=== PATIENT | female | born 1945 | race Caucasian/White ===

== ENCOUNTER 2023-01-21 11:40 | Observation (INO) | payer OTHER, SELFPAY ==
[2023-01-21] VITALS (8 sets, daily range): BP systolic 122–218; BP diastolic 66–117; PULSE 60–140; RESP 14–19; TEMP 36.4–36.8; O2SAT 95–98; BMI 26.5
--- NOTE | ~2023-01-21 | XR_ITS ---
EXAMINATION: XR CHEST 2 VIEW CLINICAL INFORMATION: Chest pain COMPARISON: 05/30/2015 TECHNIQUE: PA and lateral views of the chest obtained. FINDINGS: The lungs are clear. There are no pleural effusions. The cardiomediastinal silhouette is normal. Spondylotic changes are noted in the dorsal spine. XR/XR chest 2V IMPRESSION: No acute cardiopulmonary disease.
--- NOTE | ~2023-01-21 | US_ITS ---
EXAMINATION: US VENOUS ULTRASOUND WITH DOPPLER LOWER EXTREMITY, RIGHT CLINICAL INFORMATION: Right leg swelling COMPARISON: None available. TECHNIQUE: Ultrasound of the deep veins is performed from the hip to the calf with compression sonography and color and pulse Doppler assessment. Spectral analysis with color-flow imaging is performed. FINDINGS: There is normal venous compression and respiratory variation and augmented flow. The visualized common femoral vein, superficial femoral vein, profunda femoral vein, popliteal vein, and the trifurcation region shows no evidence of deep venous thrombosis. There is a complicated cyst in the right popliteal fossa measuring 5.5 x 2.9 x 1.0 cm consistent with a right popliteal fossa Hoff's cyst. US/US venous duplex LE RT IMPRESSION: 1. No evidence of deep vein thrombosis in the right femoral-popliteal system. 2. Complex right popliteal fossa Hoff's cyst.
--- NOTE | 2023-01-21 11:50 | ECG_ITS ---
Test Reason : pain Blood Pressure : / mmHG Vent. Rate : 142 BPM Atrial Rate : 000 BPM P-R Int : 000 ms QRS Dur : 076 ms QT Int : 316 ms P-R-T Axes : 000 014 068 degrees QTc Int : 486 ms Atrial fibrillation with rapid ventricular response Moderate voltage criteria for LVH, may be normal variant ( R in aVL , Sokolow-Vasquez ) Cannot rule out Anterior infarct , age undetermined Abnormal ECG When compared with ECG of 28-FEB-2017 01:49, Atrial fibrillation has replaced Sinus rhythm Vent. rate has increased BY 78 BPM Referred By: Mauricio Lai Electronically Signed By:RUSH MENDOZA
--- NOTE | 2023-01-21 11:50 | ED_ITS ---
HPI - General Adult General Chief complaint: General Medical Stated complaint: SOB Chest Tightness Etc Time Seen by Provider: 01/21/23 12:41 Source: patient and family ( ) Mode of arrival: ambulatory Limitations: no limitations History of Present Illness HPI narrative: 77-year-old female who presents emergency department for evaluation of dizziness, diaphoresis, nausea, shortness of and rapid heartbeat. Patient states she woke up this morning at 07:00 hours. States when she started to walk around in her room she felt lightheaded and dizzy if she was going to pass out. She then became diaphoretic. She developed nausea with no vomiting. She felt her heart was beating very fast and she felt short of breath. She denied any chest pain, neck pain, jaw pain or back pain. This is the 1st time she has had the symptoms . She states that she has noted urinary frequency over the past several months. she denied dysuria or urgency. She states she had 1 episode of diarrhea last night. She denied any dark black bowel movements or bloody bowel movements. Patient states she has noticed swelling in her lower extremities with the right leg being more swollen the left which she believes is been going on for months and sometimes goes away completely. She has noticed increased swelling in her right lower extremity over the past several days with some increased pain in the right leg compared to the left. Related Data Allergies Allergy/AdvReac Type Severity Reaction Status Date / Time Penicillins [PENICILLINS] Allergy Intermediate HIVES Verified 01/21/23 11:49 penicillin V Allergy Unknown Hives Verified 01/21/23 11:49 [facility] Past Medical History [facility] Narrative: Past medical history: Hypertension, asthma, gallstone pancreatitis 2016. Surgical history: Cholecystectomy 2016, hysterectomy. Social history: Patient is and is here with her , James. The she denies tobacco, alcohol and drug use Social History Social History Advance Directives: No Advance Directives Information Provided: Yes Physical Exam ED Vital Signs: Vital Signs - 24 hr 01/21/23 11:49 01/21/23 12:56 Temperature 98 F 97.8 F Pulse Rate 128 H 140 H Respiratory Rate 19 14 Blood Pressure 143/93 H 195/117 H Pulse Oximetry 96 97 Oxygen Delivery Method Room Air Room Air BMI result Body Mass Index 26.5 patient's vital signs revealed an elevated heart rate of 128, elevated respiratory rate of 19, elevated blood pressure of 143/93 with normal temperature normal O2 saturation on room air. Exam: General: Awake, alert in no distress Head: Normocephalic, atraumatic EENT: PERRL, Lids normal, sclera normal, conjunctiva normal, nose normal , ears normal, throat without erythema or exudates Neck: Supple, no adenopathy, trachea midline and nontender Lung: breath sounds symmetric, no wheezing, rales or rhonchi Chest: symmetric movement, nontender Heart: Rapid, irregularly irregular heart rate with normal S1, S2 no murmurs or rubs Abdomen: soft, non-tender, nondistended, normal bowel sounds Back: no vertebral tenderness, no CVAT Extremities: no deformities, moves all extremities symmetrically, patient has trace to 1+ pitting edema in the right lower extremity compared to the left, right lower extremity is larger than the left Skin: no rashes, no lesion, normal color and warmth Neuro: Awake, alert, oriented, normal speech, cranial nerves intact, moves all extremities symmetrically Psych: Pleasant, cooperative Course Course Course Narrative: E- 77-year-old female presents for evaluation of chest tightness, shortness of breath, nausea and dizziness since she woke up this morning. Plan for cardiac workup Medications Administered Discontinued Medications Generic Name Dose Route Start Last Admin Trade Name Freq PRN Reason Stop Dose Admin Aspirin 324 mg 01/21/23 13:51 01/21/23 14:22 Aspirin 81 Mg Tab.Chew PO 01/21/23 13:52 324 mg ONCE ONE Administration Diltiazem HCl 20 mg 01/21/23 12:42 01/21/23 13:02 Diltiazem Hcl 50 Mg/10 Ml Vial IVPUSH 01/21/23 12:43 20 mg STAT STA Administration Enoxaparin Sodium 70 mg 01/21/23 13:51 01/21/23 14:22 Enoxaparin Sodium 80 Mg/0.8 Ml Syringe 1 mg/kg (70 mg) 01/21/23 13:52 70 mg SUBCUT Administration ONCE ONE Medical Decision Making Medical Decision Making MDM Narrative: 77-year-old female with a history of hyperlipidemia, asthma, gallstone pancreatitis, cholecystectomy, hysterectomy who presents emergency department for evaluation of a dizziness, shortness of breath, rapid heart rate that she experience this morning when she woke up at 07:00 hours. Have on presentation to the emergency department the patient was found to have a rapid irregular heart rate 128-160 beats per minute. Exam did reveal rapidly irregular heart rate with trace to 1+ pitting edema to her right lower extremity which was asymmetric compared to the left. Twelve EKG revealed new onset atrial fibrillation with rapid ventricular rate. I ordered the following evaluation CBC, CMP, troponin, BNP, PT/ INR, PTT. Patient was ordered to get diltiazem 20 mg IV, she was placed on a cardiac and O2 saturation monitor . 1431: Patient's 12 EKG is consistent with new onset atrial fibrillation, the patient does have a Q-wave in V1 with for R-wave progression V2 and V3, [address] segment depression V4 through V6. No significant T-wave abnormalities. Compared to EKG dated 02/28/2017 the atrial fibrillation is new, Q-wave in V1 and poor R-wave progression V2 through V3 are new, ST segment depression V4 through V6 are new. Patient's repeat EKG at 14:14 hours revealed that she spontaneously converted to a normal sinus rhythm, she still has a Q-wave in V1 with poor R-wave progression V2 to V3. Patient's laboratory evaluation did reveal an elevated troponin at 48.5 with repeat pending at 15:15 hours. I did discuss the patient's presentation, EKG findings and elevated troponin with the covering senior applications architect, Dr. Styles who felt that the elevated troponin was most likely a type 2 injury caused by her rapid heart rate /atrial fibrillation. he felt the patient could be managed at this facility does not need to be transferred for cardiac catheterization at this time. Patient does have elevated blood pressures and I started her on Cardizem CD 120 mg with 1st oral dose here in the emergency department. 1446: I did discuss the patient's presentation, EKG and laboratory findings with the covering hospitalist, the patient will be admitted to the hospital service for further evaluation and management. Differential Diagnosis Differential Diagnoses: The differential diagnosis associated with the presentation includes differential diagnosis includes was not limited to new onset atrial fibrillation, congestive heart failure, pneumonia, DVT, pulmonary embolism, myocardial infarction, myocardial ischemia, hyperthyroidism Admission/Observation Consideration of admission/observation: Escalation of care including admission/observation considered Consult Healthcare Provider Management of the patient was discussed with: Hospitalist Lab Data MDM Lab Attestation statement: I reviewed the patient's lab results. my independent interpretation patient's laboratory evaluation is as follows: CBC was normal. CMP revealed an elevated glucose of 135. LFTs were normal. Lipase was normal. High sensitive troponin I was elevated at 48.5 01/21/23 12:18 01/21/23 12:18 Labs: Lab Results 01/21/23 Range/Units 12:18 WBC 9.8 (4.8-10.8) X10*3/uL RBC 5.33 (4.20-5.50) X10*6/uL Hgb 14.7 (12.0-16.0) g/dl Hct 45.8 (37.0-47.0) % MCV 85.9 (80.0-98.0) fL MCH 27.6 (27.0-33.0) pg MCHC 32.1 (31.0-35.0) g/dl RDW 13.4 (11.0-16.0) % Plt Count 290 (160-400) X10*3/uL MPV 10.7 (9.4-12.3) fL Immature Gran % (Auto) 0.3 (0.0-0.4) % Neut % (Auto) 73.8 H (45-73) % Lymph % (Auto) 15.0 L (20-40) % [place] % (Auto) 7.8 (2-11) % Eos % (Auto) 2.0 (0-4) % Baso % (Auto) 1.1 (0-2) % Lymph # (Auto) 1.5 (1.2-4.9) X10*3/uL [place] # (Auto) 0.8 (0.1-1.2) X10*3/uL Eos # (Auto) 0.2 (0.0-0.4) X10*3/uL Baso # (Auto) 0.1 (0.0-0.2) X10*3/uL Abs Immat Gran (auto) 0.03 (0.00-0.03) X10*3/uL Absolute Neuts (auto) 7.2 (2.0-8.3) x10*3/uL Absolute Nucleated RBC 0.000 (0.0-0.012) X10*3/uL Nucleated RBC % (auto) 0.0 (0.0-0.2) /100WBC PT 11.7 (11.1-13.3) SEC INR 1.0 (0.9-1.1) APTT 36.1 (26.0-36.4) SEC Sodium 139 (135-145) mmol/L Potassium 4.0 (3.3-5.1) mmol/L Chloride 104 (96-108) mmol/L Carbon Dioxide 26 (22-29) mmol/L Anion Gap 13 (12-20) BUN 14 (9-16) mg/dL Creatinine 0.80 (0.5-1.4) mg/dL Estim Creat Clear Calc 56.5 Estimated GFR > 60 Random Glucose 135 H (60-115) mg/dL Calcium 9.7 (8.4-10.2) mg/dL Total Bilirubin 0.6 (0.0-1.0) mg/dL AST 21 (5-31) U/L ALT 13 (0-31) U/L Alkaline Phosphatase 88 (39-117) U/L Troponin I High Sens 48.5 H (<3.5-17.0) ng/L B-Natriuretic Peptide 161 H (<100) pg/mL Total Protein 6.9 (6.5-8.0) g/dL Albumin 4.0 (3.5-5.0) g/dL Lipase 15 (8-78) U/L Independent Interpretation I performed an independent interpretation of an: EKG and Plain X-Ray ( one-view chest x-ray) Interpretation: my interpretation patient's one-view chest x-ray is as follows: No acute disease my independent interpretation the patient's 12 EKG is as follows: Atrial fibrillation with a rapid ventricular response of 142 beats per minute, no ST segment elevation, [address] segment depression V4, V5 and V6. Q-wave in V1 with poor R-wave progression V 2 to V3, no significant T-wave abnormalities, no PVCs. My independent interpretation patient's 12 EKG done at 14:14 hours is as follows: Normal sinus rhythm with a rate of 69, no ST segment elevation, no ST segment depression, Q-wave in V1, poor R-wave progression V2 to V3, no significant T-wave abnormalities, compared to the previous EKG the atrial fibrillation has resolved. Radiology Impression Discussion of test interpretation with radiology: I have reviewed the radiologist's reading. Radiologist Impression: XR chest 2V IMPRESSION: No acute cardiopulmonary disease. Dictated By: Sal Toussaint MD Critical Care Time Critical Care Time Critical Care Time: Yes Total Critical Care Time: 45 Attestation: Critical Care: The patient was critically ill with a high probability of imminent or life threatening deterioration. I spent greater than 30 minutes of discontinuous time evaluating the patient,delivering critical care at the bedside, discussing and evaluating pertinent data with consultants. Critical care time does not include time spent performing separately billable procedures or teaching. Total time spent performing critical care was 45 minutes. Discharge Plan Discharge Patient Disposition: Admitted As Inpatient
[2023-01-21 12:25] LABS: MANUAL DIFF FLAG NO
[2023-01-21 12:28] LABS: Basophils Absolute Auto 0.1 X10*3/uL (0.0-0.2); Basophils Percent Auto 1.1 % (0-2); Eosinophils Absolute Auto 0.2 X10*3/uL (0.0-0.4); Hematocrit 45.8 % (37.0-47.0); Hemoglobin 14.7 g/dl (12.0-16.0); Imm Gran Abs Auto 0.03 X10*3/uL (0.00-0.03); Imm Gran Pct Auto 0.3 % (0.0-0.4); Lymphocytes Absolute Auto 1.5 X10*3/uL (1.2-4.9); Mean Corpuscular HGB Conc 32.1 g/dl (31.0-35.0); Mean Corpuscular Hemoglobin 27.6 pg (27.0-33.0); Mean Corpuscular Volume 85.9 fL (80.0-98.0); Mean Platelet Volume 10.7 fL (9.4-12.3); Monocytes Absolute Auto 0.8 X10*3/uL (0.1-1.2); Monocytes Percent Auto 7.8 % (2-11); Neutrophils Absolute Auto 7.2 x10*3/uL (2.0-8.3); Neutrophils Percent Auto 73.8 % (45-73); Platelet Count 290 X10*3/uL (160-400); Red Blood Count 5.33 X10*6/uL (4.20-5.50); Red Cell Distribution Width 13.4 % (11.0-16.0); White Blood Count 9.8 X10*3/uL (4.8-10.8)
[2023-01-21 12:37] LABS: Prothrombin Time 11.7 SEC (11.1-13.3)
--- NOTE | 2023-01-21 12:38 | PC.NURSE ---
alert and oriented, respirations even and unlabored. placed on ct technologist, noted to be in afib. pt denies any hx of afib, no blood thinners. iv established, providers made aware of pt.
[2023-01-21 12:39] LABS: Partial Thromboplastin Time 36.1 SEC (26.0-36.4)
[2023-01-21 12:44] LABS: Alanine Aminotransferase 13 U/L (0-31); Alkaline Phosphatase 88 U/L (39-117); Anion Gap 13 (12-20); Aspartate Amino Transferase 21 U/L (5-31); Bilirubin Total 0.6 mg/dL (0.0-1.0); Blood Urea Nitrogen 14 mg/dL (9-16); Calcium 9.7 mg/dL (8.4-10.2); Carbon Dioxide 26 mmol/L (22-29); Chloride 104 mmol/L (96-108); Creatinine Clr Calc Pharmacy 56.5; Estimated Glomerular Filt Rate > 60; Glucose Random 135 mg/dL (60-115); Lipase 15 U/L (8-78); Sodium 139 mmol/L (135-145); Total Protein 6.9 g/dL (6.5-8.0)
[2023-01-21 12:50] LABS: B Type Natriuretic Peptide 161 pg/mL (<100)
[2023-01-21 12:52] LABS: Troponin-I High Sensitivity 48.5 ng/L (<3.5-17.0)
--- NOTE | 2023-01-21 12:56 | PC.NURSE ---
back from xray, pt reported dizziness when getting out of wheelchair in xray. bedside commode utilized at this time due to dizziness upon standing.
[2023-01-21] MEDS: dilTIAZem HCL 50 MG/10 ML VIAL 20 MG IVPUSH (13:02)
--- NOTE | 2023-01-21 14:08 | ECG_ITS ---
Test Reason : ?nsr Blood Pressure : / mmHG Vent. Rate : 069 BPM Atrial Rate : 069 BPM P-R Int : 152 ms QRS Dur : 082 ms QT Int : 412 ms P-R-T Axes : 048 013 036 degrees QTc Int : 441 ms Normal sinus rhythm Voltage criteria for left ventricular hypertrophy ( R in aVL , Sokolow-Vasquez , [place] product ) Cannot rule out Anterior infarct (cited on or before 21-JAN-2023) Abnormal ECG When compared with ECG of 21-JAN-2023 12:10, Sinus rhythm has replaced Atrial fibrillation Vent. rate has decreased BY 73 BPM Referred By: Kirill Seo Electronically Signed By:RUSH MENDOZA
--- NOTE | 2023-01-21 14:10 | PC.NURSE ---
pt appears to be NSR on monitor, repeat ekg to be obtained. plan for repeat troponin at 1515.
[2023-01-21] MEDS: Aspirin 81 MG TAB.CHEW 324 MG PO (14:22)
[2023-01-21] MEDS: Enoxaparin Sodium 80 MG/0.8 ML SYRINGE 70 MG SUBCUT (14:22)
--- NOTE | 2023-01-21 14:50 | PC.NURSE ---
ultrasound at bedside
[2023-01-21 15:13] LABS: TSH reflex Free T4 2.09 uIU/mL (0.32-4.0)
[2023-01-21] MEDS: dilTIAZem HCL CD 120 MG CAP.ER.DEG PO (15:19)
--- NOTE | 2023-01-21 15:26 | PHA.MEDREC ---
Pharmacy Consult ? Medication Reconciliation Pharmacy has completed the medication reconciliation. Patient confirmed medications. Rosalva Monreal, FedeD
--- NOTE | 2023-01-21 15:42 | P.HPHOSP_ITS ---
History of Present Illness Date of Service: 01/21/23 Attending physician on admission: Carm[facility] Chief Complaint: palpitations, zamarripa 77-year-old female with mild persistent asthma, history of gallstone pancreatitis, and hypertension noncompliant with antihypertensive agents presented to the ED earlier today for evaluation of sudden-onset palpitations, nausea, diaphoresis, and dyspnea on exertion. She denies any fevers, chills, abdominal pain, vomiting, diarrhea, lightheadedness, shortness of breath at rest, or chest pain. She has also had long standing swelling RLE. Has no known history of cardiovascular disease or arrhythmia. On arrival, patient tachycardic to 128, worsened to 140 but returned to normal in the 60s on admission. She also became hypertensive to 195/117. Hematology studies unremarkable. Coag studies unremarkable. Renal function electrolyte levels normal though magnesium level pending. TSH normal at 2.09. Initial troponin elevated at 44, repeat pending. BNP 161. Chest x-ray negative for acute cardiopulmonary illness. Venous duplex of the right lower extremity negative for any DVT but showed complex right popliteal fossa Hoff cyst. Initial EKG showed atrial fibrillation with RVR, rate 142, with Q-wave in V1 and poor R-wave progression V2, V3 with ST segment depression in V4 through V6. She was given 20 mg push IV diltiazem with resolution of atrial fibrillation. Repeat EKG showed NSR, rate [address] depressions resolved. No CARI. Given concern for ACS due to elevated troponin, she was given 324 mg aspirin and 70 mGy g therapeutic Lovenox. However after discussion between ED provider and miller head, it is more likely that troponin elevation is demand. She was also given p.o. 120 mg diltiazem. She will be admitted for further evaluation and management of new onset atrial fibrillation. Review of Systems 2 Review of Systems: General: No fevers, malaise, unintentional weight loss HEENT: No blurred vision, diplopia. No sore throat, nasal congestion, rhinorrhea, sinus pain, ear pain Cardiovascular: +palpitations, BLE edema. No chest pain Respiratory: +zamarripa. No wheezing, cough GI: +nausea. No abdominal pain, vomiting, diarrhea, constipation, melena, hematochezia : No dysuria, hematuria, increased urinary frequency, decreased urinary output MSK: No myalgia, back pain Neuro: No headaches, weakness, paresthesias Skin: No rashes or lesions [facility] Medical History (Updated 01/21/23 @ 15:52 by TIM Upton) Gallstone pancreatitis Asthma Hypertension Surgical History (Updated 01/21/23 @ 15:52 by TIM Upton) S/P cholecystectomy Social History Household Members: Spouse Housing: House Do you presently have visiting nurse or other home services: No Patient Tobacco Use Status: Never used Tobacco Use of substances other than those prescribed or required for medical reasons: No Currently Displaying Signs/Symptoms of Drug Intoxication Withdrawal: No Any prior treatment program specific to substance use: No Have you been hit, kicked, punched, or otherwise hurt by someone within the past year? If so, by whom?: No Do you feel safe in your current relationship?: Yes Is there a partner from a previous relationship who is making you feel unsafe now?: No Are you made to feel afraid or neglected: No Spiritual Healthcare Practices: /NONE Advance Directives: No Advance Directives Information Provided: Yes Advance Directives on File: No Do you have thoughts of harming others: None Do you have a plan to hurt others: No Plan Recently lost weight without trying: No Eating poorly because of decreased appetite: No Nutrition Risks: Anorexia Patient : No : No Poor oral hygiene: No Meds Allergies Allergy/AdvReac Type Severity Reaction Status Date / Time Penicillins [PENICILLINS] Allergy Intermediate HIVES Verified 01/21/23 11:49 penicillin V Allergy Unknown Hives Verified 01/21/23 11:49 Home Medications Medication Instructions Recorded Confirmed Last Taken Type albuterol sulfate 90 mcg/actuation 2 puff inhalation Q4H PRN 01/21/23 01/21/23 Unknown History aerosol inhaler Shortness Of Breath Or Wheezing colestipol 1 gram tablet 2 g PO BID 01/21/23 01/21/23 01/21/23 History fluticasone propionate 220 1 puff inhalation BID 01/21/23 01/21/23 01/21/23 History mcg/actuation HFA aerosol inhaler (Flovent HFA) Physical Exam 2 Vital Signs and Narrative: Vital Signs: Last Vital Signs Temp 97.8 F 01/21/23 12:56 Pulse 140 H 01/21/23 12:56 Resp 14 01/21/23 12:56 BP 195/117 H 01/21/23 12:56 Pulse Ox 97 01/21/23 12:56 O2 Del Method Room Air 01/21/23 12:56 BMI result Body Mass Index 26.5 Constitutional - Awake and Alert, No apparent distress Eyes - PERRLA, EOMI Cardiovascular - S1S2, RRR, 1+ edema BLE Respiratory - Normal lung expansion, Normal respiratory effort, No respiratory distress, CTA bilaterally Gastrointestinal - NT / ND; +BS; No rebound or guarding Extremities - no calf tenderness bilaterally, swelling RLE Skin - Warm/Dry Neurological - Alert & oriented x3 Psychological - Appropriate affect Results Labs 01/22/23 06:10 01/22/23 06:10 Labs: Laboratory Results - last 24 hr 01/21/23 12:18 MCV 85.9 MCH 27.6 MCHC 32.1 RDW 13.4 Plt Count 290 MPV 10.7 Immature Gran % (Auto) 0.3 Neut % (Auto) 73.8 H Lymph % (Auto) 15.0 L [place] % (Auto) 7.8 Eos % (Auto) 2.0 Baso % (Auto) 1.1 Lymph # (Auto) 1.5 [place] # (Auto) 0.8 Eos # (Auto) 0.2 Baso # (Auto) 0.1 Abs Immat Gran (auto) 0.03 Absolute Neuts (auto) 7.2 Absolute Nucleated RBC 0.000 Nucleated RBC % (auto) 0.0 PT 11.7 INR 1.0 APTT 36.1 Anion Gap 13 Estim Creat Clear Calc 56.5 Estimated GFR > 60 Random Glucose 135 H Calcium 9.7 Total Bilirubin 0.6 AST 21 ALT 13 Alkaline Phosphatase 88 B-Natriuretic Peptide 161 H Total Protein 6.9 Albumin 4.0 Lipase 15 TSH 2.09 Imaging Radiologist's Impressions: Impressions Chest X-Ray 01/21/23 12:45 IMPRESSION: No acute cardiopulmonary disease. Venous Duplex 01/21/23 15:01 IMPRESSION: 1. No evidence of deep vein thrombosis in the right femoral-popliteal system. 2. Complex right popliteal fossa Hoff's cyst. Assessment and Plan (1) New onset atrial fibrillation: Status: Acute (2) Elevated troponin: Status: Acute Plan 77-year-old female with mild persistent asthma, history of gallstone pancreatitis, and hypertension noncompliant with antihypertensive agents to be observed for new onset atrial fibrillation. #New onset atrial fibrillation-initially RVR, now rate controlled -now in NSR, rate 69 following IV diltiazem -continue diltiazem 120 mg CD daily -cardiac diet -echocardiogram ordered - chads Vasc score 3. Discussed risks and benefits of anticoagulation with patient and her . She has no contraindications. We will initiate Eliquis 5 mg b.i.d. -cardiology consult -TSH normal, magnesium pending -monitor on telemetry # elevated troponin -likely demand due to AFib with RVR -initial troponin 44, repeat 213. Discussed with cardiology. Proceed with eliquis. -initial EKG with possible ST depressions but these are no longer present on repeat EKG showing NSR, rate 49, no ST depressions # hypertension -previously noncompliant with antihypertensives -continue diltiazem 120 mg CD -monitor blood pressure and adjust antihypertensives as needed # mild persistent asthma -no acute exacerbation -continue Flovent, albuterol p.r.n. #RLE swelling -Venous duplex negative for DVT, but shows complex Hoff cyst -outpatient follow-up DVT prophylaxis- Eliquis Full code Time Spent With Patient Time: Total time managing care of this patient today ____ minutes. Quality Stroke Does the patient have a stroke diagnosis?: No VTE Prior VTE?: No VTE Risk Level:: Medical - moderate - high VTE Device Contraindication: Treatment Not Indicated VTE Drug Contraindication: N/A - Med Ordered
[2023-01-21 15:54] LABS: Troponin-I High Sensitivity 213.4 ng/L (<3.5-17.0)
[2023-01-21] MEDS: Nitroglycerin 2 % Oint 1 GM Packet 1 INCH TRANSDERMA (18:19)
[2023-01-21] MEDS: Labetalol HCL 100 MG/20 ML VIAL 10 MG IVPUSH (19:14)
[2023-01-21 21:25] LABS: Appearance Urine Clear; Color Urine Yellow; Glucose Urine UA Negative (Negative); Leukocyte Esterase Urine Trace (Negative); Nitrite Urine Negative (Negative); PH 6.5 (5.0-9.0); UMIC TRIGGER UACC YES; Urine Blood Negative (Negative); Urine Ketones 15 mg/dL (Negative); Urine Protein Negative (Neg-Trace)
[2023-01-21] MEDS: 0.9 % Sodium Chloride Flush 3 ML SYRINGE IVFLUSH (21:28)
[2023-01-21 21:30] LABS: Bacteria Urine None Seen (None Seen); Hyaline Casts Urine 0-2 /LPF (0-2); RBC Urine 0-2 /HPF (0-2); Squamous Epithelial Cell Urine 0-2 /HPF (0-2); WBC Urine 0-5 /HPF (0-5)
[2023-01-21] MEDS: Fluticasone Propionate 250 MCG BLST.W.DEV 1 PUFF INHALE (22:47)
[2023-01-22] VITALS: BP 143/82; PULSE 59; RESP 15; TEMP 36.6; O2SAT 97
[2023-01-22] MEDS: Apixaban 5 MG TABLET PO ×2 (02:04→08:30)
[2023-01-22 03:59] VITALS: BP 154/78; PULSE 67; RESP 14; TEMP 36.7; O2SAT 98
[2023-01-22 06:34] LABS: MANUAL DIFF FLAG NO
[2023-01-22 06:46] LABS: Basophils Absolute Auto 0.1 X10*3/uL (0.0-0.2); Basophils Percent Auto 1.3 % (0-2); Eosinophils Absolute Auto 0.2 X10*3/uL (0.0-0.4); Eosinophils Percent Auto 3.1 % (0-4); Hematocrit 39.6 % (37.0-47.0); Hemoglobin 12.8 g/dl (12.0-16.0); Imm Gran Abs Auto 0.01 X10*3/uL (0.00-0.03); Imm Gran Pct Auto 0.1 % (0.0-0.4); Lymphocytes Absolute Auto 1.6 X10*3/uL (1.2-4.9); Lymphocytes Percent Auto 24.3 % (20-40); Mean Corpuscular HGB Conc 32.3 g/dl (31.0-35.0); Mean Corpuscular Hemoglobin 27.5 pg (27.0-33.0); Mean Corpuscular Volume 85.2 fL (80.0-98.0); Mean Platelet Volume 11.3 fL (9.4-12.3); Monocytes Absolute Auto 0.6 X10*3/uL (0.1-1.2); Monocytes Percent Auto 9.6 % (2-11); Neutrophils Absolute Auto 4.1 x10*3/uL (2.0-8.3); Neutrophils Percent Auto 61.6 % (45-73); Platelet Count 234 X10*3/uL (160-400); Red Blood Count 4.65 X10*6/uL (4.20-5.50); Red Cell Distribution Width 13.4 % (11.0-16.0); White Blood Count 6.7 X10*3/uL (4.8-10.8)
--- NOTE | 2023-01-22 07:00 | CA_ITS ---
Transthoracic Echocardiogram Patient (Last, First, Middle): Ruby Palacio M Gender: Female Date of : 1945 Age: 77 Procedure Date: 01/22/2023 Procedure Type: Transthoracic Echocardiogram Location: [facility] [place] Height: 162.56 cm Weight: 69.85 kg BSA: 1.75 m2 Heart Rate: 62 bpm BP: 189 / 95 mmHg Senior Talent Acquisition Specialist: SB Referring MD: Stephenie DUMONT Symptoms: new onset afib Study Quality: Adequate ECG Rhythm: Sinus Conclusions: - The left ventricular systolic function is normal. The calculated ejection fraction is 67% by biplane method. - There is mild calcification of the aortic valve. No significant aortic stenosis. - Mild pulmonary hypertension is present. - There is mild dilatation of the ascending aorta measuring 3.90 cm. Findings Left Ventricle Normal left ventricular cavity size. The left ventricular systolic function is normal. The calculated ejection fraction is 67% by biplane method. There is no evidence of regional wall motion abnormalities. Evidence suggests grade I (mild) diastolic dysfunction. There is moderate septal and moderate basal asymmetric hypertrophy. Right Ventricle Normal right ventricular cavity size and systolic function. Atria The left atrium is mildly dilated. The right atrium is normal in size. Aortic Valve There is a normal trileaflet aortic valve. There is mild calcification of the aortic valve. There is trace (trivial) aortic valve regurgitation. No significant aortic stenosis. Mitral Valve The mitral valve appears normal. There is mild mitral valve regurgitation. There is no mitral valve stenosis. Pulmonic Valve The pulmonic valve is likely normal. Tricuspid Valve There is mild tricuspid valve regurgitation. Mild pulmonary hypertension is present. Great Vessels There is mild dilatation of the ascending aorta measuring 3.90 cm. Small plaque is seen in the sinuses of Valsalva. Venous The inferior vena cava is normal in size and collapses greater than 50% with inspiration. Pericardium/Pleural There is no evidence of pericardial effusion. Prior Study Comparison No prior study available for comparison. Measurements 2D Linear Measurements IVSd: 0.90 0.6-0.9/0.6-1.0 cm LVIDd: 5.12 3.9-5.3/4.2-5.9 cm LVIDd Index: 2.93 2.4-3.2/2.2-3.1 cm/m2 LVIDs: 3.34 2.0-3.6 cm LVPWd: 0.86 0.7-1.1 cm LA Diam: 3.70 2.7-3.8/3.0-4.0 cm LAIDs Index: 2.11 1.5-2.3 cm/m2 LV Mass: 197.63 67-162/88-224 g LV Mass Index: 112.93 43-95/49-115 g/m2 LVOT Diam: 2.00 3.0+(-)1.3 cm 2D Systolic Function EF 4C: 65.20 >55% EF 2C: 67.60 >55% EF BiP: 67.20 >55% Mitral Valve MV Pk E: 0.66 MV PK A: 0.67 MV Decel Time: 197.00 E/A: 1.00 E'Lateral: 5.22 E'Medial: 5.44 E/E' Med: 12.10 E/E' Lat: 12.60 PHT: 58.00 MVA PHT: 3.79 Decel [place]: 3.35 Aortic Valve AoV Pk Mian: 1.82 AoV Pk Grad: 13.00 [place]EL[place]: 1.93 AI Pk Mian: 3.60 AI [place]: 1.27 LVOT LVOT Pk Mian: 1.12 LVOT Mn Mian: 0.79 LVOT VTI: 0.22 LVOT Pk Grad: 5.00 LVOT Mn Grad: 3.00 LVOT Diam: 2.00 LVOT Area: 3.14 Diastolic Function MV Pk E: 0.66 MV Pk A: 0.67 E/A: 1.00 E'Medial: 5.44 E/E' Med: 12.10 E' Laterial: 5.22 E/E' Lat: 12.60 Right Ventricle TAPSE (mm): 30.00 TVS' Mian: 12.90 Tricuspid Valve TR Pk Mian: 2.94 TR Pk Grad: 35.00 RA Press: 3.00 RVSP: 38.00 Great Vessels Aorta Sinus of Valsalva: 3.20 2.0-3.5 cm Ao Asc: 3.90 2.1-3.4 cm Pulmonary Veins Pulm Vein S/D 1.20 Pulmonary Valve PV Pk Mian: 0.91 Peak PV Grad: 3.00 Updated in Other Vendor System with Status of Final Dany Styles MD electronically signed on 01/22/2023 11:53:30 AM with status of Final
[2023-01-22 07:02] LABS: Anion Gap 10 (12-20); Blood Urea Nitrogen 15 mg/dL (9-16); Calcium 8.9 mg/dL (8.4-10.2); Carbon Dioxide 28 mmol/L (22-29); Chloride 104 mmol/L (96-108); Creatinine Clr Calc Pharmacy 68.5; Estimated Glomerular Filt Rate > 60; Glucose Random 106 mg/dL (60-115); Potassium 3.4 mmol/L (3.3-5.1); Sodium 139 mmol/L (135-145)
--- NOTE | 2023-01-22 07:23 | PM.DS ---
DS: Providers Provider Date of Service: 01/22/23 Date of admission: 01/21/23 15:36 Primary care physician: None Physician Consults: 01/21/23 15:38 Consult to Cardiology Routine Consulting Provider: [facility] [place] Cardiovascular Services Reason for consultation: new onset afib DS: Diagnosis Discharge Diagnosis (1) New onset atrial fibrillation: Status: Acute (2) Elevated troponin: Status: Acute DS: Summary Hospital Course Hospital Course: Chief Complaint: palpitations, zamarripa 77-year-old female with mild persistent asthma, history of gallstone pancreatitis, and hypertension noncompliant with antihypertensive agents presented to the ED earlier today for evaluation of sudden-onset palpitations, nausea, diaphoresis, and dyspnea on exertion. She denies any fevers, chills, abdominal pain, vomiting, diarrhea, lightheadedness, shortness of breath at rest, or chest pain. She has also had long standing swelling RLE. Has no known history of cardiovascular disease or arrhythmia. On arrival, patient tachycardic to 128, worsened to 140 but returned to normal in the 60s on admission. She also became hypertensive to 195/117. Hematology studies unremarkable. Coag studies unremarkable. Renal function electrolyte levels normal though magnesium level pending. TSH normal at 2.09. Initial troponin elevated at 44, repeat pending. BNP 161. Chest x-ray negative for acute cardiopulmonary illness. Venous duplex of the right lower extremity negative for any DVT but showed complex right popliteal fossa Hoff cyst. Initial EKG showed atrial fibrillation with RVR, rate 142, with Q-wave in V1 and poor R-wave progression V2, V3 with ST segment depression in V4 through V6. She was given 20 mg push IV diltiazem with resolution of atrial fibrillation. Repeat EKG showed NSR, rate [address] depressions resolved. No CARI. Given concern for ACS due to elevated troponin, she was given 324 mg aspirin and 70 mGy g therapeutic Lovenox. However after discussion between ED provider and primary class teacher, it is more likely that troponin elevation is demand. She was also given p.o. 120 mg diltiazem. She will be admitted for further evaluation and management of new onset atrial fibrillation. Hospital course: Patient presented with palpitation and shortness of breath with exertion and found to be in atrial fibrillation with rapid ventricular response heart rate of 120s to 140, and mild increased in troponin of 44, normal BNP and no clinical evidence of heart failure. She was given IV cardizem 20 mg and subsequently converted to sinus rhythm rate in 60s, was given eliquis. TSH is normal. Echo show.... Her discharge regimen include cardizem 120 mg daily to contol heart rate and eliquis 5 mg twice for stroke prevention, no bleeding risk identied, and risks of bleeding discussed with her Time Spent with Patient Time attestation: Total time managing care of this patient today ____ minutes. Discharge coordination time: Greater than 30 minutes Quality: Safe Use of Opioids Does Pt have an Active Cancer Diagnosis on the Problem List?: No Quality: Stroke Does the patient have a stroke diagnosis?: No Physical Exam Vital Signs: Vital Signs: Last Vital Signs Temp 98.1 F 01/22/23 03:59 Pulse 67 01/22/23 03:59 Resp 14 01/22/23 03:59 BP 154/78 H 01/22/23 03:59 Pulse Ox 98 01/22/23 03:59 O2 Del Method Room Air 01/22/23 03:59 BMI result Body Mass Index 26.5 Const: Other: General: AO X 3, no acute distress Resp: CTA bilateral CVS: S1,S2,RRR GI: +BS, NT, no distention Skin: No rash Neuro: motor grossly intact Psych: appropriate affect DS: Data Data Completed and Pending Labs on day of discharge: Laboratory Results - last 24 hr 01/21/23 01/21/23 01/21/23 02:05 12:18 15:25 WBC 9.8 RBC 5.33 Hgb 14.7 Hct 45.8 MCV 85.9 MCH 27.6 MCHC 32.1 RDW 13.4 Plt Count 290 MPV 10.7 Immature Gran % (Auto) 0.3 Neut % (Auto) 73.8 H Lymph % (Auto) 15.0 L [place] % (Auto) 7.8 Eos % (Auto) 2.0 Baso % (Auto) 1.1 Lymph # (Auto) 1.5 [place] # (Auto) 0.8 Eos # (Auto) 0.2 Baso # (Auto) 0.1 Abs Immat Gran (auto) 0.03 Absolute Neuts (auto) 7.2 Absolute Nucleated RBC 0.000 Nucleated RBC % (auto) 0.0 PT 11.7 INR 1.0 APTT 36.1 Sodium 139 Potassium 4.0 Chloride 104 Carbon Dioxide 26 Anion Gap 13 BUN 14 Creatinine 0.80 Estim Creat Clear Calc 56.5 Estimated GFR > 60 Random Glucose 135 H Calcium 9.7 Magnesium 2.0 Total Bilirubin 0.6 AST 21 ALT 13 Alkaline Phosphatase 88 Troponin I High Sens 48.5 H 213.4 H* D B-Natriuretic Peptide 161 H Total Protein 6.9 Albumin 4.0 Lipase 15 TSH 2.09 Urine Color Yellow Urine Appearance Clear Urine pH 6.5 Ur Specific [place] 1.010 Urine Protein Negative Urine Glucose (UA) Negative Urine Ketones 15 Urine Blood Negative Urine Nitrite Negative Ur Leukocyte Esterase Trace H Urine RBC 0-2 Urine WBC 0-5 Ur Squamous Epith Cells 0-2 Urine Bacteria None Seen Hyaline Casts 0-2 01/22/23 06:10 WBC 6.7 RBC 4.65 Hgb 12.8 Hct 39.6 MCV 85.2 MCH 27.5 MCHC 32.3 RDW 13.4 Plt Count 234 MPV 11.3 Immature Gran % (Auto) 0.1 Neut % (Auto) 61.6 Lymph % (Auto) 24.3 [place] % (Auto) 9.6 Eos % (Auto) 3.1 Baso % (Auto) 1.3 Lymph # (Auto) 1.6 [place] # (Auto) 0.6 Eos # (Auto) 0.2 Baso # (Auto) 0.1 Abs Immat Gran (auto) 0.01 Absolute Neuts (auto) 4.1 Absolute Nucleated RBC 0.000 Nucleated RBC % (auto) 0.0 PT INR APTT Sodium 139 Potassium 3.4 Chloride 104 Carbon Dioxide 28 Anion Gap 10 L BUN 15 Creatinine 0.66 Estim Creat Clear Calc 68.5 Estimated GFR > 60 Random Glucose 106 Calcium 8.9 D Magnesium Total Bilirubin AST ALT Alkaline Phosphatase Troponin I High Sens B-Natriuretic Peptide Total Protein Albumin Lipase TSH Urine Color Urine Appearance Urine pH Ur Specific [place] Urine Protein Urine Glucose (UA) Urine Ketones Urine Blood Urine Nitrite Ur Leukocyte Esterase Urine RBC Urine WBC Ur Squamous Epith Cells Urine Bacteria Hyaline Casts Discharge Plan Discharge Anticipated Discharge Date/Time: 01/22/23 07:24 Patient Disposition: Home, Self-Care Discharge Diagnosis: New onset afib Referrals: Physician,None [Primary Care Provider] - 1 Week Discharge Medications: New Eliquis 5 mg Tablet 5 mg PO BID Qty: 60 0RF diltiazem HCl [Cardizem CD] 120 mg Capsule,Extended Release 24hr 120 mg PO DAILY Qty: 30 0RF Protocol: Hold for SBP/HR < HOLD for SBP < : 90 HOLD for HR < : 60 Continued fluticasone propionate [Flovent HFA] 220 mcg/actuation HFA aerosol inhaler 1 puff inhalation BID albuterol sulfate 90 mcg/actuation HFA aerosol inhaler 2 puff inhalation Q4H PRN (Reason: Shortness Of Breath Or Wheezing) colestipol 1 gram tablet 2 g PO BID No Action lisinopril [Zestril] 30 mg tablet 30 mg PO DIRECTED Qty: 40 1RF Rx Instructions: Take 1 tablet every AM, if BP remains elevated may take an additional tablet in the PM. Discharge Orders: Discharge Order (Routine); Ordered 01/22/23 Ordered By: Carmelo Redding Diet: Advance to usual diet Activity on Discharge: As tolerated Stand Alone Forms: Patient Portal Discharge page Care Plan Goals: control of afib and stroke prevention Health Concerns: new atrial fibirilation Plan of Treatment: take cardizem to control heart rate and eliquis to thin your blood and prevent stroke take lisinopril 30 mg daily to control your blood pressure follow up with your doctor in a week to follow up on high blood pressure Assessment: as above Discharge Date/Time: 01/22/23 14:59
[2023-01-22] MEDS: Fluticasone Propionate 250 MCG BLST.W.DEV 1 PUFF INHALE (07:34)
[2023-01-22 07:36] VITALS: BP 190/94; PULSE 60; PULSE 64; RESP 16; RESP 18; TEMP 36.6; O2SAT 98
[2023-01-22] MEDS: lisinopriL 10 MG TABLET PO (08:29)
[2023-01-22] MEDS: dilTIAZem HCL CD 120 MG CAP.ER.DEG PO (08:30)
[2023-01-22] MEDS: 0.9 % Sodium Chloride Flush 3 ML SYRINGE IVFLUSH (08:30)
--- NOTE | 2023-01-22 09:12 | MHC.CM.PN ---
IQRA 01/22. Pt lives at home with her , self-care. D/C plan return home self-care when medically cleared, pts to transport home. HCP completed, now on file. No PCP, local list of PCP's given to pt.
[2023-01-22] MEDS: lisinopriL 20 MG TABLET PO (10:44)
--- NOTE | 2023-01-22 11:13 | PM.CNCAR ---
History of Present Illness History of Present Illness Date of Service: 01/22/23 Chief complaint: New Onset Atrial Fibrillation Narrative: This is a cardiology consultation regarding atrial fibrillation rapid ventricular rate. Patient denies any history of cardiac issues including coronary disease, myocardial infarction or cardiomyopathy or any other cardiac concerns in the past. She states she is fairly active without any major limitations. She has hypertension but states she does not take her meds regularly. Otherwise, according to her, she has recently healthy. Current admission is for symptoms of feeling palpitations but she did have any chest pain. Then detected to have atrial fibrillation with rapid ventricular rate. She got medications including labetalol, diltiazem and eventually, she converted back to sinus rhythm. She has been okay since then. No specific complaints. Blood pressure however seems high. Review of Systems Review of Systems: Yes all other systems are reviewed and are negative Constitutional: Constitutional: Reports as per HPI and Reports no additional constitutional complaints Eyes: Eyes: Reports as per HPI and Denies no additional eye complaints ENT: Denies system reviewed and no additional complaints, except as documented and Reports as per HPI Cardiovascular: Cardiovascular: Reports as per HPI, Reports no additional cardiovascular complaints, Denies acrocyanosis, Denies cool extremities, Denies chest pain, Denies leg edema, Denies lightheadedness, Denies palpitations and Denies dyspnea Respiratory: Respiratory: Reports as per HPI, Denies no additional respiratory complaints and Denies dyspnea Gastrointestinal: Gastrointestinal: Reports as per HPI and Denies no additional gastrointestinal complaints Genitourinary: Genitourinary: Reports as per HPI Musculoskeletal: Musculoskeletal: Reports no additional musculoskeletal complaints and Reports as per HPI Integumentary/Breasts: Skin/Breast: Reports system reviewed and no additional complaints, except as docu Neurologic: Reports system reviewed and no additional complaints, except as documented and Reports as per HPI Psychiatric: Psychiatric: Reports no additional psychiatric complaints and Reports as per HPI Endocrine: Endocrine: Reports no additional endocrine complaints, Reports as per HPI and Denies palpitations Hematologic/Lymphatic: Hematologic/Lymphatic: Reports no additional hematologic/lymphatic complaints and Reports as per HPI Allergic/Immunologic: Allergic/Immunologic: Reports no additional allergic/immunologic complaints and Reports as per HPI [facility] Past Medical History Medical History (Updated 01/22/23 @ 11:19 by Dany Styles MD) Gallstone pancreatitis Asthma Hypertension Family History Family History (Updated 01/22/23 @ 11:21 by Dany Styles MD) Mother Heart disease Surgical History Surgical History (Updated 01/21/23 @ 15:52 by TIM Upton) S/P cholecystectomy Social History Social History Household Members: Spouse Housing: House Do you presently have visiting nurse or other home services: No Patient Tobacco Use Status: Never used Tobacco Use of substances other than those prescribed or required for medical reasons: No Currently Displaying Signs/Symptoms of Drug Intoxication Withdrawal: No Any prior treatment program specific to substance use: No Have you been hit, kicked, punched, or otherwise hurt by someone within the past year? If so, by whom?: No Do you feel safe in your current relationship?: Yes Is there a partner from a previous relationship who is making you feel unsafe now?: No Are you made to feel afraid or neglected: No Spiritual Healthcare Practices: /NONE Advance Directives: No Advance Directives Information Provided: Yes Advance Directives on File: No Do you have thoughts of harming others: None Do you have a plan to hurt others: No Plan Recently lost weight without trying: No Eating poorly because of decreased appetite: No Nutrition Risks: Anorexia Patient : No : No Poor oral hygiene: No service: No Meds Allergies Allergy/AdvReac Type Severity Reaction Status Date / Time Penicillins [PENICILLINS] Allergy Intermediate HIVES Verified 01/21/23 11:49 penicillin V Allergy Unknown Hives Verified 01/21/23 11:49 Active Medications: Current Medications Acetaminophen (Acetaminophen 325 Mg Tablet) 650 mg PO Q6H PRN PRN Reason: Pain, Mild (Pain Scale 1-3) Albuterol Sulfate (Albuterol Sulfate 90 Mcg 8 Gm Inhaler) 2 puff INHALE Q4H PRN PRN Reason: Shortness Of Breath Or Wheezing Apixaban (Apixaban 5 Mg Tablet) 5 mg PO BID KIKA Last Admin: 01/22/23 08:30 Dose: 5 mg Diltiazem HCl (Diltiazem Hcl Cd 120 Mg Cap.Er.Deg) 120 mg PO DAILY KIKA; Protocol Last Admin: 01/22/23 08:30 Dose: 120 mg Docusate Sodium (Docusate Sodium 100 Mg Capsule) 100 mg PO DAILY PRN PRN Reason: Constipation Fluticasone Propionate (Fluticasone Propionate 250 Mcg Blst.W.Dev) 1 puff INHALE RBID [facility] Last Admin: 01/22/23 07:34 Dose: 1 puff Lisinopril (Lisinopril 10 Mg Tablet) 10 mg PO DAILY [facility]; Protocol Last Admin: 01/22/23 08:29 Dose: 10 mg Non-Formulary Medication (Colestipol) 2 gm PO BID [facility] Ondansetron HCl (Ondansetron Hcl 4 Mg/2 Ml Vial) 4 mg IVPUSH Q8H PRN PRN Reason: Nausea and Vomiting Sodium Chloride (0.9 % Sodium Chloride Flush 3 Ml Syringe) 3 ml IVFLUSH QSHIFT [facility] Last Admin: 01/22/23 08:30 Dose: 3 ml Home Medications Medication Instructions Recorded Confirmed Last Taken Type albuterol sulfate 90 mcg/actuation 2 puff inhalation Q4H PRN 01/21/23 01/21/23 Unknown History aerosol inhaler Shortness Of Breath Or Wheezing colestipol 1 gram tablet 2 g PO BID 01/21/23 01/21/23 01/21/23 History fluticasone propionate 220 1 puff inhalation BID 01/21/23 01/21/23 01/21/23 History mcg/actuation HFA aerosol inhaler (Flovent HFA) Physical Exam Vital Signs: Vital Signs: Last Vital Signs Temp 97.8 F 01/22/23 07:36 Pulse 60 01/22/23 07:36 Resp 18 01/22/23 07:36 BP 190/94 H 01/22/23 07:36 Pulse Ox 98 01/22/23 07:36 O2 Del Method Room Air 01/22/23 07:36 BMI result Body Mass Index 26.5 Const: General: comfortable and no acute distress Orientation/consciousness: patient oriented x3 HEENT: Other: Unremarkable Head: Yes normal to inspection Neck: Neck: Yes normal visual inspection Chest: Chest palpation & inspection: normal inspection of the chest Resp: Auscultation: clear to auscultation bilaterally Cardio: Palpation: normal PMI Heart sounds: S1 normal heart sound present, S2 normal heart sound present, no gallops, Murmur heart sound present systolic II/ and at the right sternal border and no rubs GI: Palpation (GI): Soft to palpation Back/Spine/Pelvis: Other: unremarkable Skin: General skin exam: no rashes or lesions noted Neuro: General: patient oriented x3 Extrem: General: Yes normal to inspection Psych: Mental Status: mental status grossly normal Objective Labs and Meds 01/22/23 06:10 01/22/23 06:10 Lab results: Laboratory Results - last 24 hr 01/21/23 01/21/23 01/21/23 02:05 12:18 15:25 WBC 9.8 RBC 5.33 Hgb 14.7 Hct 45.8 MCV 85.9 MCH 27.6 MCHC 32.1 RDW 13.4 Plt Count 290 MPV 10.7 Immature Gran % (Auto) 0.3 Neut % (Auto) 73.8 H Lymph % (Auto) 15.0 L [place] % (Auto) 7.8 Eos % (Auto) 2.0 Baso % (Auto) 1.1 Lymph # (Auto) 1.5 [place] # (Auto) 0.8 Eos # (Auto) 0.2 Baso # (Auto) 0.1 Abs Immat Gran (auto) 0.03 Absolute Neuts (auto) 7.2 Absolute Nucleated RBC 0.000 Nucleated RBC % (auto) 0.0 PT 11.7 INR 1.0 APTT 36.1 Sodium 139 Potassium 4.0 Chloride 104 Carbon Dioxide 26 Anion Gap 13 BUN 14 Creatinine 0.80 Estim Creat Clear Calc 56.5 Estimated GFR > 60 Random Glucose 135 H Calcium 9.7 Magnesium 2.0 Total Bilirubin 0.6 AST 21 ALT 13 Alkaline Phosphatase 88 Troponin I High Sens 48.5 H 213.4 H* D B-Natriuretic Peptide 161 H Total Protein 6.9 Albumin 4.0 Lipase 15 TSH 2.09 Urine Color Yellow Urine Appearance Clear Urine pH 6.5 Ur Specific [place] 1.010 Urine Protein Negative Urine Glucose (UA) Negative Urine Ketones 15 Urine Blood Negative Urine Nitrite Negative Ur Leukocyte Esterase Trace H Urine RBC 0-2 Urine WBC 0-5 Ur Squamous Epith Cells 0-2 Urine Bacteria None Seen Hyaline Casts 0-2 01/22/23 06:10 WBC 6.7 RBC 4.65 Hgb 12.8 Hct 39.6 MCV 85.2 MCH 27.5 MCHC 32.3 RDW 13.4 Plt Count 234 MPV 11.3 Immature Gran % (Auto) 0.1 Neut % (Auto) 61.6 Lymph % (Auto) 24.3 [place] % (Auto) 9.6 Eos % (Auto) 3.1 Baso % (Auto) 1.3 Lymph # (Auto) 1.6 [place] # (Auto) 0.6 Eos # (Auto) 0.2 Baso # (Auto) 0.1 Abs Immat Gran (auto) 0.01 Absolute Neuts (auto) 4.1 Absolute Nucleated RBC 0.000 Nucleated RBC % (auto) 0.0 PT INR APTT Sodium 139 Potassium 3.4 Chloride 104 Carbon Dioxide 28 Anion Gap 10 L BUN 15 Creatinine 0.66 Estim Creat Clear Calc 68.5 Estimated GFR > 60 Random Glucose 106 Calcium 8.9 D Magnesium Total Bilirubin AST ALT Alkaline Phosphatase Troponin I High Sens B-Natriuretic Peptide Total Protein Albumin Lipase TSH Urine Color Urine Appearance Urine pH Ur Specific [place] Urine Protein Urine Glucose (UA) Urine Ketones Urine Blood Urine Nitrite Ur Leukocyte Esterase Urine RBC Urine WBC Ur Squamous Epith Cells Urine Bacteria Hyaline Casts ECG Interpretation: Initial EKG shows atrial fibrillation at 01:42/Min and voltage criteria for LVH and cannot exclude old anterior infarct. Repeat EKG shows sinus rhythm. Telemetry still shows sinus rhythm. Imaging Radiologist's impression: Impressions Chest X-Ray 01/21/23 12:45 IMPRESSION: No acute cardiopulmonary disease. Venous Duplex 01/21/23 15:01 IMPRESSION: 1. No evidence of deep vein thrombosis in the right femoral-popliteal system. 2. Complex right popliteal fossa Hoff's cyst. Assessment and Plan (1) Atrial fibrillation with rapid ventricular response: Status: Acute Currently on diltiazem CD 1 20 mg daily. May continue. Continue Eliquis. (2) Elevated troponin: Status: Acute Likely all from demand. Could have underlying fixed CAD. Do not believe there is acute plaque rupture. She does not have any chest pain. Consider outpatient stress test. Echocardiogram today. (3) Uncontrolled hypertension: Status: Acute Blood pressure is quite high. She states she does not take meds regularly at home. Currently on lisinopril and may need to adjust dose as the pressure is quite high. Discussed about this with Dr. Redding. Time Spent With Patient Time: Total time managing care of this patient today ____ minutes. Procedures Date of Service Date of Service: 01/22/23
--- NOTE | 2023-01-22 11:28 | MHC.CM.PN ---
Pt is medically cleared for D/C home self-care, pts will transport her home.
[2023-01-22 11:44] VITALS: BP 174/81; PULSE 62; RESP 18; TEMP 36.4; O2SAT 97
[2023-01-22 14:29] VITALS: BP 141/70
--- NOTE | 2023-01-22 14:31 | MHC.CM.PN ---
Patient has been medically cleared for dc to home today, self care.
[2023-01-22 15:35] LABS: INTERNATIONAL NORM RATIO 1.4 (0.9-1.1); Prothrombin Time 17.4 SEC (11.1-13.3)
== END 2023-01-22 14:59 | disposition home or self-care (01) ==
LOC: HO.ED 14:43 → HO.EDOVER 15:48 → HO.IMC 16:35
PROVIDERS: Physician Assistant; Admitting Provider Physician Assistant; Emergency Provider Emergency Medicine Emergency Medical Services; Visit Provider Internal Medicine
DX: I48.91 Unspecified atrial fibrillation (principal); R77.8 Other specified abnormalities of plasma proteins; J45.30 Mild persistent asthma, uncomplicated; R06.02 Shortness of breath; R61 Generalized hyperhidrosis; R11.0 Nausea; E78.5 Hyperlipidemia, unspecified; R42 Dizziness and giddiness; J45.909 Unspecified asthma, uncomplicated; M79.89 Other specified soft tissue disorders; M71.21 Synovial cyst of popliteal space [Baker], right knee; Z79.899 Other long term (current) drug therapy
CPT/HCPCS: 36415; 71046; 80048; 80053; 81001; 83690; 83735; 83880; 84443; 84484; 85025; 85610; 85730; 93005; 93306; 93971; 94640; 96372; 96374; 96375; 99222; 99285; J1650; Q9957

== ENCOUNTER 2023-01-21 15:36 | Outpatient (BNV) | payer OTHER, SELFPAY | END 2023-01-22 07:00 | PROVIDERS: Admitting Provider Physician Assistant; Emergency Provider Emergency Medicine Emergency Medical Services; Visit Provider Internal Medicine | DX: I34.0 Nonrheumatic mitral (valve) insufficiency (principal); I48.91 Unspecified atrial fibrillation | CPT/HCPCS: 93306 ==

== ENCOUNTER → 2023-01-21 15:36 | Outpatient (BNV) | payer OTHER, SELFPAY | PROVIDERS: Admitting Provider Physician Assistant; Emergency Provider Emergency Medicine Emergency Medical Services; Visit Provider Physician Assistant | DX: I48.91 Unspecified atrial fibrillation (principal); R77.8 Other specified abnormalities of plasma proteins | CPT/HCPCS: 99223; 99239 ==

== ENCOUNTER → 2023-01-21 15:36 | Outpatient (BNV) | payer OTHER, SELFPAY | PROVIDERS: Admitting Provider Physician Assistant; Emergency Provider Emergency Medicine Emergency Medical Services; Visit Provider Internal Medicine | DX: I48.91 Unspecified atrial fibrillation (principal); R77.8 Other specified abnormalities of plasma proteins; I10 Essential (primary) hypertension | CPT/HCPCS: 99222 ==

== ENCOUNTER 2023-01-27 16:32 | Emergency (ER) | payer OTHER, SELFPAY ==
[2023-01-27] VITALS (7 sets, daily range): BP systolic 180–234; BP diastolic 85–109; PULSE 56–75; RESP 16–18; TEMP 36.8; O2SAT 97–98; BMI 26.2
--- NOTE | 2023-01-27 17:11 | ED_ITS ---
HPI - General Adult General Chief complaint: General Medical Stated complaint: High blood pressure Time Seen by Provider: 01/27/23 17:43 Source: patient Mode of arrival: ambulatory Limitations: no limitations History of Present Illness HPI narrative: Patient with history of hypertension untreated for long time recently admitted last week for new onset AFib discharged 6days ago on lisinopril 30 mg and Cardizem 120 mg daily, for last 6 days comes as blood pressure is still elevated on arrival blood pressure was 234/109 no headache no nausea no vomiting no chest pain or palpitation Related Data Home Medications Medication Instructions Recorded Confirmed albuterol sulfate 90 mcg/actuation 2 puff inhalation Q4H PRN 01/21/23 01/27/23 aerosol inhaler Shortness Of Breath Or Wheezing colestipol 1 gram tablet 2 g PO BID 01/21/23 01/27/23 fluticasone propionate 220 1 puff inhalation BID 01/21/23 01/27/23 mcg/actuation HFA aerosol inhaler (Flovent HFA) Previous Rx's Medication Instructions Recorded apixaban 5 mg tablet (Eliquis) 5 mg PO BID #60 tabs 01/22/23 diltiazem HCl 120 mg 120 mg PO DAILY #30 caps 01/22/23 capsule,extended release 24 hr (Cardizem CD) lisinopril 30 mg tablet (Zestril) 30 mg PO DAILY #30 tabs 01/22/23 Allergies Allergy/AdvReac Type Severity Reaction Status Date / Time Penicillins [PENICILLINS] Allergy Intermediate HIVES Verified 01/21/23 11:49 penicillin V Allergy Unknown Hives Verified 01/21/23 11:49 Review of Systems 2 Review of Systems: Yes all other systems are reviewed and are negative [facility] Past Medical History Medical History Gallstone pancreatitis Asthma Hypertension Surgical History S/P cholecystectomy Family History Family History Mother Heart disease Social History Social History Household Members: Spouse Housing: House Do you presently have visiting nurse or other home services: No Patient Tobacco Use Status: Never used Tobacco Advance Directives: Yes Advance Directives on File: Yes Advance Directives Date on File: 01/23/23 service: No Physical Exam ED Vital Signs: Vital Signs - 24 hr 01/27/23 17:09 01/27/23 17:44 01/27/23 18:36 Temperature 98.3 F Pulse Rate 75 61 74 Respiratory Rate 18 16 Blood Pressure 234/109 H 232/101 H 232/99 H Pulse Oximetry 97 98 Oxygen Delivery Method Room Air Room Air 01/27/23 18:41 01/27/23 18:44 01/27/23 18:48 Temperature Pulse Rate 63 60 60 Respiratory Rate 16 Blood Pressure 206/95 H 200/92 H 182/91 H Pulse Oximetry Oxygen Delivery Method 01/27/23 18:53 Temperature Pulse Rate 56 Respiratory Rate Blood Pressure 180/85 H Pulse Oximetry Oxygen Delivery Method BMI result Body Mass Index 26.2 Appearance: Alert. Oriented X3. No acute distress. Eyes: PERRLA, No Nystagmus ENT: Pharynx normal. Oral Mucosa moist Neck: Normal inspection. Neck supple. CVS: Normal heart rate and rhythm. Pulses normal. Respiratory: No respiratory distress. Equal air entry bilateral, no wheezing/rales/rhonchi Abdomen: Soft and nontender. Bowel sounds are present, no mass palpable, no CVA tenderness Skin: Skin warm and dry. Normal skin color. Normal skin turgor. Extremities: No lower extremity edema. No calf tenderness Neuro: Oriented X 3. No motor deficit. No sensory deficit.No cerebellar signs , cranial nerves II-XII intact Course Course Course Narrative: 77-year-old female who presents emergency department with complaints elevated blood pressure readings at home. She was recently admitted for atrial fibrillation she is currently Eliquis and lisinopril and she has been compliant with medications she has been taking her blood pressure at very high with systolic over 200. She states that she is feeling flushed and lightheaded. Denies any chest pain or shortness of breath. Blood pressure found to be 234/109. Informed charge nurse of level as pt should be brought back to the main ER for management of hypertension. 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 01/27/23 17:31 01/27/23 17:31 Labs: Lab Results 01/27/23 Range/Units 17:31 WBC 7.9 (4.8-10.8) X10*3/uL RBC 5.02 (4.20-5.50) X10*6/uL Hgb 13.6 (12.0-16.0) g/dl Hct 43.3 (37.0-47.0) % MCV 86.3 (80.0-98.0) fL MCH 27.1 (27.0-33.0) pg MCHC 31.4 (31.0-35.0) g/dl RDW 13.5 (11.0-16.0) % Plt Count 278 (160-400) X10*3/uL MPV 10.6 (9.4-12.3) fL Immature Gran % (Auto) 0.3 (0.0-0.4) % Neut % (Auto) 60.2 (45-73) % Lymph % (Auto) 26.3 (20-40) % Castro % (Auto) 8.5 (2-11) % Eos % (Auto) 3.4 (0-4) % Baso % (Auto) 1.3 (0-2) % Lymph # (Auto) 2.1 (1.2-4.9) X10*3/uL Castro # (Auto) 0.7 (0.1-1.2) X10*3/uL Eos # (Auto) 0.3 (0.0-0.4) X10*3/uL Baso # (Auto) 0.1 (0.0-0.2) X10*3/uL Abs Immat Gran (auto) 0.02 (0.00-0.03) X10*3/uL Absolute Neuts (auto) 4.8 (2.0-8.3) x10*3/uL Absolute Nucleated RBC 0.000 (0.0-0.012) X10*3/uL Nucleated RBC % (auto) 0.0 (0.0-0.2) /100WBC PT 16.2 H (11.1-13.3) SEC INR 1.3 H (0.9-1.1) APTT 43.5 H D (26.0-36.4) SEC Sodium 142 (135-145) mmol/L Potassium 4.0 (3.3-5.1) mmol/L Chloride 104 (96-108) mmol/L Carbon Dioxide 28 (22-29) mmol/L Anion Gap 14 (12-20) BUN 17 H (9-16) mg/dL Creatinine 0.72 (0.5-1.4) mg/dL Estim Creat Clear Calc 62.5 Estimated GFR > 60 Random Glucose 108 (60-115) mg/dL Calcium 9.5 D (8.4-10.2) mg/dL Magnesium 2.0 (1.6-2.6) mg/dL Total Bilirubin 0.5 (0.0-1.0) mg/dL Direct Bilirubin 0.2 (0.0-0.5) mg/dL AST 17 (5-31) U/L ALT 13 (0-31) U/L Alkaline Phosphatase 84 (39-117) U/L Troponin I High Sens 8.4 D (<3.5-17.0) ng/L Total Protein 7.0 (6.5-8.0) g/dL Albumin 4.1 (3.5-5.0) g/dL Discharge Plan Discharge Clinical Impression: Uncontrolled hypertension Patient Disposition: Home, Self-Care Instructions: Hypertension (ED) Additional Instructions: Continue taking blood pressure medication Check blood pressure before eating the medicine before going to bed If blood pressure still elevated in the evening take extra dose of lisinopril 30 mg Normal blood pressure shold be less than 135/85 Prescriptions: No Action fluticasone propionate [Flovent HFA] 220 mcg/actuation HFA aerosol inhaler 1 puff inhalation BID albuterol sulfate 90 mcg/actuation HFA aerosol inhaler 2 puff inhalation Q4H PRN (Reason: Shortness Of Breath Or Wheezing) colestipol 1 gram tablet 2 g PO BID Eliquis 5 mg Tablet 5 mg PO BID Qty: 60 0RF diltiazem HCl [Cardizem CD] 120 mg Capsule,Extended Release 24hr 120 mg PO DAILY Qty: 30 0RF Protocol: Hold for SBP/HR < HOLD for SBP < : 90 HOLD for HR < : 60 lisinopril [Zestril] 30 mg tablet 30 mg PO DAILY Qty: 30 0RF
--- NOTE | 2023-01-27 17:15 | ECG_ITS ---
Test Reason : high blood pressure Blood Pressure : / mmHG Vent. Rate : 069 BPM Atrial Rate : 069 BPM P-R Int : 164 ms QRS Dur : 090 ms QT Int : 404 ms P-R-T Axes : 056 017 039 degrees QTc Int : 432 ms Sinus rhythm with Premature atrial complexes Moderate voltage criteria for LVH, may be normal variant ( R in aVL , Sokolow-Vasquez ) Borderline ECG When compared with ECG of 21-JAN-2023 14:14, Premature atrial complexes are now Present Referred By: Lilly Bermeo Electronically Signed By:RUSH MENDOZA
[2023-01-27 17:36] LABS: MANUAL DIFF FLAG NO
[2023-01-27 17:39] LABS: Basophils Absolute Auto 0.1 X10*3/uL (0.0-0.2); Basophils Percent Auto 1.3 % (0-2); Eosinophils Absolute Auto 0.3 X10*3/uL (0.0-0.4); Eosinophils Percent Auto 3.4 % (0-4); Hematocrit 43.3 % (37.0-47.0); Hemoglobin 13.6 g/dl (12.0-16.0); Imm Gran Abs Auto 0.02 X10*3/uL (0.00-0.03); Imm Gran Pct Auto 0.3 % (0.0-0.4); Lymphocytes Absolute Auto 2.1 X10*3/uL (1.2-4.9); Lymphocytes Percent Auto 26.3 % (20-40); Mean Corpuscular HGB Conc 31.4 g/dl (31.0-35.0); Mean Corpuscular Hemoglobin 27.1 pg (27.0-33.0); Mean Corpuscular Volume 86.3 fL (80.0-98.0); Mean Platelet Volume 10.6 fL (9.4-12.3); Monocytes Absolute Auto 0.7 X10*3/uL (0.1-1.2); Monocytes Percent Auto 8.5 % (2-11); Neutrophils Absolute Auto 4.8 x10*3/uL (2.0-8.3); Neutrophils Percent Auto 60.2 % (45-73); Platelet Count 278 X10*3/uL (160-400); Red Blood Count 5.02 X10*6/uL (4.20-5.50); Red Cell Distribution Width 13.5 % (11.0-16.0); White Blood Count 7.9 X10*3/uL (4.8-10.8)
[2023-01-27 17:44] LABS: INTERNATIONAL NORM RATIO 1.3 (0.9-1.1); Prothrombin Time 16.2 SEC (11.1-13.3)
[2023-01-27 17:46] LABS: Partial Thromboplastin Time 43.5 SEC (26.0-36.4)
[2023-01-27 17:53] LABS: Alanine Aminotransferase 13 U/L (0-31); Albumin Level 4.1 g/dL (3.5-5.0); Alkaline Phosphatase 84 U/L (39-117); Anion Gap 14 (12-20); Aspartate Amino Transferase 17 U/L (5-31); Bilirubin Direct 0.2 mg/dL (0.0-0.5); Bilirubin Total 0.5 mg/dL (0.0-1.0); Blood Urea Nitrogen 17 mg/dL (9-16); Calcium 9.5 mg/dL (8.4-10.2); Carbon Dioxide 28 mmol/L (22-29); Chloride 104 mmol/L (96-108); Creatinine Clr Calc Pharmacy 62.5; Estimated Glomerular Filt Rate > 60; Glucose Random 108 mg/dL (60-115); Sodium 142 mmol/L (135-145)
[2023-01-27 18:00] LABS: Troponin-I High Sensitivity 8.4 ng/L (<3.5-17.0)
[2023-01-27] MEDS: Labetalol HCL 100 MG/20 ML VIAL 20 MG IVPUSH (18:35)
--- NOTE | 2023-01-27 19:57 | PHA.MEDREC ---
Pharmacy Consult ? Medication Reconciliation Pharmacy has completed the medication reconciliation. Patient just discharged 01/22 from [facility], used discharge summary for med rec. Rosalva Monreal, FedeD
[2023-01-27] MEDS: lisinopriL 20 MG TABLET PO (20:56)
== END 2023-01-27 21:07 | disposition home or self-care (01) ==
PROVIDERS: Physician Assistant Medical; Emergency Provider Internal Medicine
DX: I10 Essential (primary) hypertension (principal); I48.91 Unspecified atrial fibrillation; Z79.899 Other long term (current) drug therapy; Z79.01 Long term (current) use of anticoagulants
CPT/HCPCS: 36415; 80048; 80076; 83735; 84484; 85025; 85610; 85730; 93005; 96374; 99284; 99285

== ENCOUNTER → 2023-01-29 11:19 | Outpatient (REF) | payer OTHER, SELFPAY ==
--- NOTE | 2023-01-29 11:22 | HM_ITS ---
* Total monitoring time 3 days. * Underlying rhythm is sinus. Average ventricular rate 62/Min. Range 44 to 97/Min. About 52% of the time, rate less than 60/Min. * Frequent supraventricular ectopy with a burden of 2.8%. * Rare ventricular ectopy. * No significant pauses or AV blocks. * No patient markers or events in diary. MTDD
== END ==
LOC: HO.CARD 11:19
PROVIDERS: PCP Nurse Practitioner Family; Visit Provider Internal Medicine
DX: R00.2 Palpitations (principal); I48.91 Unspecified atrial fibrillation
CPT/HCPCS: 93242

== ENCOUNTER 2023-02-19 11:26 | Outpatient (AMB) | payer OTHER, SELFPAY ==
[2023-02-19 11:34] VITALS: BP 180/96; PULSE 72; O2SAT 98; BMI 25.6
--- NOTE | 2023-02-19 11:34 | A.OFFPC_ITS ---
Vital Signs 02/19/23 11:34 02/19/23 12:28 Height 5 ft 4 in Weight 149 lb 0.8 oz BMI 25.6 BP 180/96 H 190/98 H Blood Pressure Location Lt brachial Lt brachial Position Sitting Sitting Pulse 72 Pulse Source Pulse Oximeter Temp Source Skin Pulse Oximetry (%) 98 Oxygen Delivery Method Room Air Intake Visit Reasons: [employer]/ Afib Intake Note: Patient is a new patient here to establish care. pt seen at [facility] for AFIB Spot Remover Required: No Allergies Penicillins [PENICILLINS] Allergy (Intermediate, Verified 02/19/23 12:04) HIVES penicillin V Allergy (Unknown, Verified 02/19/23 12:04) Hives Medication List - Last Reconciled 02/19/23 by ARACELI Meyers albuterol sulfate 90 mcg/actuation 2 puffs inhalation Q4H PRN apixaban (Eliquis) 5 mg PO BID colestipol 2 grams PO BID diltiazem HCl (Cardizem CD) 120 mg See Protocol PO DAILY fluticasone propionate 220 mcg/actuation (Flovent HFA) 1 puff inhalation BID lisinopril (Zestril) 30 mg PO DIRECTED Tobacco use date assessed: 02/19/23 Fall risk assessment: No Falls in past year Last assessed Fall Risk: 02/19/23 Dental Screening Dental Screen Date: 02/19/23 Did you have a dental visit in the last 12 months?: No Did you have a dental problem in the last 6 months where you did not have access to dental care?: No HPI [employer]/ Afib HPI Details Patient is a 77-year-old female who presents today to establish care. Previous PCP about 5 years ago at [facility]. Medical history significant for AFib-will be seeing [facility] this month, uncontrolled hypertension-patient reports systolic blood pressures at home between 190 and 200, asthma, urinary frequency - for the past 4 years - recent urinalysis 01/2023 negative for UTI. Patient reports that she is compliant with her blood pressure medications. Today, she denies shortness of breath, chest pain, palpitations, headache, or vision changes. Patient reports that in the past she was on water pill for high blood pressure although it was stopped due to urinary frequency. Patient reports that 7 years ago she did have pancreatitis and gallbladder was removed and since then she was colestipol excess bile. Patient will be having stress test next week with [facility]. [facility] Medical History (Updated 02/19/23 @ 12:21 by ARACELI Meyers) Gallstone pancreatitis Asthma Hypertension Surgical History (Updated 02/19/23 @ 13:09 by ARACELI Meyers) History of colonoscopy S/P cholecystectomy Family History (Updated 02/19/23 @ 12:16 by ARACELI Meyers) Mother Heart disease Father No problems noted. Social History Household Members: Spouse Housing: House Do you presently have visiting nurse or other home services: No Patient Tobacco Use Status: Never used Tobacco Advance Directives Date on File: 01/23/23 service: No Cognitive needs: No Hearing needs: No Vision needs: No Questionnaire PHQ-9 Over the last 2 weeks, how often have you been bothered by any of the following problems? 1. Little interest or pleasure in doing things: not at all 2. Feeling down, depressed, or hopeless: not at all 3. Trouble falling or staying asleep, or sleeping too much: not at all 4. Feeling tired or having little energy: not at all 5. Poor appetite or overeating: not at all 6. Feeling bad about yourself - or that you are a failure or have let yourself or your family down: not at all 7. Trouble concentrating on things, such as reading the newspaper or watching television: not at all 8. Moving or speaking so slowly that other people could have noticed. Or the opposite - being so fidgety or restless that you have been moving around a lot more than usual: not at all 9. Thoughts that you would be better off or of hurting yourself in some way: not at all Total score: 0 Depression Screening Interpretation: Negative Depression Screening Done: Yes 47529 - PHQ-9 Billing: Yes Source: Developed by Drs. Shade Ramirez, Damaris Maxwell, Andres Nix and colleagues, with an educational gaston from [employer]. Thrive Questionnaire Date Thrive assessed: 01/22/23 AUDIT C Alcohol Use Questionnaire (AUDIT-C) 1. How often do you have a drink containing alcohol?: Never 2. How many drinks containing alcohol do you have on a typical day when you are drinking?: 1 or 2 3. How often do you have six or more drinks on one occasion?: Never Total Score: 0 Score Reviewed/Action Taken: No CELESTINE-7 AMB Questionnaire CELESTINE-7 Date CELESTINE - 7 assessed: 02/19/23 Feeling nervous, anxious, or on edge: 0 = Not at all Not being able to stop or control worryin = Not at all Worrying too much about different things: 0 = Not at all Trouble relaxin = Not at all Being so restless that it is hard to sit still: 0 = Not at all Becoming easily annoyed or irritable: 0 = Not at all Feeling afraid as if something awful might happen: 0 = Not at all Total CELESTINE-7 score (0-4 normal; 5-9 mild; 10-14 moderate; 15-21 severe): 0 Source: Developed by Drs. Shade Ramirez, Damaris Maxwell, Andres Nix and colleagues, with an educational gaston from [employer]. CELESTINE-7 Assessment Billing CELESTINE-7 Assessment Tool: CELESTINE-7 Assessment 20199 Review of Systems Const Denies body aches, Denies chills, Denies fever(s) and Denies headache(s) Eyes Denies change in vision ENT Denies dizziness, Denies otalgia, Denies headache(s), Denies nasal discharge, Denies sinus pain and Denies sore throat Card Denies chest pain, Denies edema, Denies lightheadedness and Denies dyspnea Resp Denies cough, Denies dyspnea and Denies wheezing GI Denies abdominal pain, Denies constipation, Denies diarrhea, Denies nausea and Denies vomiting Denies hematuria, Denies dysuria and Denies flank pain Musc Denies myalgias Skin/Breast Denies rash Neuro Denies dizziness and Denies headache(s) Aller/Immun Denies wheezing Physical exam (Primary Care) Vital Signs: Last Vital Signs Pulse 72 02/19/23 11:34 BP 190/98 H 02/19/23 12:28 Pulse Ox 98 02/19/23 11:34 Oxygen Delivery Method Room Air 02/19/23 11:34 BMI result Body Mass Index 25.6 Tobacco/Smoking Status: Tobacco use Status Tobacco use date assessed 02/19/23 02/19/23 11:44 Patient Tobacco Use Status Never used Tobacco 02/19/23 11:44 PHQ-9: PHQ-9 Score PHQ-9: Total score 0 02/19/23 12:16 Depression Screening Interpretation: Negative Thrive Assessment: Date of Thrive Assessment Date Thrive assessed 01/22/23 02/19/23 11:44 Const General: cooperative and no acute distress Orientation/consciousness: patient oriented x3 HENMT Head: Yes normocephalic and Yes atraumatic Ears: TM's normal bilaterally Face and sinus: Yes sinuses nontender Mouth: oropharynx normal and moist mucous membranes Throat: Yes posterior oropharynx normal Eyes General: appearance normal, both eyes and all related structures Pupils: Equal, round and reactive pupils present EOM: EOMs intact bilaterally Neck Neck: Yes normal visual inspection, Yes full ROM and Yes no lymphadenopathy Thyroid: Thyroid normal Resp Effort & Inspection: normal respiratory effort and able to speak in complete sentences Auscultation: clear to auscultation bilaterally, no crackles, no rales, no rhonchi and no wheezes Cardio Rate: regular rate Rhythm: regular rhythm Heart sounds: S1 normal heart sound present, S2 normal heart sound present and no murmurs Peripheral pulses: radial pulses present on the right GI Palpation (GI): Soft to palpation, not firm, nontender, no guarding, not rigid and no hepatosplenomegaly Auscultation: normal bowel sounds General: No CVA tenderness Back/Spine/Pelvis Back: No CVA tenderness Skin General skin exam: no rashes or lesions noted Neuro General: patient oriented x3 Cranial nerves: Yes Equal, round and reactive pupils present Gait exam (Neuro): Normal gait present Extrem Other: Very mild trace edema to bilateral lower extremity General: Yes full ROM Assessment and Plan Assessment & Plan (1) Urinary frequency: Code(s): R35.0 - Frequency of micturition Plan: Urology referral for an evaluation and treatment (2) Screening for colon cancer: Code(s): Z12.11 - Encounter for screening for malignant neoplasm of colon Plan: Patient is due for colonoscopy Will refer (3) Asthma: Code(s): J45.909 - Unspecified asthma, uncomplicated Plan: Stable Continue Flovent inhaler b.i.d. and albuterol inhaler p.r.n. (4) Encounter to establish care: Code(s): Z76.89 - Persons encountering health services in other specified circumstances (5) Uncontrolled hypertension: Code(s): I10 - Essential (primary) hypertension Plan: Goal BP equal or less than 140/90, blood pressure high in the office today, patient denies acute symptoms Patient is to continue diltiazem, lisinopril Start hydrochlorothiazide 12.5 mg daily-educated about possible adverse reactions and when to notify provider Patient is to continue monitor blood pressures at home, patient reports that she will get a new blood pressure monitor Patient is to call office next week with her blood pressure readings Signs and symptoms reviewed when to notify provider or go to the emergency department Reinforced low-sodium diet Patient has an upcoming appointment with [facility] this month (6) New onset atrial fibrillation: Code(s): I48.91 - Unspecified atrial fibrillation Plan: Continue diltiazem and Eliquis Keep appointment with [facility] as scheduled Plan Follow-up in 2 months for PE and labs Orders: Orders Vitamin D 25-OH Total Today I10 - Essential (primary) hypertension Lipid Panel Today I10 - Essential (primary) hypertension Microalbumin, Random (w Creat) Today I10 - Essential (primary) hypertension Vitamin B12 and Folate Today I10 - Essential (primary) hypertension Basic Metabolic Panel Fasting Today I10 - Essential (primary) hypertension Referrals Gastroenterology Referral Z12.11 - Encounter for screening for malignant neoplasm of colon Urology Referral R35.0 - Frequency of micturition Medications: New albuterol sulfate 90 mcg/actuation 2 puffs inhalation Q4H PRN 8.5 grams 1RF Shortness Of Breath Or Wheezing J45.909 - Unspecified asthma, uncomplicated hydrochlorothiazide 12.5 mg PO DAILY 30 tabs 0RF I10 - Essential (primary) hypertension fluticasone propionate 220 mcg/actuation (Flovent HFA) 1 puff inhalation BID 12 grams 3RF J45.909 - Unspecified asthma, uncomplicated Changed From lisinopril (Zestril) Take 1 tablet every AM, if BP remains elevated may take an additional tablet in the PM. 30 mg PO DIRECTED I10 - Essential (primary) hypertension To lisinopril (Zestril) 30 mg PO Q12H 60 tabs 2RF I10 - Essential (primary) hypertension Refilled apixaban (Eliquis) 5 mg PO BID 60 tabs 0RF diltiazem HCl (Cardizem CD) 120 mg See Protocol PO DAILY 30 caps 0RF Coding Level of Care Code New Pt Level 4 (81150) Diagnoses Urinary frequency R35.0 Screening for colon cancer Z12.11 Asthma J45.909 Encounter to establish care Z76.89 Uncontrolled hypertension I10 New onset atrial fibrillation I48.91 Additional Codes CELESTINE-7 Assessment Billing - CELESTINE-7 Assessment Tool: CELESTINE-7 Assessment [id number] ([id number])
[2023-02-19 12:28] VITALS: BP 190/98
== END 2023-02-19 12:43 | disposition home or self-care (01) ==
PROVIDERS: PCP Nurse Practitioner Family; Visit Provider Nurse Practitioner Family
DX: R35.0 Frequency of micturition (principal); I48.91 Unspecified atrial fibrillation; J45.909 Unspecified asthma, uncomplicated; I10 Essential (primary) hypertension
CPT/HCPCS: 99204

== ENCOUNTER → 2023-02-23 07:52 | Outpatient (REF) | payer OTHER, SELFPAY | LOC: HO.CARD 07:52 | PROVIDERS: PCP Nurse Practitioner Family; Visit Provider Internal Medicine | DX: Z13.89 Encounter for screening for other disorder (principal) ==

== ENCOUNTER 2023-03-06 12:57 | Outpatient (AMB) | payer OTHER, SELFPAY ==
[2023-03-06 13:05] VITALS: BP 160/82; PULSE 73; BMI 25.4
--- NOTE | 2023-03-06 13:05 | MHC.OFFVIS ---
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 Allergies Penicillins [PENICILLINS] Allergy (Intermediate, Verified 03/06/23 13:08) HIVES penicillin V Allergy (Unknown, Verified 03/06/23 13:08) Hives Medication List - Last Reconciled 03/06/23 by Vee Brown, DIRECTOR CORPORATE SALES-C albuterol sulfate 90 mcg/actuation 2 puffs inhalation Q4H PRN apixaban (Eliquis) 5 mg PO BID colestipol 2 grams PO BID diltiazem HCl (Cardizem CD) 120 mg See Protocol PO DAILY fluticasone propionate 220 mcg/actuation (Flovent HFA) 1 puff inhalation BID hydrochlorothiazide 12.5 mg PO DAILY lisinopril 40 mg PO DAILY 30 days HPI f/up after testing HPI Details Ruby is a 77-year-old female with past medical history of hypertension, asthma and newer finding atrial fibrillation. Last month she was admitted to [facility] [place] with report of heart palpitations and found to have AFib, RVR. She was treated with rate slowing medications and converted back to sinus rhythm. Her troponin was mildly elevated which was felt to be related to demand. She was started on the appropriate med management. She underwent an outpatient Holter monitor and now presents for follow-up. Today she reports that when she had the atrial fibrillation she could easily tell the difference in her heartbeat. She noticed fluttering in her chest and did not feel like her normal self. She felt weak and sweaty. She has not had any recurrent episodes like that since her hospital discharge. She denies any chest discomfort at rest or with activity. No shortness of breath, presyncope, syncope, PND, orthopnea or edema. No bleeding issues reported. Taking meds as directed. Reports that she is very active throughout the day and does lawn work including mowing which she tolerates well. [facility] Medical History Gallstone pancreatitis Asthma Hypertension Surgical History History of colonoscopy S/P cholecystectomy Family History Mother Heart disease Father No problems noted. Social History Household Members: Spouse Housing: House Do you presently have visiting nurse or other home services: No Patient Tobacco Use Status: Never used Tobacco Advance Directives Date on File: 01/23/23 service: No Cognitive needs: No Hearing needs: No Vision needs: No Review of Systems Const All systems reviewed & are unremarkable except as noted in HPI and below ENT Denies dizziness Card Denies chest pain, Denies chest pain at rest, Denies chest pain with activity, Denies rapid heart rate, Denies pedal edema, Denies edema, Denies leg edema, Denies lightheadedness, Denies palpitations, Denies dyspnea, Denies dyspnea on exertion and Denies orthopnea Resp Denies cough, Denies dyspnea and Denies dyspnea on exertion GI Denies hematochezia and Denies change in stool character Musc Denies abnormal gait, Denies limited range of motion, Denies muscle cramps, Denies muscle weakness, Denies numbness, Denies radiating pain into limb, Denies stiffness and Denies tingling Neuro Denies abnormal gait, Denies dizziness, Denies numbness and Denies tingling Endo Denies palpitations Physical Exam Vital Signs: Last Vital Signs Pulse 73 03/06/23 13:05 BP 160/82 H 03/06/23 13:05 BMI result Body Mass Index 25.4 Const General: cooperative, healthy appearing, comfortable and no acute distress Orientation/consciousness: patient oriented x3 Neck Neck: Yes normal visual inspection Resp Effort & Inspection: normal respiratory effort Auscultation: clear to auscultation bilaterally, no crackles, no rales, no rhonchi and no wheezes Cardio Jugular venous distension: no JVD Rate: regular rate Rhythm: regular rhythm Heart sounds: S1 normal heart sound present, S2 normal heart sound present, no murmurs and no rubs Neuro General: patient oriented x3 Extrem General: Yes normal to inspection Psych Appearance: grossly normal Mental Status: mental status grossly normal Speech and movement: Normal speech and movement present Assessment & Plan Assessment & Plan (1) New onset atrial fibrillation: Code(s): I48.91 - Unspecified atrial fibrillation Plan: [facility] [place] admission last month with report of heart palpitations and finding of new onset atrial fibrillation with rapid ventricular response. She was treated for rate slowing medications and converted to normal sinus rhythm. Her troponin was elevated up to 213 which was thought to be related to demand from AFib RVR. An echocardiogram done 01/22/2023 showed EF 67%, left atrium mildly dilated, mild pulmonary hypertension, dilated ascending aorta 3.9 cm a Holter monitor was done on 01/29/2023 for 3 days showing sinus rhythm with average heart rate 62, heart rate range 44 to 97, 52% of the time heart rate less than 60, supraventricular ectopy 2.8% of time. Today she reports she has been feeling well since her hospital discharge. She continues on diltiazem for heart rate control. She is on Eliquis for anticoagulation. No bleeding issues reported. Labs done 01/27/2023 showed creatinine 0.72. With her new finding of atrial fibrillation will order a nuclear stress test to evaluate for any ischemia. She does report having an issue with her right ankle but would like to try exercising on the treadmill. If unable to tolerate exercise or if her blood pressure is elevated on that day then change to pharmacological nuclear stress test. Reviewed with patient she is agreeable to this plan. Continue same medications. Cardiology follow-up in 3 months, sooner if needed (2) Uncontrolled hypertension: Code(s): I10 - Essential (primary) hypertension Plan: History of hypertension. She tells me her blood pressure is always elevated. Recently saw PCP and blood pressure was elevated. Her lisinopril dose was increased to 40 mg daily earlier this week. She continues on hydrochlorothiazide 12.5 mg daily as well as diltiazem 120 mg daily. She monitors her blood pressure at home. Instructed to call PCP office if her systolic blood pressure continues to run greater than 150 in the next 1-2 weeks. At that time additional antihypertensive may be required. She does not want increase hydrochlorothiazide dose due to very frequent urination that she already has. Unable to further titrate diltiazem as she has sinus bradycardia. Consider addition of hydralazine if needed. Medications: Refilled lisinopril 40 mg PO DAILY 30 days 30 tabs 5RF I10 - Essential (primary) hypertension Coding Level of Care Code Est Pt Level 4 (06131) Diagnoses New onset atrial fibrillation I48.91 Uncontrolled hypertension I10 Time Spent (min) 28
== END 2023-03-06 14:41 | disposition home or self-care (01) ==
PROVIDERS: Visit Provider Nurse Practitioner Family
DX: I48.91 Unspecified atrial fibrillation (principal); I10 Essential (primary) hypertension
CPT/HCPCS: 99214

== ENCOUNTER → 2023-03-06 12:57 | Outpatient (BNVA) | payer OTHER, SELFPAY | PROVIDERS: Visit Provider Nurse Practitioner Family | DX: I10 Essential (primary) hypertension (principal); I48.91 Unspecified atrial fibrillation | CPT/HCPCS: 99212 ==

== ENCOUNTER → 2023-03-18 14:41 | Outpatient (BNVA) | payer OTHER, SELFPAY | PROVIDERS: PCP Nurse Practitioner Family; Visit Provider Nurse Practitioner ==

== ENCOUNTER 2023-04-09 11:10 | Outpatient (AMB) | payer OTHER, SELFPAY ==
--- NOTE | 2023-04-09 11:13 | MHC.OFFVIS ---
Intake Vital Signs 04/09/23 11:19 04/09/23 11:46 Height 5 ft 4 in Weight 149 lb 14.629 oz BMI 25.7 BP 221/105 H 232/105 H Blood Pressure Location Lt brachial Lt brachial Position Sitting Sitting Pulse 81 92 Pulse Source Auscultation Intake Visit Reasons: Colonoscopy Screening Intake Note: Ruby presents in the office as a colonoscopy screening. CC: She had her gall bladder removed 7 years ago. She states that when she had it out finally she tried every diet to stop her diarrhea. She also had a colonoscopy here 6-8 years ago. She was told that she had excess bile and was put on the colestipol. Her diarrhea is under control when she watches what she eats. 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 Allergies Penicillins [PENICILLINS] Allergy (Intermediate, Verified 04/09/23 11:20) HIVES penicillin V Allergy (Unknown, Verified 04/09/23 11:20) Hives Medication List - Last Reconciled 04/09/23 by Lona Walters PA-C albuterol sulfate 90 mcg/actuation 2 puffs inhalation Q4H PRN apixaban (Eliquis) 5 mg PO BID colestipol 2 grams PO BID diltiazem HCl (Cardizem CD) 120 mg See Protocol PO DAILY fluticasone propionate 220 mcg/actuation (Flovent HFA) 1 puff inhalation BID hydrochlorothiazide 12.5 mg PO DAILY lisinopril 40 mg PO DAILY 30 days HPI HPI Comments History of Present Illness Details A77 y/o female newly diagnosed with AFib referred for 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-she is hypertensive- she says she takes her medications as prescribed as well as has taken her medications for the day She is asymptomatic, (facial flushing) she says she cannot go to ED- she cares for her - Recheck blood pressure increased she was to have cardiac stress test- unable to have due to BP she says she has had htn for years- never managed No etoh No tob appetite good She is having in urinary frequency however she is awaiting visit with Urology, tomorrow No headaches, dizziness, blurred vision, confusion, shortness of breath or chest pain No nausea, vomiting, hematemesis, hematochezia, fever or chills PFSH Medical History (Updated 04/09/23 @ 13:05 by Lona Walters PA-C) Gallstone pancreatitis Asthma Hypertension Surgical History History of colonoscopy S/P cholecystectomy Family History Mother Heart disease Father No problems noted. Social History Household Members: Spouse Housing: House Do you presently have visiting nurse or other home services: No Patient Tobacco Use Status: Never used Tobacco Advance Directives Date on File: 01/23/23 service: No Cognitive needs: No Hearing needs: No Vision needs: No Review of Systems Const All systems reviewed & are unremarkable except as noted in HPI and below Card Denies chest pain, Denies chest pain at rest, Denies rapid heart rate, Denies dyspnea and Denies dyspnea on exertion Resp Denies dyspnea and Denies dyspnea on exertion GI Denies abdominal pain, Denies bloating, Denies hematochezia, Denies change in bowel habits, Denies change in stool character, Denies constipation, Denies diarrhea, Denies nausea and Denies vomiting Musc Denies back pain Psych Reports anxiety and Denies depression Physical Exam Vital Signs: Last Vital Signs Pulse 92 04/09/23 11:46 BP 232/105 H 04/09/23 11:46 BMI result Body Mass Index 25.7 Const General: cooperative and no acute distress Orientation/consciousness: patient oriented x3 Limitations: no limitations Eyes Sclerae: sclerae normal Resp Effort & Inspection: normal respiratory effort and able to speak in complete sentences Auscultation: clear to auscultation bilaterally, no rales, no rhonchi and no wheezes Cardio Rate: regular rate Rhythm: regular rhythm Heart sounds: Murmur heart sound present GI Palpation (GI): Soft to palpation and nontender Auscultation: normal bowel sounds Skin General skin exam: erythema (facial flushing) Neuro General: patient oriented x3 Extrem General: Yes full ROM Psych Mental Status: mental status grossly normal Speech and movement: Clear speech present Affect: Anxious affect present Attitude: cooperative Thought process: Normal thought process present Thought content: Normal thought content present Assessment & Plan Assessment & Plan (1) Atrial fibrillation with rapid ventricular response: Comment: HTN- laisha BP up- reg rate-worrisome, Did she go to ED as new diagnosis of AFib ETC, patient declined consulted with cardiology-Jose Eduardo- RN- saw pt Consulted with AMELIA Baxter- Cardiology very helpful, supportive, appreciated Code(s): I48.91 - Unspecified atrial fibrillation Plan: Discuss with Cardiology, expertise will serve her well (2) Poor historian: Comment: no healthcare for years-somewhat anxious Code(s): Z78.9 - Other specified health status (3) Encounter for 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: Comment: Very pleasant 77-year-old female referred for 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, 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 Code(s): Z12.11 - Encounter for screening for malignant neoplasm of colon Plan: Hold off on colonoscopy for now will discuss when time appropriate Plan Follow-up with Cardiology per their recommendation She was see Cardiology back in May Follow-up back with GI to discuss colonoscopy when time appropriate after May Patient Instructions: Follow-up with Cardiology per their recommendation She was see Cardiology back in May Follow-up back with GI to discuss colonoscopy when time appropriate after May Coding Level of Care Code New Pt Level 4 (85965) Diagnoses Atrial fibrillation with rapid ventricular response I48.91 Poor historian Z78.9 Encounter for 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 Z12.11 Time Spent (min) 60
[2023-04-09 11:19] VITALS: BP 221/105; PULSE 81; BMI 25.7
[2023-04-09 11:46] VITALS: BP 232/105; PULSE 92
== END 2023-04-09 13:54 | disposition home or self-care (01) ==
PROVIDERS: PCP Nurse Practitioner Family; Visit Provider Physician Assistant
DX: I48.91 Unspecified atrial fibrillation (principal); Z78.9 Other specified health status; Z12.11 Encounter for screening for malignant neoplasm of colon
CPT/HCPCS: 99204; 99214

== ENCOUNTER → 2023-04-09 11:10 | Outpatient (BNVA) | payer OTHER, SELFPAY | PROVIDERS: PCP Nurse Practitioner Family; Visit Provider Physician Assistant | DX: Z12.11 Encounter for screening for malignant neoplasm of colon (principal); K85.10 Biliary acute pancreatitis without necrosis or infection; I48.91 Unspecified atrial fibrillation; Z90.49 Acquired absence of other specified parts of digestive tract; Z78.9 Other specified health status | CPT/HCPCS: 99202 ==

== ENCOUNTER 2023-04-10 08:38 | Outpatient (AMB) | payer OTHER, SELFPAY ==
--- NOTE | 2023-04-10 08:42 | A.OFFVIS_ITS ---
Intake Intake Visit Reasons: Frequency of micturition Intake Note: NEW Patient presents today to established treatment for Frequency of Micturition: Meds- None Allergies to Antibiotic- Penicillin Blood Thinner- Eliquis Post Void Residual: 0 mL Clinical Trials Nurse Required: No Accompanied by: Self / Same As Patient Allergies penicillin V Allergy (Unknown, Verified 04/23/23 11:41) Hives Medication List - Last Reconciled 04/10/23 by Luly John MD albuterol sulfate 90 mcg/actuation 2 puffs inhalation Q4H PRN apixaban (Eliquis) 5 mg PO BID colestipol 2 grams PO BID diltiazem HCl 180 mg PO DAILY fluticasone propionate 220 mcg/actuation (Flovent HFA) 1 puff inhalation BID hydrochlorothiazide 12.5 mg PO DAILY lisinopril 40 mg PO DAILY 30 days HPI HPI Comments History of Present Illness Details Ruby is a 77-year-old female who presents today to the office for a follow-up. 04/10/2023? She presents today for an evaluation of frequency of micturition. Patient has a past medical history significant for gall stones, pancreatitis, asthma and hypertension. She states that she was referred to the urology office by her PCP due to complaints of urinary frequency. Patient also noted that she is feeling a bulge out when she showers and wipes after urination. 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 She reports that she is going to bathroom every hour during the day and getting up 5-7 times at night to urinate. Patient also notes on and off urinary lekage. She is on HCTZ. Patient states that she has had 3 vaginal deliveries. Examination: Grade III cystocele noted. In review of medications, she is on HCTZ which is a diuretic and it may be contributing to her urinary symptoms. Evaluation today?UA?Leukocytes: negative; blood: negative. catheterized urine was 80 mL. Plan:? Gemtesa 75 mg was ordered. Cystocele, currently emptying bladder adequately, will monitor Ordered kidney bladder US. Follow-up in 4 weeks. [facility] Medical History (Updated 05/10/23 @ 14:59 by Luly John MD) Encounter to establish care Hx of cancer of uterus Gallstone pancreatitis Asthma Hypertension Surgical History Hx of hysterectomy History of colonoscopy S/P cholecystectomy Family History Mother Heart disease Father No problems noted. Social History Household Members: Spouse Housing: House Do you presently have visiting nurse or other home services: No Patient Tobacco Use Status: Never used Tobacco Advance Directives Date on File: 01/23/23 service: No Cognitive needs: No Hearing needs: No Vision needs: No Review of Systems Const All systems reviewed & are unremarkable except as noted in HPI and below Reports no additional complaints Eyes Reports no additional complaints ENT Reports no additional complaints Card Denies dyspnea Resp Denies cough and Denies dyspnea GI Reports no additional complaints Reports no additional complaints Musc Reports no additional complaints Skin/Breast Denies rash and Denies unusual bruising Neuro Reports no additional complaints Psych Reports no additional complaints Endo Reports no additional complaints Olvin/Lymph Reports no additional complaints Aller/Immun Reports no additional complaints Physical Exam Const General: cooperative, healthy appearing and no acute distress Orientation/consciousness: patient oriented x3 HEENT Head: Yes normal to inspection, Yes normocephalic and Yes atraumatic Eyes Conjunctivae: conjunctivae normal Neck Neck: Yes normal visual inspection and Yes trachea midline Chest Chest palpation & inspection: normal inspection of the chest Resp Effort & Inspection: normal respiratory effort Cardio Rate: regular rate GI Inspection: Yes normal to inspection Palpation (GI): Soft to palpation Other: cystocele General: No no CVA tenderness External Female Exam: normal external appearance Speculum Exam - Vagina: vagina atrophic Back/Spine/Pelvis Back: No no CVA tenderness Skin General skin exam: no rashes or lesions noted Neuro General: patient oriented x3 Extrem General: No edema Psych Appearance: grossly normal Results AMB Urinalysis, Automated UA Leukoctes 0 Jeanie/uL Last Edit by PHYLICIA Hurtado on 04/10/23 09:13 UA Nitrite Negative Last Edit by Ghazal Morgan A on 04/10/23 09:13 UA Urobilinogen 0.2 mg/dL Last Edit by Ghazal Morgan A on 04/10/23 09:1 3 UA Protein 0 mg/dL Last Edit by Ghazal Morgan A on 04/10/23 09:13 UA pH 6.0 Last Edit by Ghazal Morgan A on 04/10/23 09:13 UA Blood 0 Jose/uL Last Edit by Ghazal Morgan A on 04/10/23 09:13 UA Specific [place] 1.020 Last Edit by PHYLICIA Hurtado on 04/10/23 09: 13 UA Ketone Negative Last Edit by Ghazal Morgan A on 04/10/23 09:13 UA Bilirubin 0 mg/dL Last Edit by Ghazal Morgan Braxton on 04/10/23 09:13 UA Glucose 0 mg/dL Last Edit by Ghazal Morgan A on 04/10/23 09:13 Results Reviewed Results Reviewed: Laboratory Last Values Urine pH (Auto) 6.0 04/10/23 08:52 Specific [place] (Auto) 1.020 04/10/23 08:52 Urine Protein (Auto) 0 mg/dL 04/10/23 08:52 Glucose (UA)(Auto) 0 mg/dL 04/10/23 08:52 Urine Ketones (Auto) Negative 04/10/23 08:52 Urine Blood (Auto) 0 Jose/uL 04/10/23 08:52 Urine Nitrite (Auto) Negative 04/10/23 08:52 Urine Bilirubin (Auto) 0 mg/dL 04/10/23 08:52 Urine Urobilinogen (Auto) 0.2 mg/dL 04/10/23 08:52 Leukocyte Esterase (Auto) 0 Jeanie/uL 04/10/23 08:52 Assessment & Plan Assessment & Plan (1) Urinary frequency: Code(s): R35.0 - Frequency of micturition (2) Vaginal atrophy: Code(s): N95.2 - Postmenopausal atrophic vaginitis (3) Female cystocele: Code(s): N81.10 - Cystocele, unspecified Plan Gemtesa 75 mg was ordered. Cystocele, currently emptying bladder adequately, will monitor Ordered kidney bladder US. Follow-up in 4 weeks. Orders: Orders AMB Urinalysis Automated 04/10/23 Z13.9 - Encounter for screening, unspecified AMB Post Void Residual by ultrasound 04/10/23 N39.8 - Other specified disorders of urinary system Medications: New vibegron (Gemtesa) 75 mg PO DAILY 90 tabs 2RF Patient Instructions: The patient had an opportunity to ask questions regarding treatment plan. All questions were answered. Imaging, Laboratory studies and physical exam results were discussed and reviewed in detail. No major barriers to understanding were identified. The patient expressed understanding and agreement with the above treatment plan.? ? ? The patient is aware they should contact our office by phone for worsening of their current condition or the appearance of new symptoms. Compliance is encouraged with any medications and followup testing that is ordered.? ? ? It is a privilege to be allowed the opportunity to participate in the urologic care of your patient. If you have any questions or concerns regarding treatment for the above conditions please do not hesitate to contact me. The office telephone contact is [phone].? ? ? This note is constructed in part using voice recognition software. 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 ? ? Yours sincerely,? ? ? Luly John MD? ? Coding Level of Care Code New Pt Level 4 (49678) Diagnoses Urinary frequency R35.0 Vaginal atrophy N95.2 Female cystocele N81.10 CPT Codes Bladder/Catheter Procedure - CPT: 35091-Hrvebs Bladder Catheter ([id number]) Bladder/Catheter Procedure Details: Under sterile technique a 14 Tong[place] catheter was passed transurethrally, 80 mL urine drained [id number] Bladder Catheter Procedure code (CPT) selection complete
== END 2023-04-10 10:12 | disposition home or self-care (01) ==
PROVIDERS: PCP Nurse Practitioner Family; Visit Provider Urology
DX: R35.0 Frequency of micturition (principal); N95.2 Postmenopausal atrophic vaginitis; N81.10 Cystocele, unspecified
CPT/HCPCS: 51701; 99204; 99214

== ENCOUNTER → 2023-04-10 08:38 | Outpatient (BNVA) | payer OTHER, SELFPAY | PROVIDERS: PCP Nurse Practitioner Family; Visit Provider Urology | DX: R35.0 Frequency of micturition (principal); N95.2 Postmenopausal atrophic vaginitis; N81.10 Cystocele, unspecified | CPT/HCPCS: 51701; 81003; 99202 ==

== ENCOUNTER 2023-04-23 10:49 | Outpatient (AMB) | payer OTHER, SELFPAY ==
[2023-04-23 11:05] VITALS: BP 182/90; PULSE 71; O2SAT 99; BMI 25.6
--- NOTE | 2023-04-23 11:05 | MHC.PC.OV ---
Vital Signs 04/23/23 11:05 04/23/23 11:56 Height 5 ft 4 in Weight 149 lb BMI 25.6 BP 182/90 H 182/100 H Blood Pressure Location Lt brachial Lt brachial Position Sitting Sitting Pulse 71 Pulse Source Pulse Oximeter Pulse Oximetry (%) 99 Oxygen Delivery Method Room Air Intake Visit Reasons: Annual Exam Intake Note: Patient is here today for a physical. 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 Allergies penicillin V Allergy (Unknown, Verified 04/23/23 11:41) Hives Medication List - Last Reconciled 04/23/23 by ARACELI Meyers albuterol sulfate 90 mcg/actuation 2 puffs inhalation Q4H PRN apixaban (Eliquis) 5 mg PO BID colestipol 2 grams PO BID diltiazem HCl 180 mg PO DAILY fluticasone propionate 220 mcg/actuation (Flovent HFA) 1 puff inhalation BID hydrochlorothiazide 12.5 mg PO DAILY lisinopril 40 mg PO DAILY 30 days mirabegron ER (Myrbetriq) 50 mg PO DAILY 90 days Tobacco use date assessed: 04/23/23 Fall risk assessment: No Falls in past year Last assessed Fall Risk: 04/23/23 Dental Screening Dental Screen Date: 04/23/23 Did you have a dental visit in the last 12 months?: No Did you have a dental problem in the last 6 months where you did not have access to dental care?: No HPI Annual Exam HPI Details Patient is a 77-year-old female who presents today for physical exam. Medical history significant for atrial fibrillation with rapid ventricular response - followed by [facility], uncontrolled hypertension, asthma, urinary frequency-followed by [facility]. Patient reports compliance with medications and denies side effects. Reports blood pressure at home couple days ago 162/76. Today we discussed patient's need for mammogram and bone density screening. Patient was encouraged to complete her fasting blood work. Patient saw GI for colonoscopy consult, follow-up with GI after cardiology consult due to high blood pressures. Eye exam up-to-date. Patient denies shortness of breath or chest pain, no headache. [facility] Medical History (Updated 04/23/23 @ 12:14 by ARACELI Meyers) Encounter to establish care Hx of cancer of uterus Gallstone pancreatitis Asthma Hypertension Surgical History Hx of hysterectomy History of colonoscopy S/P cholecystectomy Family History Mother Heart disease Father No problems noted. Social History Household Members: Spouse Housing: House Do you presently have visiting nurse or other home services: No Patient Tobacco Use Status: Never used Tobacco Advance Directives Date on File: 01/23/23 service: No Cognitive needs: No Hearing needs: No Vision needs: No Questionnaire PHQ-9 Over the last 2 weeks, how often have you been bothered by any of the following problems? 1. Little interest or pleasure in doing things: not at all 2. Feeling down, depressed, or hopeless: not at all 3. Trouble falling or staying asleep, or sleeping too much: not at all 4. Feeling tired or having little energy: not at all 5. Poor appetite or overeating: not at all 6. Feeling bad about yourself - or that you are a failure or have let yourself or your family down: not at all 7. Trouble concentrating on things, such as reading the newspaper or watching television: not at all 8. Moving or speaking so slowly that other people could have noticed. Or the opposite - being so fidgety or restless that you have been moving around a lot more than usual: not at all 9. Thoughts that you would be better off or of hurting yourself in some way: not at all Total score: 0 Depression Screening Interpretation: Negative Depression Screening Done: Yes 17206 - PHQ-9 Billing: Yes Source: Developed by Drs. Shade Ramirez, Damaris Maxwell, Andres Nix and colleagues, with an educational gaston from [employer]. Thrive Questionnaire Date Thrive assessed: 01/22/23 AUDIT C Alcohol Use Questionnaire (AUDIT-C) 1. How often do you have a drink containing alcohol?: Never 2. How many drinks containing alcohol do you have on a typical day when you are drinking?: 1 or 2 3. How often do you have six or more drinks on one occasion?: Never Total Score: 0 Score Reviewed/Action Taken: No CELESTINE-7 AMB Questionnaire CELESTINE-7 Date CELESTINE - 7 assessed: 04/23/23 Feeling nervous, anxious, or on edge: 0 = Not at all Not being able to stop or control worryin = Not at all Worrying too much about different things: 0 = Not at all Trouble relaxin = Not at all Being so restless that it is hard to sit still: 0 = Not at all Becoming easily annoyed or irritable: 0 = Not at all Feeling afraid as if something awful might happen: 0 = Not at all Total CELESTINE-7 score (0-4 normal; 5-9 mild; 10-14 moderate; 15-21 severe): 0 Source: Developed by Drs. Shade Ramirez, Damaris Maxwell, Andres Nix and colleagues, with an educational gaston from [employer]. CELESTINE-7 Assessment Billing CELESTINE-7 Assessment Tool: CELESTINE-7 Assessment 67039 Review of Systems Const Denies body aches, Denies chills, Denies fever(s) and Denies headache(s) Eyes Denies change in vision ENT Denies dizziness, Denies otalgia, Denies headache(s), Denies nasal discharge, Denies sinus pain and Denies sore throat Card Denies chest pain, Denies edema, Denies lightheadedness and Denies dyspnea Resp Denies cough, Denies dyspnea and Denies wheezing GI Denies abdominal pain, Denies constipation, Denies diarrhea, Denies nausea and Denies vomiting Denies hematuria, Denies dysuria and Denies flank pain Musc Denies myalgias Skin/Breast Denies rash Neuro Denies dizziness and Denies headache(s) Aller/Immun Denies wheezing Physical exam (Primary Care) Vital Signs: Last Vital Signs Pulse 71 04/23/23 11:05 BP 182/90 H 04/23/23 11:05 Pulse Ox 99 04/23/23 11:05 Oxygen Delivery Method Room Air 04/23/23 11:05 BMI result Body Mass Index 25.6 Tobacco/Smoking Status: Tobacco use Status Tobacco use date assessed 04/23/23 04/23/23 11:06 Patient Tobacco Use Status Never used Tobacco 04/23/23 11:06 PHQ-9: PHQ-9 Score PHQ-9: Total score 0 04/23/23 11:38 Depression Screening Interpretation: Negative Thrive Assessment: Date of Thrive Assessment Date Thrive assessed 01/22/23 04/23/23 11:06 Const General: cooperative and no acute distress Orientation/consciousness: patient oriented x3 HENMT Head: Yes normocephalic and Yes atraumatic Ears: TM's normal bilaterally Face and sinus: Yes sinuses nontender Mouth: oropharynx normal and moist mucous membranes Throat: Yes posterior oropharynx normal Eyes General: appearance normal, both eyes and all related structures Pupils: Equal, round and reactive pupils present EOM: EOMs intact bilaterally Neck Neck: Yes normal visual inspection, Yes full ROM and Yes no lymphadenopathy Thyroid: Thyroid normal Resp Effort & Inspection: normal respiratory effort and able to speak in complete sentences Auscultation: clear to auscultation bilaterally, no crackles, no rales, no rhonchi and no wheezes Cardio Rate: regular rate Rhythm: regular rhythm Heart sounds: S1 normal heart sound present, S2 normal heart sound present and no murmurs GI Palpation (GI): Soft to palpation, not firm, nontender, no guarding, not rigid and no hepatosplenomegaly Auscultation: normal bowel sounds General: No CVA tenderness Back/Spine/Pelvis Back: No CVA tenderness Skin General skin exam: no rashes or lesions noted Neuro General: patient oriented x3 Cranial nerves: Yes Equal, round and reactive pupils present Gait exam (Neuro): Normal gait present Extrem General: Yes full ROM and No edema Assessment and Plan Assessment & Plan (1) Asthma: Code(s): J45.909 - Unspecified asthma, uncomplicated Plan: Stable Continue Flovent inhaler b.i.d. and albuterol inhaler p.r.n. (2) Uncontrolled hypertension: Code(s): I10 - Essential (primary) hypertension Plan: Goal BP equal or less than 140/90, blood pressure high in the office today, patient denies acute symptoms Patient is to continue diltiazem, lisinopril, hydrochlorothiazide Start hydralazine 10 mg t.i.d.-educated about possible adverse reactions and when to notify provider Patient is to continue monitor blood pressures at home Signs and symptoms reviewed when to notify provider or go to the emergency department Reinforced low-sodium diet Follow-up with nurse in 2 weeks for BP recheck (3) New onset atrial fibrillation: Code(s): I48.91 - Unspecified atrial fibrillation Plan: Continue diltiazem and Eliquis Continue to follow-up with [facility] (4) Post-menopausal: Code(s): Z78.0 - Asymptomatic menopausal state (5) Screening for breast cancer: Code(s): Z12.39 - Encounter for other screening for malignant neoplasm of breast (6) Adult general medical exam: Code(s): Z00.00 - Encounter for general adult medical examination without abnormal findings Plan Follow-up in 3 months Orders: Orders XR DEXA axial skeleton Today Z78.0 - Asymptomatic menopausal state MM tomosynthesis screening BI Today Z12.31 - Encounter for screening mammogram for malignant neoplasm of breast Medications: New hydralazine 10 mg PO TID 30 days 90 tabs 2RF I10 - Essential (primary) hypertension Coding Level of Care Code Est Pt Prev Care >65y(90570) Diagnoses Asthma J45.909 Uncontrolled hypertension I10 New onset atrial fibrillation I48.91 Post-menopausal Z78.0 Screening for breast cancer Z12.39 Adult general medical exam Z00.00 Additional Codes CELESTINE-7 Assessment Billing - CELESTINE-7 Assessment Tool: CELESTINE-7 Assessment [id number] ([id number])
[2023-04-23 11:56] VITALS: BP 182/100
== END 2023-04-23 12:26 | disposition home or self-care (01) ==
PROVIDERS: PCP Nurse Practitioner Family; Visit Provider Nurse Practitioner Family
DX: J45.909 Unspecified asthma, uncomplicated (principal); I10 Essential (primary) hypertension; I48.91 Unspecified atrial fibrillation; Z78.0 Asymptomatic menopausal state; Z12.39 Encounter for other screening for malignant neoplasm of breast; Z00.00 Encounter for general adult medical examination without abnormal findings
CPT/HCPCS: 99397

== ENCOUNTER 2023-05-13 11:21 | Outpatient (REF) | payer OTHER, SELFPAY | END 2023-05-13 11:22 | disposition home or self-care (01) | LOC: HO.HMGCX 11:21 | PROVIDERS: PCP Nurse Practitioner Family; Visit Provider Urology | DX: R35.0 Frequency of micturition (principal) | CPT/HCPCS: 76775 ==

== ENCOUNTER 2023-06-04 12:41 | Outpatient (REF) | payer OTHER, SELFPAY ==
--- NOTE | ~2023-06-04 | MM_ITS ---
EXAMINATION: MM SCREENING DIGITAL BREAST TOMOSYNTHESIS, BILATERAL CLINICAL INFORMATION: Screening. Asymptomatic. COMPARISON: Mammography: This study is compared with prior exams dating back to 2015. TECHNIQUE: Digital breast tomosynthesis is performed in both the craniocaudal and mediolateral oblique views along with computer-aided detection (CAD). Synthesized 2D images are generated from the tomosynthesis. FINDINGS: There are scattered areas of fibroglandular density (ACR BI-RADS breast composition Category b). There are grouped calcifications in the upper inner quadrant of the right breast at its deep third. These calcifications may be vascular however they have somewhat of a different pattern than other vascular calcifications in the breast and are focal. Additional imaging with magnification mammography is advised for further evaluation. In the left breast, there are no significant masses, abnormal calcifications, or other abnormalities. MM/MM tomosynthesis screening BI IMPRESSION: Calcifications in the right breast warrant additional mammographic imaging with magnification. No mammographic signs of malignancy left breast. ASSESSMENT: BI-RADS BI-RADS 0 - Incomplete: Needs additional Imaging. RECOMMENDATION: Additional views of the right breast. Radiology department staff will contact the patient for additional imaging. Additional Imaging required This examination should not preclude the clinical evaluation of a suspicious palpable abnormality. This patient's information was entered into a reminder system with a target due date for their next mammogram.
--- NOTE | ~2023-06-04 | MM_ITS ---
EXAMINATION: BONE DENSITOMETRY CLINICAL INDICATION: Asymptomatic menopausal state. COMPARISON: Baseline BD dated 03/23/2012. TECHNIQUE: Using a [employer] DXA System (software version: 13.1) manufactured by [employer], dual-energy x-ray absorptiometry was performed of the lumbar spine and left hip. The images are of good technical quality. Summary results are attached. FINDINGS: LEFT FEMUR, NECK: Current: BMD 0.745 g/cm2, Z-score -0.1, T-score -2.1, osteopenia. Baseline: BMD 0.784 g/cm2. LEFT FEMUR, TOTAL: Current: BMD 0.749 g/cm2, Z-score -0.2, T-score -2.1, osteopenia, 15.0% decrease from baseline (<5% change is not significant). Baseline: BMD 0.881 g/cm2. AP SPINE L1-L3 (excluding L4): The data of L1-L4 has been changed to exclude the L4 vertebral body, because degenerative sclerosis at this level may cause overestimation of lumbar spine density. Current: BMD 1.076 g/cm2, Z-score 1.0, T-score -0.8, normal, 6.4% decrease from baseline (<5% change is not significant). Baseline: BMD 1.150 g/cm2. IDENTIFIED RISK FACTORS: Early menopause, glucocorticoids (chronic), hysterectomy, secondary osteoporosis, thiazide. HISTORY OF FRACTURE: None listed. MEDICATIONS: None listed. MM/XR DEXA axial skeleton IMPRESSION: 1. DIAGNOSIS: Osteopenia based on the lowest T-score value of -2.1 in the femur neck and total femur applying World Health Organization criteria. 2. 10-YEAR FRACTURE RISK PREDICTION, FRAX: Major osteoporotic fracture (clinical spine, forearm, hip or shoulder) 23.3%. Hip fracture 8.0%. 3. Treatment Recommendations: NOF guidelines recommend consideration for treatment in postmenopausal women and men age 50 and older presenting with the following: -A hip or vertebral (clinical or morphometric) fracture. -T-score less than or equal to -2.5 at the femoral neck or spine after appropriate evaluation to exclude secondary causes. -Low bone mass at the hip or spine and a 10-year fracture probability by FRAX of greater than or equal to 3% for hip fracture or greater than or equal to 20% for major osteoporotic fracture based on the [place] adapted WHO algorithm. 4. Other Recommendations: All treatment decisions require clinical judgment and consideration of individual patient factors, including patient preferences, comorbidities, previous drug use, risk factors not captured in the FRAX model (e.g. frailty, falls, vitamin D deficiency, increased bone turnover, interval significant decline in bone density) and possible under or overestimation of fracture risk by FRAX. Additional medical evaluation for secondary cause of low bone mineral density may be appropriate. FUTURE SCAN RECOMMENDATION: People with diagnosed cases of osteoporosis or at high risk for fracture should have regular bone mineral density tests. For patients eligible for Medicare, routine testing is allowed once every 2 years. The testing frequency can be increased to one year for patients who have rapidly progressing disease, those who are receiving or discontinuing medical therapy to restore bone mass, or have additional risk factors.
== END 2023-06-04 12:42 | disposition home or self-care (01) ==
LOC: HO.MAMMO 12:41
PROVIDERS: PCP Nurse Practitioner Family; Visit Provider Nurse Practitioner Family
DX: Z12.31 Encounter for screening mammogram for malignant neoplasm of breast (principal); Z13.820 Encounter for screening for osteoporosis; Z78.0 Asymptomatic menopausal state; R35.0 Frequency of micturition; N95.2 Postmenopausal atrophic vaginitis; N81.10 Cystocele, unspecified
CPT/HCPCS: 77063; 77067; 77080; 99212

== ENCOUNTER → 2023-06-04 13:30 | Outpatient (BNV) | payer OTHER, SELFPAY | PROVIDERS: PCP Nurse Practitioner Family; Visit Provider Radiology Diagnostic Radiology | DX: Z12.31 Encounter for screening mammogram for malignant neoplasm of breast (principal) | CPT/HCPCS: 77063; 77067 ==

== ENCOUNTER 2023-06-04 13:59 | Outpatient (AMB) | payer OTHER, SELFPAY ==
--- NOTE | 2023-06-04 14:54 | A.OFFVIS_ITS ---
Intake Intake Visit Reasons: 4w/US Intake Note: Presents today for a follow-up on US Results: Meds- Myrbetriq Allergies to Antibiotic- Penicillin Blood Thinner- Eliquis Ppap Coordinator Required: No Accompanied by: Self / Same As Patient Allergies penicillin V Allergy (Unknown, Verified 07/24/23 13:32) Hives Medication List - Last Reconciled 06/04/23 by Luly John MD albuterol sulfate 90 mcg/actuation 2 puffs inhalation Q4H PRN apixaban (Eliquis) 5 mg PO BID colestipol 2 grams PO BID diltiazem HCl 180 mg PO DAILY fluticasone propionate 220 mcg/actuation (Flovent HFA) 1 puff inhalation BID hydralazine 10 mg PO TID 30 days hydrochlorothiazide 12.5 mg PO DAILY lisinopril 40 mg PO DAILY 90 days solifenacin (Vesicare) 10 mg PO DAILY HPI HPI Comments History of Present Illness Details Ruby is a 77-year-old female who presents today to the office for a follow-up. 06/04/23- states did not start med, was expensive not covered by insurance. Still having urinary urgency that is bothersome. She is on HCTZ which is a diuretic and it may be contributing to her urinary symptoms. I reviewed renal US results - WNL Plan vesicare 10 mg daily to replace Myrbetriq- discussed SE to include but not limited to blurred vision dry mouth. Review of chart: 04/10/2023? She presents today for an evaluation of frequency of micturition. Patient has a past medical history significant for gall stones, pancreatitis, asthma and hypertension. She states that she was referred to the urology office by her PCP due to complaints of urinary frequency. Patient also noted that she is feeling a bulge out when she showers and wipes after urination. She was seen a photonics engineer in the past and was started on Eliquis. She reports that she is going to bathroom every hour during the day and getting up 5-7 times at night to urinate. Patient also notes on and off urinary lekage. She is on HCTZ. Patient states that she has had 3 vaginal deliveries. Examination: Grade III cystocele noted. In review of medications, she is on HCTZ which is a diuretic and it may be contributing to her urinary symptoms. Evaluation today?UA?Leukocytes: negative; blood: negative. catheterized urine was 80 mL. Plan:? 06/04/23--vesicare 10 mg daily Cystocele, currently emptying bladder adequately, will monitor Follow-up in 6 months [facility] Medical History Encounter to establish care Hx of cancer of uterus Gallstone pancreatitis Asthma Hypertension Surgical History Hx of hysterectomy History of colonoscopy S/P cholecystectomy Family History Mother Heart disease Father No problems noted. Social History Household Members: Spouse Housing: House Do you presently have visiting nurse or other home services: No Patient Tobacco Use Status: Never used Tobacco Advance Directives Date on File: 01/23/23 service: No Cognitive needs: No Hearing needs: No Vision needs: No Review of Systems Const All systems reviewed & are unremarkable except as noted in HPI and below Reports no additional complaints Eyes Reports no additional complaints ENT Reports no additional complaints Card Denies dyspnea Resp Denies cough and Denies dyspnea GI Reports no additional complaints Reports no additional complaints Musc Reports no additional complaints Skin/Breast Denies rash and Denies unusual bruising Neuro Reports no additional complaints Psych Reports no additional complaints Endo Reports no additional complaints Olvin/Lymph Reports no additional complaints Aller/Immun Reports no additional complaints Assessment & Plan Assessment & Plan (1) Urinary frequency: Code(s): R35.0 - Frequency of micturition (2) Vaginal atrophy: Code(s): N95.2 - Postmenopausal atrophic vaginitis (3) Female cystocele: Code(s): N81.10 - Cystocele, unspecified Plan VESIcare 10 mg daily to replace Myrbetriq Renal ultrasound Orders: Orders US renal BI 05/13/23 R35.0 - Frequency of micturition Medications: New solifenacin (Vesicare) 10 mg PO DAILY 30 tabs 1RF Discontinued mirabegron ER Discontinued Reason: Doctor's Order 50 mg PO DAILY 90 days 90 tabs 2RF Coding Level of Care Code Est Pt Level 4 (85551) Diagnoses Urinary frequency R35.0 Vaginal atrophy N95.2 Female cystocele N81.10
== END 2023-06-04 15:23 | disposition home or self-care (01) ==
PROVIDERS: PCP Nurse Practitioner Family; Visit Provider Urology
DX: R35.0 Frequency of micturition (principal); N95.2 Postmenopausal atrophic vaginitis; N81.10 Cystocele, unspecified
CPT/HCPCS: 99214

== ENCOUNTER 2023-06-15 12:59 | Outpatient (AMB) | payer OTHER, SELFPAY ==
[2023-06-15 13:08] VITALS: BP 170/104; PULSE 68; BMI 26.1
--- NOTE | 2023-06-15 13:08 | A.OFFVIS_ITS ---
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 Allergies penicillin V Allergy (Unknown, Verified 06/15/23 13:10) Hives Medication List - Last Reconciled 06/15/23 by Vee Brown, MATERIAL HANDLING CREW SUPERVISOR-C albuterol sulfate 90 mcg/actuation 2 puffs inhalation Q4H PRN apixaban (Eliquis) 5 mg PO BID colestipol 2 grams PO BID diltiazem HCl 180 mg PO DAILY fluticasone propionate 220 mcg/actuation (Flovent HFA) 1 puff inhalation BID hydralazine 10 mg PO TID hydrochlorothiazide 12.5 mg PO DAILY lisinopril 40 mg PO DAILY 90 days HPI 3 month follow up HPI Details Ruby is a 77-year-old female with past medical history of hype rtension, asthma and newer finding atrial fibrillation who presents for follow- up. Today she reports that her blood pressure has been elevated most days since her last visit. She has not been bothered by heart palpitations. She did go for her stress test and states that her blood pressure was too high so they were not able to complete the test. She denies any chest discomfort at rest or with a ctivity. No heart palpitations, shortness of breath, presyncope, syncope, PND, orthopnea or edema. She is concerned about her blood pressure. She is on Eliquis and no reports of bleeding. Taking meds as directed. States her PCP just ordered hydralazine but she did not started yet. PENDING SALE TO [facility] Medical History Encounter to establish care Hx of cancer of uterus Gallstone pancreatitis Asthma Hypertension Surgical History Hx of hysterectomy History of colonoscopy S/P cholecystectomy Family History Mother Heart disease Father No problems noted. Social History Household Members: Spouse Housing: House Do you presently have visiting nurse or other home services: No Patient Tobacco Use Status: Never used Tobacco Advance Directives Date on File: 01/23/23 service: No Cognitive needs: No Hearing needs: No Vision needs: No Review of Systems Const All systems reviewed & are unremarkable except as noted in HPI and below ENT Denies dizziness Card Denies chest pain, Denies chest pain at rest, Denies chest pain with activity, Denies rapid heart rate, Denies pedal edema, Denies edema, Denies leg edema, Denies lightheadedness, Denies palpitations, Denies dyspnea, Denies dyspnea on exertion and Denies orthopnea Resp Denies cough, Denies dyspnea and Denies dyspnea on exertion GI Denies hematochezia and Denies change in stool character Musc Denies abnormal gait, Denies limited range of motion, Denies muscle cramps, Denies muscle weakness, Denies numbness, Denies radiating pain into limb, Denies stiffness and Denies tingling Neuro Denies abnormal gait, Denies dizziness, Denies numbness and Denies tingling Endo Denies palpitations Physical Exam Vital Signs: Last Vital Signs Pulse 68 06/15/23 13:08 BP 170/104 H 06/15/23 13:08 BMI result Body Mass Index 26.1 Const General: cooperative, healthy appearing, comfortable and no acute distress Orientation/consciousness: patient oriented x3 Neck Neck: Yes normal visual inspection and Yes no JVD Resp Effort & Inspection: normal respiratory effort Auscultation: clear to auscultation bilaterally, no crackles, no rales, no rhonchi and no wheezes Cardio Jugular venous distension: no JVD Rate: regular rate Rhythm: regular rhythm Heart sounds: S1 normal heart sound present, S2 normal heart sound present, no murmurs and no rubs Neuro General: patient oriented x3 Extrem General: Yes normal to inspection and No no pedal edema Psych Appearance: grossly normal Mental Status: mental status grossly normal Speech and movement: Normal speech and movement present Assessment & Plan Assessment & Plan (1) New onset atrial fibrillation: Code(s): I48.91 - Unspecified atrial fibrillation Plan[place] [facility] [place] with report of heart palpitations and finding of new onset atrial fibrillation with rapid ventricular response. She was treated for rate slowing medications and converted to normal sinus rhythm. Her troponin was elevated up to 213 which was thought to be related to demand from AFib RVR. An echocardiogram done 01/22/2023 showed EF 67%, left atrium mildly dilated, mild pulmonary hypertension, dilated ascending aorta 3.9 cm a Holter monitor was done on 01/29/2023 for 3 days showing sinus rhythm with average heart rate 62, heart rate range 44 to 97, 52% of the time heart rate less than 60, supraventricular ectopy 2.8% of time. On last visit a nuclear stress test was ordered however not completed due to uncontrolled hypertension. Today she reports no heart palp itations and no chest discomfort at rest or with activity. She continues on diltiazem for heart rate control. She is on Eliquis for anticoagulation. No bleeding issues reported. Labs done 01/27/2023 showed creatinine 0.72. Continue current management. (2) Uncontrolled hypertension: Code(s): I10 - Essential (primary) hypertension Plan: History of hypertension. She tells me her blood pressure is always elevated. She has been on lisinopril, hydrochlorothiazide and diltiazem. She recently saw her PCP and hydralazine was ordered. She tells me that she has not yet started the hydralazine. Blood pressure today is quite elevated initially 170/104, recheck done by me 150/92. Asymptomatic at present. Lisinopril is currently at our max dose. She does not want to increase the hydrochlorothiazide due to frequent urination. She does have average heart rate of 62 on Holter monitor. Will continue diltiazem at current dose. Will have her take the hydrochlorothiazide, starting at 10 mg b.i.d.. She is not sure she can be compliant with t.i.d. dosing. Then after 1 week instructed to increase hydralazine to 20 mg b.i.d.. Office blood pressure check in 2 weeks. Cardiology office visit in 4 weeks. Once blood pressure is controlled then nuclear stress test can be completed. Plan Time spent on chart review, documentation, interview and assess Coding Level of Care Code Est Pt Level 4 (96176) Diagnoses New onset atrial fibrillation I48.91 Uncontrolled hypertension I10 Time Spent (min) 28
== END 2023-06-15 13:38 | disposition home or self-care (01) ==
PROVIDERS: PCP Nurse Practitioner Family; Visit Provider Nurse Practitioner Family
DX: I48.91 Unspecified atrial fibrillation (principal); I10 Essential (primary) hypertension
CPT/HCPCS: 99214

== ENCOUNTER → 2023-06-15 12:59 | Outpatient (BNVA) | payer OTHER, SELFPAY | PROVIDERS: PCP Nurse Practitioner Family; Visit Provider Nurse Practitioner Family | DX: I48.91 Unspecified atrial fibrillation (principal); I10 Essential (primary) hypertension; Z79.01 Long term (current) use of anticoagulants; Z79.899 Other long term (current) drug therapy | CPT/HCPCS: 99212 ==

== ENCOUNTER → 2023-07-01 10:41 | Outpatient (BNVA) | payer OTHER, SELFPAY | PROVIDERS: PCP Nurse Practitioner Family; Visit Provider Nurse Practitioner Family | DX: Z01.30 Encounter for examination of blood pressure without abnormal findings (principal); Z79.899 Other long term (current) drug therapy | CPT/HCPCS: 99211 ==

== ENCOUNTER 2023-07-08 11:02 | Outpatient (REF) | payer OTHER, SELFPAY ==
--- NOTE | ~2023-07-08 | MM_ITS ---
EXAMINATION: MM DIAGNOSTIC DIGITAL MAMMOGRAPHY, RIGHT CLINICAL INFORMATION: Evaluate focal calcifications right breast upper inner quadrant, posterior one third, possibly vascular. COMPARISON: Mammography: Screening mammography 06/04/2023, and 03/19/2015. TECHNIQUE: Digital mammography is performed in the following views: Right 2-D spot magnification CC views x2, and ML views x2. FINDINGS: There are scattered areas of fibroglandular density (ACR BI-RADS breast composition Category b). Magnification views of the right breast demonstrate the calcifications in question are almost certainly vascular in etiology. There are no suspicious calcifications. Findings are benign. Results are provided to the patient at time of visit by the technologist. MM/MM added views RT IMPRESSION: No findings right breast suspicious for malignancy. Calcifications in question within the upper inner right breast are vascular. Recommend the patient resume routine annual screening. ASSESSMENT: BI-RADS BI-RADS 2 - Benign Findings RECOMMENDATION: 1 year F/U This patient's information was entered into a reminder system with a target due date for their next mammogram.
== END 2023-07-08 11:03 | disposition home or self-care (01) ==
LOC: HO.MAMMO 11:02
PROVIDERS: PCP Internal Medicine; Visit Provider Nurse Practitioner Family
DX: R92.1 Mammographic calcification found on diagnostic imaging of breast (principal)
CPT/HCPCS: 77065

== ENCOUNTER → 2023-07-08 11:30 | Outpatient (BNV) | payer OTHER, SELFPAY | PROVIDERS: PCP Internal Medicine; Visit Provider Radiology Diagnostic Radiology | DX: R92.1 Mammographic calcification found on diagnostic imaging of breast (principal) | CPT/HCPCS: 77065 ==

== ENCOUNTER 2023-07-24 13:12 | Outpatient (AMB) | payer OTHER, SELFPAY ==
[2023-07-24 13:28] VITALS: BP 130/80; PULSE 71; BMI 26.2
--- NOTE | 2023-07-24 13:28 | A.OFFVIS_ITS ---
Intake Vital Signs 07/24/23 13:28 Height 5 ft 4 in Weight 152 lb 8.958 oz BMI 26.2 BP 130/80 Blood Pressure Location Lt brachial Position Sitting Pulse 71 Pulse Source Pulse Oximeter Intake Visit Reasons: 5 wk f/up [employer] Captain Required: No Allergies penicillin V Allergy (Unknown, Verified 07/24/23 13:32) Hives Medication List - Last Reconciled 07/24/23 by Vee Brown, OUTSOLE CASER-C albuterol sulfate 90 mcg/actuation 2 puffs inhalation Q4H PRN apixaban (Eliquis) 5 mg PO BID colestipol 2 grams PO BID diltiazem HCl 180 mg PO DAILY fluticasone propionate 220 mcg/actuation (Flovent HFA) 1 puff inhalation BID hydralazine 10 mg PO TID hydrochlorothiazide 12.5 mg PO DAILY lisinopril 40 mg PO DAILY 90 days HPI 5 wk f/up HPI Details Ruby is a 77-year-old female with past medical history of hypertension, asthma, newer finding of paroxysmal atrial fibrillation who presents for follow-up. Today she reports that since her last visit she was started on hydralazine for blood pressure control. She stopped taking hydrochlorothiazide around a week ago because of the increased urination with it. She reports having bladder issues and could not handle frequent urination. Since then she has been taking 2 tablets of hydralazine twice a day. She feels well with no concerning symptoms. She has not had any recurrent chest fluttering. No lightheadedness, presyncope, syncope, falls. No chest discomfort at rest or with activity. No shortness of breath, PND, orthopnea or edema. No bleeding issues with Eliquis use. Taking diltiazem and lisinopril as directed. [facility] Medical History Encounter to establish care Hx of cancer of uterus Gallstone pancreatitis Asthma Hypertension Surgical History Hx of hysterectomy History of colonoscopy S/P cholecystectomy Family History Mother Heart disease Father No problems noted. Social History Household Members: Spouse Housing: House Do you presently have visiting nurse or other home services: No Patient Tobacco Use Status: Never used Tobacco Advance Directives Date on File: 01/23/23 service: No Cognitive needs: No Hearing needs: No Vision needs: No Review of Systems Const All systems reviewed & are unremarkable except as noted in HPI and below ENT Denies dizziness Card Denies chest pain, Denies chest pain at rest, Denies chest pain with activity, Denies rapid heart rate, Denies pedal edema, Denies edema, Denies leg edema, Denies lightheadedness, Denies palpitations, Denies dyspnea, Denies dyspnea on exertion and Denies orthopnea Resp Denies cough, Denies dyspnea and Denies dyspnea on exertion GI Denies hematochezia and Denies change in stool character Musc Denies abnormal gait, Denies limited range of motion, Denies muscle cramps, Denies muscle weakness, Denies numbness, Denies radiating pain into limb, Denies stiffness and Denies tingling Neuro Denies abnormal gait, Denies dizziness, Denies numbness and Denies tingling Endo Denies palpitations Physical Exam Vital Signs: Last Vital Signs Pulse 71 07/24/23 13:28 BP 130/80 07/24/23 13:28 BMI result Body Mass Index 26.2 Const General: cooperative, healthy appearing, comfortable and no acute distress Orientation/consciousness: patient oriented x3 Neck Neck: Yes normal visual inspection Resp Effort & Inspection: normal respiratory effort Auscultation: clear to auscultation bilaterally, no crackles, no rales, no rhonchi and no wheezes Cardio Jugular venous distension: no JVD Rate: regular rate Rhythm: regular rhythm Heart sounds: S1 normal heart sound present, S2 normal heart sound present, no murmurs and no rubs Neuro General: patient oriented x3 Extrem General: Yes normal to inspection and No no pedal edema Psych Appearance: grossly normal Mental Status: mental status grossly normal Speech and movement: Normal speech and movement present Assessment & Plan Assessment & Plan (1) New onset atrial fibrillation: Code(s): I48.91 - Unspecified atrial fibrillation Plan: [facility] [place] admission January 2023 with report of heart palpitations and finding of new onset atrial fibrillation with rapid ventricular response. She was treated for rate slowing medications and converted to normal sinus rhythm. Her troponin was elevated up to 213 which was thought to be related to demand from AFib RVR. An echocardiogram done 01/22/2023 showed EF 67%, left atrium mildly dilated, mild pulmonary hypertension, dilated ascending aorta 3.9 cm a Holter monitor was done on 01/29/2023 for 3 days showing sinus rhythm with average heart rate 62, heart rate range 44 to 97, 52% of the time heart rate less than 60, supraventricular ectopy 2.8% of time. A nuclear stress test was ordered however not completed due to elevated blood pressure when she arrived for test. Today she reports no heart palpitations and no chest discomfort at rest or with activity. She continues on diltiazem for heart rate control. She is on Eliquis for anticoagul ation. No bleeding issues reported. Labs done 01/27/2023 showed creatinine 0.72. Continue current management. Now the blood pressure is better controlled will have her obtain the nuclear stress test as previously ordered. Plan to call her with results. (2) Uncontrolled hypertension: Code(s): I10 - Essential (primary) hypertension Plan: History of hypertension. On prior visit she told me that her blood pressure is always elevated. She had been on lisinopril, hydrochlorothiazide and diltiazem. Since her last visit hydralazine was added. Patient tells me she stopped taking hydrochlorothiazide a week ago due to frequent urination. She describes having bladder issues and could not tolerate this symptom. She doubled her hydralazine to 20 mg b.i.d.. Initial blood pressure 130/80 today, recheck done by me 142/78. Will have her periodically check home blood pressures and call if systolic is running greater than 140. She may remain off hydrochlorothiazide. Will increase hydralazine to 25 mg t.i.d.. Continue lisinopril and diltiazem. She has a follow-up with her PCP in 1 month. Blood pressure can be rechecked at that time. Will arrange for cardiology follow-up in 4 months, sooner if needed Plan Time spent on chart review, documentation, interview and assess Coding Level of Care Code Est Pt Level 4 (14297) Diagnoses New onset atrial fibrillation I48.91 Uncontrolled hypertension I10 Time Spent (min) 28
== END 2023-07-24 14:00 | disposition home or self-care (01) ==
PROVIDERS: PCP Nurse Practitioner Family; Visit Provider Nurse Practitioner Family
DX: I48.91 Unspecified atrial fibrillation (principal); I10 Essential (primary) hypertension
CPT/HCPCS: 99214

== ENCOUNTER → 2023-07-24 13:12 | Outpatient (BNVA) | payer OTHER, SELFPAY | PROVIDERS: PCP Nurse Practitioner Family; Visit Provider Nurse Practitioner Family | DX: I48.91 Unspecified atrial fibrillation (principal); I10 Essential (primary) hypertension | CPT/HCPCS: 99212 ==

== ENCOUNTER 2023-08-24 15:33 | Outpatient (AMB) | payer OTHER, SELFPAY ==
[2023-08-24 15:38] VITALS: BP 170/100; BMI 25.7
--- NOTE | 2023-08-24 15:38 | A.OFFPC_ITS ---
Vital Signs 08/24/23 15:38 Height 5 ft 4 in Weight 150 lb BMI 25.7 BP 170/100 H Blood Pressure Location Lt brachial Position Sitting Intake Visit Reasons: Transfer Of care Dr. 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 Accompanied by: Self / Same As Patient Allergies penicillin V Allergy (Unknown, Verified 08/24/23 16:02) Hives Medication List - Last Reconciled 08/24/23 by Paloma Barnes MD albuterol sulfate 90 mcg/actuation 2 puffs inhalation Q4H PRN apixaban (Eliquis) 5 mg PO BID colestipol 2 grams PO BID diltiazem HCl CD 180 mg PO DAILY fluticasone propionate 220 mcg/actuation (Flovent HFA) 1 puff inhalation BID hydralazine 25 mg PO TID lisinopril 40 mg PO DAILY 90 days Tobacco use date assessed: 08/24/23 Fall risk assessment: No Falls in past year Last assessed Fall Risk: 08/24/23 Dental Screening Dental Screen Date: 08/24/23 Did you have a dental visit in the last 12 months?: No Did you have a dental problem in the last 6 months where you did not have access to dental care?: No Was dental information given to patient?: Patient has dentist HPI HPI Comments History of Present Illness Details This is a 78-year-old female with uncontrolled hypertension, asthma and atrial fibrillation with rapid ventricular response on chronic anticoagulation that comes today to establish care. Blood pressure still elevated and I advised to take her blood pressure at home 3 times a week and do a diary. Blood pressure will be recheck in 3 weeks by nurse navigator. She is compliant with her medications. On long-acting inhaler for her asthma and she is rescue inhaler less than once a month. Recently diagnosed with atrial fibrillation that is follow by cardiology. The goal is heart rate control. On chronic anticoagulation and denies any active bleeding. Bone density done 2023 shows osteopenia and I will send calcium with vitamin-D. No chest pain or shortness of breath. [facility] Medical History (Updated 08/24/23 @ 16:13 by Paloma Barnes MD) Encounter to establish care Hx of cancer of uterus Gallstone pancreatitis Asthma Hypertension Surgical History Hx of hysterectomy History of colonoscopy S/P cholecystectomy Family History Mother Heart disease Father No problems noted. Social History Household Members: Spouse Housing: House Do you presently have visiting nurse or other home services: No Patient Tobacco Use Status: Never used Tobacco e-Cigarette/Vaping Use: Never Used Second Hand Smoke Exposure: No Advance Directives Date on File: 01/23/23 service: No Current occupational status: retired Cognitive needs: No Hearing needs: No Vision needs: No Questionnaire PHQ-9 Over the last 2 weeks, how often have you been bothered by any of the following problems? 1. Little interest or pleasure in doing things: not at all 2. Feeling down, depressed, or hopeless: several days 3. Trouble falling or staying asleep, or sleeping too much: not at all 4. Feeling tired or having little energy: not at all 5. Poor appetite or overeating: not at all 6. Feeling bad about yourself - or that you are a failure or have let yourself or your family down: not at all 7. Trouble concentrating on things, such as reading the newspaper or watching television: not at all 8. Moving or speaking so slowly that other people could have noticed. Or the o pposite - being so fidgety or restless that you have been moving around a lot more than usual: not at all 9. Thoughts that you would be better off or of hurting yourself in some way: not at all Total score: 1 Depression Screening Interpretation: Negative Depression Screening Done: Yes 41116 - PHQ-9 Billing: Yes Source: Developed by Drs. Shade Ramirez, Damaris Maxwell, Andres Nix and colleagues, with an educational gaston from [employer]. Thrive Questionnaire Date Thrive assessed: 08/24/23 I am a: Patient What is your living situation today?: I have a steady place to live Within the past 12 months, did the food you bought not last and you didn't have the money to get more?: Never true Within the past 12 months, did you worry whether your food would run out before you got money to buy more?: Never true Do you have trouble paying for medicines?: No Do you have trouble getting transportation to medical appointments?: No Do you have trouble paying your heating and electricity bill?: No Do you have trouble taking care of your child, family member or friend?: No Do you have trouble with day-to-day activities such as bathing, preparing meals, shopping, managing finances, etc.?: No Are you currently unemployed and looking for a job?: No Are you interested in more education?: No Please select the resources that you would like help with: None Currently or been in a relationship where the following occur: no concerns reported THRIVE Score: 0 AUDIT C Alcohol Use Questionnaire (AUDIT-C) 1. How often do you have a drink containing alcohol?: Never Total Score: 0 CELESTINE-7 AMB Questionnaire CELESTINE-7 Date CELESTINE - 7 assessed: 08/24/23 Feeling nervous, anxious, or on edge: 0 = Not at all Not being able to stop or control worryin = Not at all Worrying too much about different things: 0 = Not at all Trouble relaxin = Not at all Being so restless that it is hard to sit still: 0 = Not at all Becoming easily annoyed or irritable: 0 = Not at all Feeling afraid as if something awful might happen: 0 = Not at all Total CELESTINE-7 score (0-4 normal; 5-9 mild; 10-14 moderate; 15-21 severe): 0 Source: Developed by Drs. Shade Ramirez, Damaris Maxwell, Andres Nix and colleagues, with an educational gaston from [employer]. CELESTINE-7 Assessment Billing CELESTINE-7 Assessment Tool: CELESTINE-7 Assessment 16068 Review of Systems Const All systems reviewed & are unremarkable except as noted in HPI and below Eyes Reports no additional complaints, Denies change in vision and Denies other visual disturbances Card Denies chest pain at rest, Denies chest pain with activity, Denies edema, Denies irregular heart rhythm, Denies claudication, Denies dyspnea, Denies dyspnea on exertion, Denies orthopnea, Denies paroxysmal nocturnal dyspnea and Denies slow heart rate Resp Denies cough, Denies dyspnea and Denies dyspnea on exertion GI Denies abdominal pain, Denies change in bowel habits, Denies excessive flatus, Denies nausea and Denies vomiting Denies urinary incontinence, Denies urinary hesitancy and Denies urinary urgency Physical exam (Primary Care) Vital Signs: Last Vital Signs BP 170/100 H 08/24/23 15:38 BMI result Body Mass Index 25.7 Tobacco/Smoking Status: Tobacco use Status Tobacco use date assessed 08/24/23 08/24/23 15:49 Patient Tobacco Use Status Never used Tobacco 08/24/23 15:49 e-Cigarette/Vaping Use Never Used 08/24/23 15:49 PHQ-9: PHQ-9 Score PHQ-9: Total score 1 08/24/23 16:37 Depression Screening Interpretation: Negative Thrive Assessment: Date of Thrive Assessment Date Thrive assessed 08/24/23 08/24/23 15:49 Currently or been in a relationship where the following occur: no concerns reported Resp Effort & Inspection: normal respiratory effort Auscultation: clear to auscultation bilaterally Cardio Jugular venous distension: no JVD Rate: regular rate Rhythm: regular rhythm Heart sounds: S1 normal heart sound present and S2 normal heart sound present Extrem General: Yes full ROM Assessment and Plan Assessment & Plan (1) Atrial fibrillation with rapid ventricular response: Comment: HTN- laisah BP up- reg rate-worrisome, Did she go to ED as new diagnosis of AFib ETC, patient declined consulted with cardiology-Jose Eduardo- RN- saw pt Consulted with AMELIA Baxter- Cardiology very helpful, supportive, appreciated Code(s): I48.91 - Unspecified atrial fibrillation Plan: Continue diltiazem and Eliquis. The goal is heart rate control. Follow-up with Cardiology. (2) Uncontrolled hypertension: Code(s): I10 - Essential (primary) hypertension Plan: Continue hydralazine, diltiazem and lisinopril. Blood pressure goal is equal or less than 130/80. Recheck blood pressure in 3 weeks by nurse navigator. Advised to take blood pressure at home at least 3 times a week and make a diary. (3) Osteopenia: Code(s): M85.80 - Other specified disorders of bone density and structure, unspecified site Plan: Start calcium with vitamin-D. (4) Asthma: Code(s): J45.909 - Unspecified asthma, uncomplicated Plan: Continue long-acting inhaler. Use rescue inhaler as needed. Orders: Orders Comprehensive [place]. Panel Fast Today I48.91 - Unspecified atrial fibrillation Lipid Panel Today E78.5 - Hyperlipidemia, unspecified, I48.91 - Unspecified atrial fibrillation Thyroid Stimulating Hormone Today I48.91 - Unspecified atrial fibrillation Complete Blood Count Auto Diff Today I48.91 - Unspecified atrial fibrillation Medications: New cholecalciferol (vitamin D3) 25 mcg PO DAILY 90 caps 1RF 90 days calcium carbonate 600 mg PO BID 180 tabs 1RF 90 days M85.80 - Other specified disorders of bone density and structure, unspecified site Coding Level of Care Code Est Pt Level 4 (53964) Diagnoses Atrial fibrillation with rapid ventricular response I48.91 Uncontrolled hypertension I10 Osteopenia M85.80 Asthma J45.909 Additional Codes CELESTINE-7 Assessment Billing - CELESTINE-7 Assessment Tool: CELESTINE-7 Assessment 50788 ([id number]) Time Spent (min) 23
== END 2023-08-24 16:24 | disposition home or self-care (01) ==
PROVIDERS: PCP Nurse Practitioner Family; Visit Provider Internal Medicine
DX: I48.91 Unspecified atrial fibrillation (principal); I10 Essential (primary) hypertension; M85.80 Other specified disorders of bone density and structure, unspecified site; J45.909 Unspecified asthma, uncomplicated
CPT/HCPCS: 99214

== ENCOUNTER 2024-04-14 13:36 | Outpatient (REF) | payer MEDICARE, SELFPAY ==
--- OUTSIDE RECORDS SUMMARY | 2024-04-20 02:37 | XMS_ITS | Continuity of Care Document ---
Author Name [facility] Providers Care Mounter [employer] Name Role Phone [facility]ly [facility] Unavailable Unavailable Problems Problem Status Onset Date Classification Date Reported Comments Source Gallbladder calculus (disorder) Active 03/02/2016 [facility] Hypertensive disorder, systemic arterial (disorder) Active 03/02/2016 [facility] Malignant neoplasm of uterus (disorder) Active 03/02/2016 [facility] Discharge Diagnosis: Biliary colic 02/20/2016 [facility] Discharge Diagnosis: Hypertension 03/02/2016 [facility] Discharge Diagnosis: Cholelithiasis with choledocholithiasis 03/02/2016 [facility] Discharge Diagnosis: Acute gallstone pancreatitis 03/02/2016 [facility] Final: 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 03/02/2016 [facility] Final: Gastro-esophageal reflux disease without esophagitis 03/02/2016 [facility] Final: Personal history of malignant neoplasm of other parts of uterus 03/02/2016 [facility] Final: Acquired absence of both cervix and uterus 03/02/2016 [facility] Final: Allergy status to penicillin 03/02/2016 [facility] Final: Immunization not carried out because of patient refusal 03/02/2016 [facility] Medications Medication Details Route Status Patient Instructions Ordering Provider Order Date Source Acetaminophen 325 MG / Hydrocodone Bitartrate 5 MG Oral Tablet 1 Tab Tab, PO, every 6 hours, PRN as needed for pain, Qty: 10 Tab, Refills: 0, Print Requisition Active [facility] senna 8.6 mg oral tablet 1 Tab Tab, PO qHS, PRN Constipation, Refills: 0 Active [facility] amLODIPine 5 mg oral tablet 1 Tab Tab, PO qDay, Qty: 30 Tab, Refills: 0, Print Requisition Active [facility] docusate sodium 100 mg oral capsule 1 Cap Cap, PO BID, Refills: 0 Active [facility] omeprazole 20 mg oral enteric coated capsule Refills: 0 Active [facility] ondansetron 4 mg oral tablet, disintegrating 1 Tab, PO TID, PRN as needed for nausea/vomitin g, Qty: 12 Tab, Refills: 0, Print Requisition Active [facility] Acetaminophen 325 MG / Hydrocodone Bitartrate 5 MG Oral Tablet 2 Tab Tab, PO, every 6 hours, PRN as needed for pain, Qty: 20 Tab, Refills: 0, Print Requisition Active [facility] Allergies, Adverse Reactions, Alerts Substance Category Reaction Severity Reaction type Status Date Reported Comments Source penicillins Assertion Mild Drug allergy Active [facility] Immunizations Immunization Date Given Site Status Last Updated Comments So urce influenza virus vaccine, inactivated<sup>1</mcfadden p> 02/24/2016 Not Given [facility] Results Order Name Results Value Reference Range Date Interpretation Comments Source Magnesium Mg 1.9 1.6 - 2.6 02/23 [facility] Phosphorus Phosphorus 1.8 2.3 - 4.7 02/23 L [facility] Bili Direct Bili Direct 0.5 0.0 - 0.5 02/23 [facility] CMP Sodium 136 136 - 145 02/23 [facility] CMP Potassium 3.7 3.4 - 4.5 02/23 [facility] CMP Chloride 103 98 - 107 02/23 [facility] CMP CO2 26 20 - 29 02/23 [facility] CMP Glucose Level 121 70 - 100 02/23 H [facility] CMP BUN 10 10 - 20 02/23 [facility] CMP Creatinine 0.75 0.57 - 1.11 02/23 [facility] CMP BUN/Cr Ratio 13.3 02/23 NA [facility] CMP Calcium 8.9 8.4 - 10.2 02/23 [facility] CMP Protein, Total 5.7 6.4 - 8.2 02/23 L [facility] CMP Albumin 3.4 3.4 - 4.8 02/23 [facility] CMP Globulin 2.3 1.5 - 3.7 02/23 [facility] CMP A/G Ratio 1.5 1.2 - 2.8 02/23 [facility] CMP Alkphos 167 40 - 150 02/23 H [facility] CMP ALT 186 0 - 55 02/23 H [facility] CMP AST 135 5 - 34 02/23 H [facility] CMP Bili Total 0.9 0.2 - 1.2 02/23 [facility] CMP eGFR Afr/Am >60 >=60 02/23 GFR (NKDEP Calculation) [facility] CMP eGFR NonAfr/Am >60 >=60 02/23 Non- GFR (NKDEP Calculation) [facility] *Diff Auto Neut% 77.1 36.0 - 76.0 02/23 H [facility] *Diff Auto Lymph% 11.0 12.0 - 45.0 02/23 L [facility] *Diff Auto Vance% 9.7 3.0 - 12.0 02/23 [facility] *Diff Auto Eos% 1.6 0.0 - 6.0 02/23 [facility] *Diff Auto Baso% 0.6 0.0 - 2.0 02/23 [facility] *Diff Auto ABS Neut 7.9 1.4 - 9.5 02/23 [facility] CBC w/ Diff WBC 10.2 4.0 - 12.5 02/23 [facility] CBC w/ Diff RBC 4.91 3.50 - 5.30 02/23 [facility] CBC w/ Diff Hgb 13.6 12.0 - 15.5 02/23 [facility] CBC w/ Diff Hct 40.3 36.0 - 47.0 02/23 [facility] CBC w/ Diff MCV 82.2 81.0 - 97.0 02/23 [facility] CBC w/ Diff MCH 27.7 27.0 - 33.0 02/23 [facility] CBC w/ Diff MCHC 33.7 32.0 - 36.0 02/23 [facility] CBC w/ Diff RDW 13.8 11.0 - 15.0 02/23 [facility] CBC w/ Diff Plt 245.0 150.0 - 400.0 02/23 [facility] General Chemistry Phosphorus 1.8 2.3 - 4.7 02/23 [facility] General Chemistry Bili Direct 0.5 0.0 - 0.5 02/23 [facility] General Chemistry Mg 1.9 1.6 - 2.6 02/23 [facility] General Chemistry Protein, Total 5.7 6.4 - 8.2 02/23 [facility] General Chemistry Calcium 8.9 8.4 - 10.2 02/23 [facility] General Chemistry CO2 26 20 - 29 02/23 [facility] General Chemistry Chloride 103 98 - 107 02/23 [facility] General Chemistry Potassium 3.7 3.4 - 4.5 02/23 [facility] General Chemistry Globulin 2.3 1.5 - 3.7 02/23 [facility] General Chemistry Albumin 3.4 3.4 - 4.8 02/23 [facility] General Chemistry Alkphos 167 40 - 150 02/23 [facility] General Chemistry BUN 10 10 - 20 02/23 [facility] General Chemistry Glucose Level 121 70 - 100 02/23 [facility] General Chemistry Sodium 136 136 - 145 02/23 [facility] General Chemistry Creatinine 0.75 0.57 - 1.11 02/23 [facility] General Chemistry AST 135 5 - 34 02/23 [facility] General Chemistry ALT 186 0 - 55 02/23 [facility] General Chemistry eGFR Afr/Am >60 >=60 mL/min/1.7 3m2 02/23 [facility] General Chemistry eGFR NonAfr/Am >60 >=60 mL/min/1.7 3m2 02/23 [facility] General Chemistry BUN/Cr Ratio 13.3 02/23 [facility] General Chemistry Bili Total 0.9 0.2 - 1.2 02/23 [facility] General Chemistry A/G Ratio 1.5 1.2 - 2.8 02/23 [facility] Hematology- CBC Eos% 1.6 0.0 - 6.0 02/23 [facility] Hematology- CBC ABS Neut 7.9 1.4 - 9.5 02/23 [facility] Hematology- CBC Baso% 0.6 0.0 - 2.0 02/23 [facility] Hematology- CBC Neut% 77.1 36.0 - 76.0 02/23 [facility] Hematology- CBC Vance% 9.7 3.0 - 12.0 02/23 [facility] Hematology- CBC Lymph% 11.0 12.0 - 45.0 02/23 [facility] Hematology- CBC RBC 4.91 3.50 - 5.30 02/23 [facility] Hematology- CBC Hgb 13.6 12.0 - 15.5 02/23 [facility] Hematology- CBC Hct 40.3 36.0 - 47.0 02/23 [facility] Hematology- CBC WBC 10.2 4.0 - 12.5 02/23 [facility] Hematology- CBC MCHC 33.7 32.0 - 36.0 02/23 [facility] Hematology- CBC RDW 13.8 11.0 - 15.0 02/23 [facility] Hematology- CBC MCH 27.7 27.0 - 33.0 02/23 [facility] Hematology- CBC Plt 245.0 150.0 - 400.0 02/23 [facility] Hematology- CBC MCV 82.2 81.0 - 97.0 02/23 [facility] Magnesium Mg 2.0 1.6 - 2.6 02/22 [facility] Lipase Lipase 17 8 - 78 02/22 [facility] Liver Panel Protein, Total 6.1 6.4 - 8.2 02/22 L [facility] Liver Panel Albumin 3.7 3.4 - 4.8 02/22 [facility] Liver Panel Globulin 2.4 1.5 - 3.7 02/22 [facility] Liver Panel A/G Ratio 1.5 1.2 - 2.8 02/22 [facility] Liver Panel Alkphos 169 40 - 150 02/22 H [facility] Liver Panel ALT 224 0 - 55 02/22 H [facility] Liver Panel AST 280 5 - 34 02/22 H [facility] Liver Panel Bili Total 3.3 0.2 - 1.2 02/22 H [facility] Liver Panel Bili Direct 2.4 0.0 - 0.5 02/22 H [facility] Renal Pnl Sodium 137 136 - 145 02/22 [facility] Renal Pnl Potassium 3.7 3.4 - 4.5 02/22 [facility] Renal Pnl Chloride 102 98 - 107 02/22 [facility] Renal Pnl CO2 22 20 - 29 02/22 [facility] Renal Pnl BUN 8 10 - 20 02/22 L [facility] Renal Pnl Creatinine 0.67 0.57 - 1.11 02/22 [facility] Renal Pnl Glucose Level 71 70 - 100 02/22 [facility] Renal Pnl BUN/Cr Ratio 11.9 02/22 NA [facility] Renal Pnl Calcium 8.9 8.4 - 10.2 02/22 [facility] Renal Pnl Phosphorus 3.3 2.3 - 4.7 02/22 [facility] Renal Pnl Albumin 3.7 3.4 - 4.8 02/22 [facility] Renal Pnl eGFR Afr/Am >60 >=60 02/22 GFR (NKDEP Calculation) [facility] Renal Pnl eGFR NonAfr/Am >60 >=60 02/22 Non- GFR (NKDEP Calculation) [facility] *Diff Auto Neut% 78.5 36.0 - 76.0 02/22 H [facility] *Diff Auto Lymph% 10.0 12.0 - 45.0 02/22 L [facility] *Diff Auto Vance% 9.9 3.0 - 12.0 02/22 [facility] *Diff Auto Eos% 0.6 0.0 - 6.0 02/22 [facility] *Diff Auto Baso% 1.0 0.0 - 2.0 02/22 [facility] *Diff Auto ABS Neut 7.0 1.4 - 9.5 02/22 [facility] CBC w/ Diff WBC 9.0 4.0 - 12.5 02/22 [facility] CBC w/ Diff RBC 5.13 3.50 - 5.30 02/22 [facility] CBC w/ Diff Hgb 14.1 12.0 - 15.5 02/22 [facility] CBC w/ Diff Hct 42.9 36.0 - 47.0 02/22 [facility] CBC w/ Diff MCV 83.7 81.0 - 97.0 02/22 [facility] CBC w/ Diff MCH 27.4 27.0 - 33.0 02/22 [facility] CBC w/ Diff MCHC 32.7 32.0 - 36.0 02/22 [facility] CBC w/ Diff RDW 13.6 11.0 - 15.0 02/22 [facility] CBC w/ Diff Plt 245.0 150.0 - 400.0 02/22 [facility] General Chemistry BUN/Cr Ratio 11.9 02/22 [facility] General Chemistry Albumin 3.7 3.4 - 4.8 02/22 [facility] General Chemistry Phosphorus 3.3 2.3 - 4.7 02/22 [facility] General Chemistry Glucose Level 71 70 - 100 02/22 [facility] General Chemistry eGFR NonAfr/Am >60 >=60 mL/min/1.7 3m2 02/22 [facility] General Chemistry eGFR Afr/Am >60 >=60 mL/min/1.7 3m2 02/22 [facility] General Chemistry Calcium 8.9 8.4 - 10.2 02/22 [facility] General Chemistry CO2 22 20 - 29 02/22 [facility] General Chemistry Chloride 102 98 - 107 02/22 [facility] General Chemistry Potassium 3.7 3.4 - 4.5 02/22 [facility] General Chemistry Sodium 137 136 - 145 02/22 [facility] General Chemistry Creatinine 0.67 0.57 - 1.11 02/22 [facility] General Chemistry BUN 8 10 - 20 02/22 [facility] General Chemistry Mg 2.0 1.6 - 2.6 02/22 [facility] General Chemistry Lipase 17 8 - 78 02/22 [facility] General Chemistry Bili Total 3.3 0.2 - 1.2 02/22 [facility] General Chemistry Albumin 3.7 3.4 - 4.8 02/22 [facility] General Chemistry Globulin 2.4 1.5 - 3.7 02/22 [facility] General Chemistry A/G Ratio 1.5 1.2 - 2.8 02/22 [facility] General Chemistry Bili Direct 2.4 0.0 - 0.5 02/22 [facility] General Chemistry Protein, Total 6.1 6.4 - 8.2 02/22 [facility] General Chemistry AST 280 5 - 34 02/22 [facility] General Chemistry ALT 224 0 - 55 02/22 [facility] General Chemistry Alkphos 169 40 - 150 02/22 [facility] Hematology- CBC RBC 5.13 3.50 - 5.30 02/22 [facility] Hematology- CBC Hgb 14.1 12.0 - 15.5 02/22 [facility] Hematology- CBC Hct 42.9 36.0 - 47.0 02/22 [facility] Hematology- CBC MCV 83.7 81.0 - 97.0 02/22 [facility] Hematology- CBC MCH 27.4 27.0 - 33.0 02/22 [facility] Hematology- CBC MCHC 32.7 32.0 - 36.0 02/22 [facility] Hematology- CBC RDW 13.6 11.0 - 15.0 02/22 [facility] Hematology- CBC Plt 245.0 150.0 - 400.0 02/22 [facility] Hematology- CBC WBC 9.0 4.0 - 12.5 02/22 [facility] Hematology- CBC Lymph% 10.0 12.0 - 45.0 02/22 [facility] Hematology- CBC Neut% 78.5 36.0 - 76.0 02/22 [facility] Hematology- CBC Vance% 9.9 3.0 - 12.0 02/22 [facility] Hematology- CBC Baso% 1.0 0.0 - 2.0 02/22 [facility] Hematology- CBC Eos% 0.6 0.0 - 6.0 02/22 [facility] Hematology- CBC ABS Neut 7.0 1.4 - 9.5 02/22 [facility] PT PT 12.2 9.4 - 12.5 02/21 [facility] PT INR 1.14 0.87 - 1.14 02/21 PROPHYLAXIS AND TREATMENT OF: Venous thrombosis, pulmonary embolism (2.0 - 3.0); PREVENTION OF SYSTEMIC EMBOLISM FROM: Tissue heart valves (2.0 - 3.0); Acute myocardial infarction (2.0 - 3.0); Valvular heart disease (2.0 -3.0); Atrial fibrillation (2.0-3.0), MECHANICAL PROSTHETIC VALVES (high risk) (2.5-3.5). [facility] HgbA1C HgbA1C 5.3 4.0 - 6.0 02/21 The most common types of heterozygous hemoglobin variants do not interfere with this assay. Hemoglobin F, however, causes a negative bias. [facility] HgbA1C Est Mean Bld Glu 105 02/21 NA [facility] Lipase Lipase 39 8 - 78 02/21 [facility] Lipid Panel Cholesterol 193 - <=200 02/21 [facility] Lipid Panel Triglyceride s 79 - <=150 02/21 [facility] Lipid Panel HDL 48 40 - 60 02/21 [facility] Lipid Panel Cholest/HDL Ratio 4.0 - <=5.0 02/21 average risk: 3.4; low risk: 4.0; average risk: 5.0; moderate risk (2x): 9.5; high risk (3x): 23.0 [facility] Lipid Panel LDL 130 - <=130 02/21 [facility] Lipid Panel VLDL 16 6 - 40 02/21 [facility] Lipid Panel LDL/HDL 2.7 - <=3.0 02/21 Greater than 5: High risk. Less than 3: Low risk. Between 3 and 5: Intermediate risk. [facility] Magnesium Mg 1.9 1.6 - 2.6 02/21 [facility] Liver Panel Protein, Total 5.9 6.4 - 8.2 02/21 L [facility] Liver Panel Albumin 3.7 3.4 - 4.8 02/21 [facility] Liver Panel Globulin 2.2 1.5 - 3.7 02/21 [facility] Liver Panel A/G Ratio 1.7 1.2 - 2.8 02/21 [facility] Liver Panel Alkphos 82 40 - 150 02/21 [facility] Liver Panel ALT 41 0 - 55 02/21 [facility] Liver Panel AST 36 5 - 34 02/21 H [facility] Liver Panel Bili Total 0.6 0.2 - 1.2 02/21 [facility] Liver Panel Bili Direct 0.2 0.0 - 0.5 02/21 [facility] Renal Pnl Sodium 142 136 - 145 02/21 [facility] Renal Pnl Potassium 4.4 3.4 - 4.5 02/21 [facility] Renal Pnl Chloride 108 98 - 107 02/21 H [facility] Renal Pnl CO2 25 20 - 29 02/21 [facility] Renal Pnl BUN 9 10 - 20 02/21 L [facility] Renal Pnl Creatinine 0.64 0.57 - 1.11 02/21 [facility] Renal Pnl Glucose Level 85 70 - 100 02/21 [facility] Renal Pnl BUN/Cr Ratio 14.1 02/21 NA [facility] Renal Pnl Calcium 8.7 8.4 - 10.2 02/21 [facility] Renal Pnl Phosphorus 3.4 2.3 - 4.7 02/21 [facility] Renal Pnl Albumin 3.7 3.4 - 4.8 02/21 [facility] Renal Pnl eGFR Afr/Am >60 >=60 02/21 GFR (NKDEP Calculation) [facility] Renal Pnl eGFR NonAfr/Am >60 >=60 02/21 Non- GFR (NKDEP Calculation) [facility] TSH/FT4 TSH 2.167 0.350 - 4.940 02/21 Clinical condition: Euthyroid: TSH 0.350-4.940; Hyperthyroid: TSH <0.350; Hypothyroid: TSH >4.940. Suspected hyperthyroidi sm based on low TSH levels should be confirmed with additional thyroid function testing along with other clinical information. [facility] CBC w/ Diff WBC 7.0 4.0 - 12.5 02/21 [facility] CBC w/ Diff RBC 5.07 3.50 - 5.30 02/21 [facility] CBC w/ Diff Hgb 14.0 12.0 - 15.5 02/21 [facility] CBC w/ Diff Hct 42.3 36.0 - 47.0 02/21 [facility] CBC w/ Diff MCV 83.5 81.0 - 97.0 02/21 [facility] CBC w/ Diff MCH 27.5 27.0 - 33.0 02/21 [facility] CBC w/ Diff MCHC 33.0 32.0 - 36.0 02/21 [facility] CBC w/ Diff RDW 13.7 11.0 - 15.0 02/21 [facility] CBC w/ Diff Plt 224.0 150.0 - 400.0 02/21 [facility] *Diff Auto Neut% 61.5 36.0 - 76.0 02/21 [facility] *Diff Auto Lymph% 22.9 12.0 - 45.0 02/21 [facility] *Diff Auto Vance% 7.3 3.0 - 12.0 02/21 [facility] *Diff Auto Eos% 6.2 0.0 - 6.0 02/21 [facility] *Diff Auto Baso% 2.1 0.0 - 2.0 02/21 [facility] *Diff Auto ABS Neut 4.3 1.4 - 9.5 02/21 [facility] Coagulation INR 1.14 0.87 - 1.14 02/21 [facility] Coagulation PT 12.2 9.4 - 12.5 02/21 [facility] General Chemistry eGFR NonAfr/Am >60 >=60 mL/min/1.7 3m2 02/21 [facility] General Chemistry eGFR Afr/Am >60 >=60 mL/min/1.7 3m2 02/21 [facility] General Chemistry Calcium 8.7 8.4 - 10.2 02/21 [facility] General Chemistry Phosphorus 3.4 2.3 - 4.7 02/21 [facility] General Chemistry BUN/Cr Ratio 14.1 02/21 [facility] General Chemistry Glucose Level 85 70 - 100 02/21 [facility] General Chemistry BUN 9 10 - 20 02/21 [facility] General Chemistry Creatinine 0.64 0.57 - 1.11 02/21 [facility] General Chemistry Potassium 4.4 3.4 - 4.5 02/21 [facility] General Chemistry CO2 25 20 - 29 02/21 [facility] General Chemistry Sodium 142 136 - 145 02/21 [facility] General Chemistry Chloride 108 98 - 107 02/21 [facility] General Chemistry Mg 1.9 1.6 - 2.6 02/21 [facility] General Chemistry Bili Direct 0.2 0.0 - 0.5 02/21 [facility] General Chemistry Protein, Total 5.9 6.4 - 8.2 02/21 [facility] General Chemistry Bili Total 0.6 0.2 - 1.2 02/21 [facility] General Chemistry A/G Ratio 1.7 1.2 - 2.8 02/21 [facility] General Chemistry Globulin 2.2 1.5 - 3.7 02/21 [facility] General Chemistry ALT 41 0 - 55 02/21 [facility] General Chemistry Alkphos 82 40 - 150 02/21 [facility] General Chemistry AST 36 5 - 34 02/21 [facility] General Chemistry Lipase 39 8 - 78 02/21 [facility] Hematology- CBC ABS Neut 4.3 1.4 - 9.5 02/21 [facility] Hematology- CBC Baso% 2.1 0.0 - 2.0 02/21 [facility] Hematology- CBC Eos% 6.2 0.0 - 6.0 02/21 [facility] Hematology- CBC Lymph% 22.9 12.0 - 45.0 02/21 [facility] Hematology- CBC Neut% 61.5 36.0 - 76.0 02/21 [facility] Hematology- CBC Vance% 7.3 3.0 - 12.0 02/21 [facility] Hematology- CBC Plt 224.0 150.0 - 400.0 02/21 [facility] Hematology- CBC Hct 42.3 36.0 - 47.0 02/21 [facility] Hematology- CBC WBC 7.0 4.0 - 12.5 02/21 [facility] Hematology- CBC RBC 5.07 3.50 - 5.30 02/21 [facility] Hematology- CBC Hgb 14.0 12.0 - 15.5 02/21 [facility] Hematology- CBC MCHC 33.0 32.0 - 36.0 02/21 [facility] Hematology- CBC RDW 13.7 11.0 - 15.0 02/21 [facility] Hematology- CBC MCH 27.5 27.0 - 33.0 02/21 [facility] Hematology- CBC MCV 83.5 81.0 - 97.0 02/21 [facility] Special Chemistry TSH 2.167 0.350 - 4.940 02/21 [facility] Special Chemistry Est Mean Bld Glu 105 02/21 [facility] Special Chemistry HgbA1C 5.3 4.0 - 6.0 02/21 [facility] MRSA Surveillanc e Screen MRSA Surveillance Screen No Methicilli n Resistant Staph aureus isolated.< br>No Methicilli n Resistant Staph aureus isolated.< br> 02/20 [facility] MRSA Surveillanc e Screen MRSA Surveillance Screen No Methicilli n Resistant Staph aureus isolated.< br>No Methicilli n Resistant Staph aureus isolated.< br> 02/20 [facility] MRSA Surveillanc e Screen MRSA Surveillance Screen Microbiolo gy PROCEDURE: MRSA Surveillan ce Screen SOURCE: Nares Admit COLLECTED: 02/21/2016 14:21 PDT STARTED: 02/21/2016 16:54 PDT [id number] FINAL REPORT FINAL REPORT Verified:1 08:51 PDT No Methicilli n Resistant Staph aureus isolated. RUBINA WOOD [id number](SJ R) 02/20 [facility] Lipase Lipase 1477 8 - 78 02/20 H [facility] CMP Sodium 139 136 - 145 02/20 [facility] CMP Potassium 4.1 3.4 - 4.5 02/20 [facility] CMP Chloride 102 98 - 107 02/20 [facility] CMP CO2 29 20 - 29 02/20 [facility] CMP Glucose Level 102 70 - 100 02/20 H [facility] CMP BUN 15 10 - 20 02/20 [facility] CMP Creatinine 0.76 0.57 - 1.11 02/20 [facility] CMP BUN/Cr Ratio 19.7 02/20 NA [facility] CMP Calcium 9.6 8.4 - 10.2 02/20 [facility] CMP Protein, Total 6.9 6.4 - 8.2 02/20 [facility] CMP Albumin 4.1 3.4 - 4.8 02/20 [facility] CMP Globulin 2.8 1.5 - 3.7 02/20 [facility] CMP A/G Ratio 1.5 1.2 - 2.8 02/20 [facility] CMP Alkphos 82 40 - 150 02/20 [facility] CMP ALT 48 0 - 55 02/20 [facility] CMP AST 82 5 - 34 02/20 H [facility] CMP Bili Total 0.7 0.2 - 1.2 02/20 [facility] CMP eGFR Afr/Am >60 >=60 02/20 GFR (NKDEP Calculation) [facility] CMP eGFR NonAfr/Am >60 >=60 02/20 Non- GFR (NKDEP Calculation) [facility] UA w/ Micro UGlucose Negative Negative 02/20 [facility] UA w/ Micro UProtein Negative Negative 02/20 [facility] UA w/ Micro UBilirubin Negative Negative 02/20 [facility] UA w/ Micro UA Urobilinogen <2.0 <2.0 02/20 [facility] UA w/ Micro UpH 7 5 - 8 02/20 [facility] UA w/ Micro UBlood Negative Negative 02/20 [facility] UA w/ Micro UKetones Negative Negative 02/20 [facility] UA w/ Micro UNitrite Neg Neg 02/20 [facility] UA w/ Micro ULeukocyte Esterase Negative Negative 02/20 [facility] UA w/ Micro Appearance Slightly Hazy Clear 02/20 ABN [facility] UA w/ Micro Specific Ga[place]ra 1.012 1.005 - 1.025 02/20 [facility] UA w/ Micro Color Yellow Colorless 02/20 [facility] UA w/ Micro URBC 0-2 02/20 [facility] UA w/ Micro Urine WBCs 0-2 02/20 [facility] UA w/ Micro UBacteria Rare 02/20 [facility] UA w/ Micro UA Squam Epithelial Many 02/20 [facility] UA w/ Micro UMucous Moderate 02/20 [facility] CBC w/ Diff WBC 9.9 4.0 - 12.5 02/20 [facility] CBC w/ Diff RBC 5.44 3.50 - 5.30 02/20 H [facility] CBC w/ Diff Hgb 15.1 12.0 - 15.5 02/20 [facility] CBC w/ Diff Hct 45.2 36.0 - 47.0 02/20 [facility] CBC w/ Diff MCV 83.0 81.0 - 97.0 02/20 [facility] CBC w/ Diff MCH 27.7 27.0 - 33.0 02/20 [facility] CBC w/ Diff MCHC 33.4 32.0 - 36.0 02/20 [facility] CBC w/ Diff RDW 13.4 11.0 - 15.0 02/20 [facility] CBC w/ Diff Plt 264.0 150.0 - 400.0 02/20 [facility] *Diff Auto Neut% 65.4 36.0 - 76.0 02/20 [facility] *Diff Auto Lymph% 21.6 12.0 - 45.0 02/20 [facility] *Diff Auto Vance% 7.0 3.0 - 12.0 02/20 [facility] *Diff Auto Eos% 4.8 0.0 - 6.0 02/20 [facility] *Diff Auto Baso% 1.2 0.0 - 2.0 02/20 [facility] *Diff Auto ABS Neut 6.5 1.4 - 9.5 02/20 [facility] Urinalysis UGlucose Negative (02/21/16 8:57 AM) Negative 02/20 [facility] Urinalysis Appearance Slightly Hazy *ABN* (02/21/16 8:57 AM) Clear 02/20 [facility] Urinalysis UBlood Negative (02/21/16 8:57 AM) Negative 02/20 [facility] Urinalysis Specific [place] 1.012 1.005 - 1.025 02/20 [facility] Urinalysis UBilirubin Negative (02/21/16 8:57 AM) Negative 02/20 [facility] Urinalysis UKetones Negative (02/21/16 8:57 AM) Negative 02/20 [facility] Urinalysis UA Urobilinogen <2.0 (02/21/16 8:57 AM) <2.0 02/20 [facility] Urinalysis UBacteria Rare (02/21/16 8:57 AM) 02/20 [facility] Urinalysis Urine WBCs 0-2 (02/21/16 8:57 AM) 02/20 [facility] Urinalysis URBC 0-2 (02/21/16 8:57 AM) 02/20 [facility] Urinalysis ULeukocyte Esterase Negative (02/21/16 8:57 AM) Negative 02/20 [facility] Urinalysis UpH 7 5 - 8 02/20 [facility] Urinalysis UNitrite Neg (02/21/16 8:57 AM) Neg 02/20 [facility] Urinalysis UProtein Negative (02/21/16 8:57 AM) Negative 02/20 [facility] Urinalysis UMucous Moderate (02/21/16 8:57 AM) 02/20 [facility] Urinalysis UA Squam Epithelial Many (02/21/16 8:57 AM) 02/20 [facility] Urinalysis Color Yellow (02/21/16 8:57 AM) Colorless 02/20 [facility] Culture Urine Culture Urine >100,000 cfu/ml Mixed stuart
> 100,000 cfu/ml Mixed stuart
W hen performed, URI values are reported in mcg/ml.
02/20 [facility] [facility] Urine Culture Urine >100,000 cfu/ml Mixed stuart
> 100,000 cfu/ml Mixed stuart
W hen performed, URI values are reported in mcg/ml.
02/20 [facility] Urine Cult Urine Cult Microbiolo gy PROCEDURE: Urine Culture SOURCE: Urine COLLECTED: 02/21/2016 08:57 PDT STARTED: 02/21/2016 09:59 PDT [id number] FINAL REPORT FINAL REPORT Verified:1 12:37 PDT >100,000 cfu/ml Mixed stuart Culture Urine Interpreti ve Results When performed, URI values are reported in mcg/ml. RUBINA WOOD [id number](SJ R) 02/20 [facility] General Chemistry Lipase 1477 8 - 78 02/20 [facility] CMP Sodium 139 136 - 145 02/12 [facility] CMP Potassium 3.8 3.4 - 4.5 02/12 [facility] CMP Chloride 100 98 - 107 02/12 [facility] CMP CO2 25 20 - 29 02/12 [facility] CMP Glucose Level 173 70 - 100 02/12 H [facility] CMP BUN 13 10 - 20 02/12 [facility] CMP Creatinine 0.71 0.57 - 1.11 02/12 [facility] CMP BUN/Cr Ratio 18.3 02/12 NA [facility] CMP Calcium 9.6 8.4 - 10.2 02/12 [facility] CMP Protein, Total 7.8 6.4 - 8.2 02/12 [facility] CMP Albumin 4.7 3.4 - 4.8 02/12 [facility] CMP Globulin 3.1 1.5 - 3.7 02/12 [facility] CMP A/G Ratio 1.5 1.2 - 2.8 02/12 [facility] CMP Alkphos 98 40 - 150 02/12 [facility] CMP ALT 14 0 - 55 02/12 [facility] CMP AST 19 5 - 34 02/12 [facility] CMP Bili Total 0.7 0.2 - 1.2 02/12 [facility] CMP eGFR Afr/Am >60 >=60 02/12 GFR (NKDEP Calculation) [facility] CMP eGFR NonAfr/Am >60 >=60 02/12 Non- GFR (NKDEP Calculation) [facility] Lipase Lipase 19 8 - 78 02/12 [facility] CBC w/ Diff WBC 13.8 4.0 - 12.5 02/12 H [facility] CBC w/ Diff RBC 5.72 3.50 - 5.30 02/12 H [facility] CBC w/ Diff Hgb 15.8 12.0 - 15.5 02/12 H [facility] CBC w/ Diff Hct 47.2 36.0 - 47.0 02/12 H [facility] CBC w/ Diff MCV 82.6 81.0 - 97.0 02/12 [facility] CBC w/ Diff MCH 27.7 27.0 - 33.0 02/12 [facility] CBC w/ Diff MCHC 33.5 32.0 - 36.0 02/12 [facility] CBC w/ Diff RDW 13.9 11.0 - 15.0 02/12 [facility] CBC w/ Diff Plt 245.0 150.0 - 400.0 02/12 [facility] *Diff Auto Neut% 88.2 36.0 - 76.0 02/12 H [facility] *Diff Auto Lymph% 7.4 12.0 - 45.0 02/12 L [facility] *Diff Auto Vance% 3.6 3.0 - 12.0 02/12 [facility] *Diff Auto Eos% 0.3 0.0 - 6.0 02/12 [facility] *Diff Auto Baso% 0.5 0.0 - 2.0 02/12 [facility] *Diff Auto ABS Neut 12.2 1.4 - 9.5 02/12 H [facility] UA w/ Micro UGlucose 150 Negative 02/12 ABN [facility] UA w/ Micro UProtein Negative Negative 02/12 [facility] UA w/ Micro UBilirubin Negative Negative 02/12 [facility] UA w/ Micro UA Urobilinogen <2.0 <2.0 02/12 [facility] UA w/ Micro UpH 8 5 - 8 02/12 [facility] UA w/ Micro UBlood Negative Negative 02/12 [facility] UA w/ Micro UKetones 20 Negative 02/12 ABN [facility] UA w/ Micro UNitrite Neg Neg 02/12 [facility] UA w/ Micro ULeukocyte Esterase Negative Negative 02/12 [facility] UA w/ Micro Appearance Clear Clear 02/12 [facility] UA w/ Micro Specific Gaastra 1.010 1.005 - 1.025 02/12 [facility] UA w/ Micro Color Straw Colorless 02/12 [facility] UA w/ Micro URBC 0-2 02/12 [facility] UA w/ Micro Urine WBCs 0-2 02/12 [facility] UA w/ Micro UBacteria None Seen 02/12 [facility] UA w/ Micro UA Squam Epithelial Rare 02/12 [facility] General Chemistry Lipase 19 8 - 78 02/12 [facility] General Chemistry Alkphos 98 40 - 150 02/12 [facility] General Chemistry Glucose Level 173 70 - 100 02/12 [facility] General Chemistry BUN 13 10 - 20 02/12 [facility] General Chemistry Protein, Total 7.8 6.4 - 8.2 02/12 [facility] General Chemistry Albumin 4.7 3.4 - 4.8 02/12 [facility] General Chemistry Calcium 9.6 8.4 - 10.2 02/12 [facility] General Chemistry Potassium 3.8 3.4 - 4.5 02/12 [facility] General Chemistry Chloride 100 98 - 107 02/12 [facility] General Chemistry ALT 14 0 - 55 02/12 [facility] General Chemistry AST 19 5 - 34 02/12 [facility] General Chemistry Creatinine 0.71 0.57 - 1.11 02/12 [facility] General Chemistry Sodium 139 136 - 145 02/12 [facility] General Chemistry CO2 25 20 - 29 02/12 [facility] General Chemistry A/G Ratio 1.5 1.2 - 2.8 02/12 [facility] General Chemistry BUN/Cr Ratio 18.3 02/12 [facility] General Chemistry Bili Total 0.7 0.2 - 1.2 02/12 [facility] General Chemistry Globulin 3.1 1.5 - 3.7 02/12 [facility] General Chemistry eGFR Afr/Am >60 >=60 mL/min/1.7 3m2 02/12 [facility] General Chemistry eGFR NonAfr/Am >60 >=60 mL/min/1.7 3m2 02/12 [facility] Hematology- CBC ABS Neut 12.2 1.4 - 9.5 02/12 [facility] Hematology- CBC Neut% 88.2 36.0 - 76.0 02/12 [facility] Hematology- CBC Lymph% 7.4 12.0 - 45.0 02/12 [facility] Hematology- CBC Eos% 0.3 0.0 - 6.0 02/12 [facility] Hematology- CBC Vance% 3.6 3.0 - 12.0 02/12 [facility] Hematology- CBC Baso% 0.5 0.0 - 2.0 02/12 [facility] Hematology- CBC Plt 245.0 150.0 - 400.0 02/12 [facility] Hematology- CBC RDW 13.9 11.0 - 15.0 02/12 [facility] Hematology- CBC MCH 27.7 27.0 - 33.0 02/12 [facility] Hematology- CBC MCV 82.6 81.0 - 97.0 02/12 [facility] Hematology- CBC Hct 47.2 36.0 - 47.0 02/12 [facility] Hematology- CBC MCHC 33.5 32.0 - 36.0 02/12 [facility] Hematology- CBC Hgb 15.8 12.0 - 15.5 02/12 [facility] Hematology- CBC RBC 5.72 3.50 - 5.30 02/12 [facility] Hematology- CBC WBC 13.8 4.0 - 12.5 02/12 [facility] Urinalysis UBacteria None Seen (02/13/16 7:53 AM) 02/12 [facility] Urinalysis URBC 0-2 (02/13/16 7:53 AM) 02/12 [facility] Urinalysis UA Squam Epithelial Rare (02/13/16 7:53 AM) 02/12 [facility] Urinalysis UProtein Negative (02/13/16 7:53 AM) Negative 02/12 [facility] Urinalysis UA Urobilinogen <2.0 (02/13/16 7:53 AM) <2.0 02/12 [facility] Urinalysis UNitrite Neg (02/13/16 7:53 AM) Neg 02/12 [facility] Urinalysis Urine WBCs 0-2 (02/13/16 7:53 AM) 02/12 [facility] Urinalysis ULeukocyte Esterase Negative (02/13/16 7:53 AM) Negative 02/12 [facility] Urinalysis UpH 8 5 - 8 02/12 [facility] Urinalysis UBlood Negative (02/13/16 7:53 AM) Negative 02/12 [facility] Urinalysis Specific Gaastra 1.010 1.005 - 1.025 02/12 [facility] Urinalysis UKetones 20 *ABN* (02/13/16 7:53 AM) Negative 02/12 [facility] Urinalysis UBilirubin Negative (02/13/16 7:53 AM) Negative 02/12 [facility] Urinalysis UGlucose 150 *ABN* (02/13/16 7:53 AM) Negative 02/12 [facility] Urinalysis Color Straw (02/13/16 7:53 AM) Colorless 02/12 [facility] Urinalysis Appearance Clear (02/13/16 7:53 AM) Clear 02/12 [facility] Pathology Reports Report Value Date Source Surgical Pathology Report Surgical Pathology Report Collected Date/Time Received Date/Time Accession Number 02/23/2016 9:36:00 02/25/2016 8:23:00 PDT [id number] Diagnosis GALLBLADDER: 1. CHOLELITHIASIS 2. CHRONIC CHOLECYSTITIS 3. NO EVIDENCE OF ATYPIA Yonatan Kaur MD (Electronically signed) Verified: 02/26/16 12:27 AWM/AT Clinical Information Pre-op diagnosis: gallstones Procedure: laparoscopic cholecystectomy Clinical History: gallstones Specimen Submitted Gallbladder Gross Description Specimen consists of a gallbladder measuring 5 x 4 x 3 cm. The serosal surface is smooth and glistening and cut sections show stones ranging up to 0.3 cm in diameter. Direct Support Professional sections are submitted. AWM.ks Microscopic Description Gallbladder shows blunting of villi and Rokitansky sinus formation. AWM/at-1 RUBINA WOOD [id number]([facility]) 02/23/2016 [facility] Diagnostic Reports Report Value Date Source XR Cholangio/Pancreat in OR PATIENT: RUBINA WOOD Referring: WILLIAM FARAH AKBAR ALMEIDA : 1945 Age: 70 Gender: F MARIN: [phone] Date of Exam: 02/23/2016 at 9:28 Room # 2201 Patient Type: IN PROCEDURE: XR CHOLANGIO/PANC INTRAOP INDICATIONS: abd pain CONCLUSION: 1. Satisfactory intraoperative cholangiogram without evidence of retained calculi. Modest biliary ductal dilatation is present. [place] [facility] [place] BIL[place]PANCREATIC DUCT, 02/22/2016, 12:55. FINDINGS: BILIARY DUCTS: Extrahepatic and central intrahepatic ducts are visualized. No filling defects or stricture. Normal biliary to bowel transit of injected contrast. Moderate dilatation of the extrahepatic ducts are noted. Contrast is seen to flow into the duodenum. OTHER: Negative. Dictated by: Travis Starr M.D. on 02/23/2016 at 10:02 Approved by: Travis Starr M.D. on 02/23/2016 at 10:02 * * * F I N A L * * * Dictated by: Travis Starr MD Electronically signed by: Travis Starr MD Transcribed by: ID, , , S: 02/23/2016 10:02 * * * F I N A L * * * 02/23/2016 [facility] XR ERCP Biliary+Pancreatic Duct PATIENT: RUBINA WOOD Referring: LESTER ALLEN AKBAR ALMEIDA : 1945 Age: 70 Gender: F MARIN: [phone] Date of Exam: 02/22/2016 at 12:55 Room # 2201 Patient Type: IN [facility] time: 15seconds Isovue 370/25mL PROCEDURE: XR ERCP, ENDOSCOPIC INDICATIONS: pain CONCLUSION: Limited spot film images obtained during an ERCP procedure as described. TECHNIQUE: Multiple spot films were obtained by the cooker mechanic during an ERCP procedure. The procedural report will be dictated by the cooker mechanic. COMPARISON: None. FINDINGS: Spot film images demonstrate the endoscope obscuring a portion of the extrahepatic or biliary ducts. Contrast material within the ducts noted. Full evaluation of the biliary ductal system is not possible based on these limited images. Images demonstrate balloon sweeping of the duct. Please see procedural report for full description. Dictated by: Tha Earl M.D. on 02/22/2016 at 14:37 Approved by: Tha Earl M.D. on 02/22/2016 at 14:39 * * * F I N A L * * * Dictated by: Tha Earl MD Electronically signed by: Tha Earl MD Transcribed by: ANNA, , , S: 02/22/2016 14:39 * * * F I N A L * * * 02/22/2016 [facility] XR Chest 1 View Portable PATIENT: RUBINA WOOD Referring: AKBAR ALMEIDA EVERT ERWIN : 1945 Age: 70 Gender: F MARIN: [phone] Date of Exam: 02/22/2016 at 10:34 Room # 2201 Patient Type: IN PROCEDURE: XR CHEST, 1 VIEW INDICATIONS: pre-op CONCLUSION: Unremarkable chest COMPARISON: None. FINDINGS: LUNGS: No significant pulmonary parenchymal abnormalities. VASCULATURE: Unremarkable pulmonary vasculature. CARDIAC: No cardiac silhouette abnormality or cardiomegaly. MEDIASTINUM: No visible mass or adenopathy. PLEURA: No effusion, pleural thickening, or pneumothorax. BONES: No acute fracture or visible osseous lesion. OTHER: Negative. Dictated by: Tha Earl M.D. on 02/22/2016 at 11:33 Approved by: Tha Earl M.D. on 02/22/2016 at 11:33 * * * F I N A L * * * Dictated by: Tha Earl MD Electronically signed by: Tha Earl MD Transcribed by: ANNA, , , S: 02/22/2016 11:33 * * * F I N A L * * * 02/22/2016 [facility] US Abdomen Limited PATIENT: JOSÉ LUIS WOOD Referring: BRAN MURILLO - : 1945 Age: 70 Gender: F MARIN: [id number] Date of Exam: 02/21/2016 at 9:09 Room # E015 Patient Type: ER PROCEDURE: US ABDOMEN LIMITED INDICATIONS: RUQ abd pain CONCLUSION: 1. Cholelithiasis and choledocholithiasis with thickening of the gallbladder wall and biliary dilatation. 2. Borderline hepatomegaly with a small right hepatic cyst TECHNIQUE: High resolution sonographic examination was performed of the right upper abdomen. [place] [facility] [place], 02/13/2016, 8:22. FINDINGS: LIVER: Borderline hepatomegaly measuring 16.1 cm in superior-inferior diameter. There is a 1.0 cm cyst in the right hepatic lobe. BILIARY: Numerous small gallstones within the gallbladder lumen with mild thickening of the gallbladder wall at 3.4 mm. There is evidence of choledocholithiasis with a 4.3 mm stone within the common bile duct. The common bile duct is dilated to 10 mm. PANCREAS: No visible mass, abnormal atrophy, or ductal dilatation. RIGHT KIDNEY: No mass or obstruction. The right kidney measures 10.7 cm in length. Dictated by: Tha Earl M.D. on 02/21/2016 at 10:02 Approved by: Tha Earl M.D. on 02/21/2016 at 10:06 * * * F I N A L * * * Dictated by: Tha Earl MD Electronically signed by: Tha Earl MD Transcribed by: ID, , , S: 02/21/2016 10:06 * * * F I N A L * * * 02/21/2016 [facility] US Abdomen Limited PATIENT: JOSÉ LUIS WOOD RGARET Referring: KENJI KAYE : 1945 Age: 70 Gender: F MARIN: [phone] Date of Exam: 02/13/2016 at 8:22 Room # Patient Type: ER PROCEDURE: US ABDOMEN LIMITED INDICATIONS: Right upper quadrant pain, history of gallstones CONCLUSION: 1. Cholelithiasis. Negative for gallbladder wall thickening. 2. Mild bile duct dilatation with the common bile duct measuring 8 mm 3. Small amount of fluid in the katt hepatis near the gallbladder. TECHNIQUE: High resolution sonographic examination was performed of the right upper abdomen. COMPARISON: None. FINDINGS: LIVER: Normal size and echotexture. No significant masses. BILIARY: Cholelithiasis. Negative for gallbladder wall thickening. Small amount of fluid in the region of the adjacent katt hepatis. Mild bile duct dilatation with the common bile duct measuring 8 mm PANCREAS: Limited visualization; grossly negative RIGHT KIDNEY: No mass or obstruction. The right kidney measures 9.8 cm in length. Dictated by: Dave Ramírez M.D. on 02/13/2016 at 9:00 Approved by: Dave Ramírez M.D. on 02/13/2016 at 9:04 * * * F I N A L * * * Dictated by: Dave Ramírez MD Electronically signed by: Dave Ramírez MD Transcribed by: ID, , , S: 02/13/2016 09:04 * * * F I N A L * * * 02/13/2016 [facility] Consultation Notes Results Value Date Source [facility] [address] [place] [address] Transfer of Care Summary Please take with you to your follow-up appointment with your regular physician. Person Information Name:RUBINA WOOD :1945 12:00 AM 70 Years SEX:F (SJR) Address and Phone:[address] [place] [address] [facility] [phone] Language:Macedonian Race: Ethnicity:Non- Visit Information Date of Discharge:02/24/2016 12:30 PM LOS:003 03:59 Diagnosis:Acute gallstone pancreatitis; Cholelithiasis with choledocholithiasis; Hypertension Comment: Providers Primary Care Provider:NO PCP, [facility] Care Team Providers: Admitting Physician: Evert Erwin M.D. Attending Physician: Gina Lozano MD Consulting Physician: Lester Allen MD; William Farah MD; Benja Fall DO Referring Physician: Evert Erwin M.D. MEDICAL INFORMATION Height 163 cm Weight 77.2 kg BMI 29.06 Smoking Status Blood Pressure 136 mm Hg / 75 mm Hg Cognitive and Functional Status Admit to Tele/Monitor Allergies penicillins The following Tests Were Performed During Your Visit: Laboratory or Other Results This Visit (last charted value for your 02/21/2016 visit) PT 02/22/16 05:02:00 PT: 12.2 sec -- Normal range between ( 9.4 and 12.5 ) INR 02/22/16 05:02:00 INR: 1.14 -- Normal range between ( 0.87 and 1.14 ) Color 02/21/16 08:57:00 Color: Yellow Appearance 02/21/16 08:57:00 Appearance: Slightly Hazy Specific Gaastra 02/21/16 08:57:00 Specific Gaastra: 1.012 -- Normal range between ( 1.005 and 1.025 ) UpH 02/21/16 08:57:00 UpH: 7 -- Normal range between ( 5 and 8 ) UGlucose 02/21/16 08:57:00 UGlucose: Negative UBilirubin 02/21/16 08:57:00 UBilirubin: Negative UKetones 02/21/16 08:57:00 UKetones: Negative UBlood 02/21/16 08:57:00 UBlood: Negative UProtein 02/21/16 08:57:00 UProtein: Negative UNitrite 02/21/16 08:57:00 UNitrite: Neg ULeukocyte Esterase 02/21/16 08:57:00 ULeukocyte Esterase: Negative URBC 02/21/16 08:57:00 URBC: 0-2 UBacteria 02/21/16 08:57:00 UBacteria: Rare UMucous 02/21/16 08:57:00 UMucous: Moderate Urine WBCs 02/21/16 08:57:00 Urine WBCs: 0-2 UA Urobilinogen 02/21/16 08:57:00 UA Urobilinogen: <2.0 UA Squam Epithelial 02/21/16 08:57:00 UA Squam Epithelial: Many Micro - Cultures 02/21/16 14:21:00 MRSA Surveillance Screen: See Report 02/21/16 08:57:00 Culture Urine: See Report Micro - Misc 02/23/16 10:02:48 Report: Report US Abdomen Limited 02/21/16 09:37:48 US Abdomen Limited: US Abdomen Limited WBC 02/24/16 05:01:00 WBC: 10.2 K/uL -- Normal range between ( 4.0 and 12.5 ) RBC 02/24/16 05:01:00 RBC: 4.91 M/uL -- Normal range between ( 3.50 and 5.30 ) Hgb 02/24/16 05:01:00 Hgb: 13.6 gm/dL -- Normal range between ( 12.0 and 15.5 ) Hct 02/24/16 05:01:00 Hct: 40.3 % -- Normal range between ( 36.0 and 47.0 ) Plt 02/24/16 05:01:00 Plt: 245.0 K/uL -- Normal range between ( 150.0 and 400.0 ) MCV 02/24/16 05:01:00 MCV: 82.2 fL -- Normal range between ( 81.0 and 97.0 ) MCH 02/24/16 05:01:00 MCH: 27.7 pg -- Normal range between ( 27.0 and 33.0 ) MCHC 02/24/16 05:01:00 MCHC: 33.7 gm/dL -- Normal range between ( 32.0 and 36.0 ) RDW 02/24/16 05:01:00 RDW: 13.8 % -- Normal range between ( 11.0 and 15.0 ) ABS Neut 02/24/16 05:01:00 ABS Neut: 7.9 K/uL -- Normal range between ( 1.4 and 9.5 ) Neut% 02/24/16 05:01:00 Neut%: 77.1 % -- Normal range between ( 36.0 and 76.0 ) Lymph% 02/24/16 05:01:00 Lymph%: 11.0 % -- Normal range between ( 12.0 and 45.0 ) Vance% 02/24/16 05:01:00 Vance%: 9.7 % -- Normal range between ( 3.0 and 12.0 ) Eos% 02/24/16 05:01:00 Eos%: 1.6 % -- Normal range between ( 0.0 and 6.0 ) Baso% 02/24/16 05:01:00 Baso%: 0.6 % -- Normal range between ( 0.0 and 2.0 ) Sodium 02/24/16 05:01:00 Sodium: 136 mmol/L -- Normal range between ( 136 and 145 ) Potassium 02/24/16 05:01:00 Potassium: 3.7 mmol/L -- Normal range between ( 3.4 and 4.5 ) Chloride 02/24/16 05:01:00 Chloride: 103 mmol/L -- Normal range between ( 98 and 107 ) CO2 02/24/16 05:01:00 CO2: 26 mmol/L -- Normal range between ( 20 and 29 ) BUN 02/24/16 05:01:00 BUN: 10 mg/dL -- Normal range between ( 10 and 20 ) Creatinine 02/24/16 05:01:00 Creatinine: 0.75 mg/dL -- Normal range between ( 0.57 and 1.11 ) Calcium 02/24/16 05:01:00 Calcium: 8.9 mg/dL -- Normal range between ( 8.4 and 10.2 ) Protein, Total 02/24/16 05:01:00 Protein, Total: 5.7 gm/dL -- Normal range between ( 6.4 and 8.2 ) Albumin 02/24/16 05:01:00 Albumin: 3.4 gm/dL -- Normal range between ( 3.4 and 4.8 ) Phosphorus 02/24/16 05:01:00 Phosphorus: 1.8 mg/dL -- Normal range between ( 2.3 and 4.7 ) Mg 02/24/16 05:01:00 M.9 mg/dL -- Normal range between ( 1.6 and 2.6 ) Bili Total 02/24/16 05:01:00 Bili Total: 0.9 mg/dL -- Normal range between ( 0.2 and 1.2 ) Bili Direct 02/24/16 05:01:00 Bili Direct: 0.5 mg/dL -- Normal range between ( 0.0 and 0.5 ) ALT 02/24/16 05:01:00 ALT: 186 Units/L -- Normal range between ( 0 and 55 ) Alkphos 02/24/16 05:01:00 Alkphos: 167 Units/L -- Normal range between ( 40 and 150 ) A/G Ratio 02/24/16 05:01:00 A/G Ratio: 1.5 -- Normal range between ( 1.2 and 2.8 ) Globulin 02/24/16 05:01:00 Globulin: 2.3 gm/dL -- Normal range between ( 1.5 and 3.7 ) Glucose 02/24/16 05:01:00 Glucose Level: 121 mg/dL -- Normal range between ( 70 and 100 ) AST 02/24/16 05:01:00 AST: 135 Units/L -- Normal range between ( 5 and 34 ) Lipase Level 02/23/16 05:13:00 Lipase: 17 Units/L -- Normal range between ( 8 and 78 ) Lipase Level: Lipase eGFR Afr/Am 02/24/16 05:01:00 eGFR Afr/Am: >60 mL/min/1.73m2 eGFR NonAfr/Am 02/24/16 05:01:00 eGFR NonAfr/Am: >60 mL/min/1.73m2 BUN/Cr Ratio 02/24/16 05:01:00 BUN/Cr Ratio: 13.3 Comprehensive Metabolic Panel 02/24/16 05:01:00 Comprehensive Metabolic Panel: Comprehensive Metabolic Panel Renal Function Panel 02/23/16 05:13:00 Renal Function Panel: Renal Function Panel Cholesterol 02/22/16 05:02:00 Cholesterol: 193 mg/dL Triglycerides 02/22/16 05:02:00 Triglycerides: 79 mg/dL LDL 02/22/16 05:02:00 LDL: 130 mg/dL HDL 02/22/16 05:02:00 HDL: 48 mg/dL -- Normal range between ( 40 and 60 ) Cholest/HDL Ratio 02/22/16 05:02:00 Cholest/HDL Ratio: 4.0 VLDL 02/22/16 05:02:00 VLDL: 16 mg/dL -- Normal range between ( 6 and 40 ) LDL/HDL 02/22/16 05:02:00 LDL/HDL: 2.7 TSH 02/22/16 05:02:00 TSH: 2.167 uIU/mL -- Normal range between ( 0.350 and 4.940 ) Est Mean Bld Glu 02/22/16 05:02:00 Est Mean Bld Glu: 105 mg/dL HgbA1c 02/22/16 05:02:00 HgbA1C: 5.3 % -- Normal range between ( 4.0 and 6.0 ) Hepatic Function Panel 02/23/16 05:13:00 Hepatic Function Panel: Hepatic Function Panel XR Cholangio/Pancreat in OR 02/23/16 09:50:21 XR Cholangio/Pancreat in OR: XR Cholangio/Pancreat in OR XR ERCP Biliary+Pancreatic Duct 02/22/16 13:45:00 XR ERCP Biliary+Pancreatic Duct: XR ERCP Biliary+Pancreatic Duct XR Chest 1 View Portable 02/22/16 10:32:49 XR Chest 1 View Portable: XR Chest 1 View Portable Medication List: acetaminophen-HYDROcodone (acetaminophen-HYDROcod 325/5) 1 Tab, By mouth, every 6 hours, 3 Day, As Needed, as needed for pain, Refills: 0 amLODIPine (amLODIPine 5 mg oral tablet) 1 Tab, By mouth, once daily, Refills: 0 docusate (docusate sodium 100 mg oral capsule) 1 Cap, By mouth, twice daily, Refills: 0 omeprazole (omeprazole 20 mg oral enteric coated capsule) , Refills: 0 senna (senna 8.6 mg oral tablet) 1 Tab, By mouth, every bedtime, As Needed, Constipation, Refills: 0 Additional Information: Problems Active Uterine cancer HTN (hypertension) Gallstones Procedures Hysterectomy Fluoroscopy of Bile Ducts using Other Contrast (02/23/2016) Resection of Gallbladder, Percutaneous Endoscopic Approach (02/23/2016) Dilation of Common Bile Duct, Via Natural or Artificial Opening Endoscopic (02/22/2016) Extirpation of Matter from Common Bile Duct, Via Natural or Artificial Opening Endoscopic (02/22/2016) Immunizations influenza virus vaccine, inactivated (Not Given) Patient Education Information: Instructions Assigned: Endoscopic Retrograde Cholangiopancreatography (ERCP); Laparoscopic Cholecystectomy, Care After, [id number]; Endoscopic Retrograde Cholangiopancreatography (ERCP) Prescription List: [acetaminophen-HYDROcodone (acetaminophen-HYDROcod 325/5)] [amLODIPine (amLODIPine 5 mg oral tablet)] Medication Leaflet Names: Norvasc, acetaminophen-HYDROcod 325/5, docusate sodium oral capsule, Senna S 50 mg-8.6 mg oral tablet Follow up: With: Address: When: Follow up Liver function test repeat on 02-27-[address] caba or Dr. headley in office outpatient Within 1 to 3 days With: Address: When: Mao Caba [address] [place] [address] Business (1) Within 1 to 2 weeks With: Address: When: William Farah [address] [place] [address] Business (1) Within 1 to 2 weeks Physician Documentation/Notes: DME :None Discharge Referrals/Instructions:Pt to f/u with lab work to be done, and other f/u visits with doctors, per MD's orders. Discharge Transportation:Family 02/29/2016 [facility] [address] [place] [address] Transfer of Care Summary Please take with you to your follow-up appointment with your regular physician. Person Information Name:RUBINA WOOD :1945 12:00 AM 70 Years SEX:F ([facility]) Address and Phone:[address] [facility] [phone] Language:Macedonian Race: Ethnicity:Non- Visit Information Date of Discharge:02/24/2016 12:30 PM LOS:003 03:59 Diagnosis:Acute gallstone pancreatitis; Cholelithiasis with choledocholithiasis; Hypertension Comment: Providers Primary Care Provider:NO PCP, [facility] Care Team Providers: Admitting Physician: Evert Erwin M.D. Attending Physician: Gina Lozano MD Consulting Physician: Lester Allen MD; William Farah MD; Bejna Fall DO Referring Physician: Evert Erwin M.D. MEDICAL INFORMATION Height 163 cm Weight 77.2 kg BMI 29.06 Smoking Status Blood Pressure 136 mm Hg / 75 mm Hg Cognitive and Functional Status Admit to Tele/Monitor Allergies penicillins The following Tests Were Performed During Your Visit: Laboratory or Other Results This Visit (last charted value for your 02/21/2016 visit) PT 02/22/16 05:02:00 PT: 12.2 sec -- Normal range between ( 9.4 and 12.5 ) INR 02/22/16 05:02:00 INR: 1.14 -- Normal range between ( 0.87 and 1.14 ) Color 02/21/16 08:57:00 Color: Yellow Appearance 02/21/16 08:57:00 Appearance: Slightly Hazy Specific Gaastra 02/21/16 08:57:00 Specific Gaastra: 1.012 -- Normal range between ( 1.005 and 1.025 ) UpH 02/21/16 08:57:00 UpH: 7 -- Normal range between ( 5 and 8 ) UGlucose 02/21/16 08:57:00 UGlucose: Negative UBilirubin 02/21/16 08:57:00 UBilirubin: Negative UKetones 02/21/16 08:57:00 UKetones: Negative UBlood 02/21/16 08:57:00 UBlood: Negative UProtein 02/21/16 08:57:00 UProtein: Negative UNitrite 02/21/16 08:57:00 UNitrite: Neg ULeukocyte Esterase 02/21/16 08:57:00 ULeukocyte Esterase: Negative URBC 02/21/16 08:57:00 URBC: 0-2 UBacteria 02/21/16 08:57:00 UBacteria: Rare UMucous 02/21/16 08:57:00 UMucous: Moderate Urine WBCs 02/21/16 08:57:00 Urine WBCs: 0-2 UA Urobilinogen 02/21/16 08:57:00 UA Urobilinogen: <2.0 UA Squam Epithelial 02/21/16 08:57:00 UA Squam Epithelial: Many Micro - Cultures 02/21/16 14:21:00 MRSA Surveillance Screen: See Report 02/21/16 08:57:00 Culture Urine: See Report Micro - Misc 02/23/16 10:02:48 Report: Report US Abdomen Limited 02/21/16 09:37:48 US Abdomen Limited: US Abdomen Limited WBC 02/24/16 05:01:00 WBC: 10.2 K/uL -- Normal range between ( 4.0 and 12.5 ) RBC 02/24/16 05:01:00 RBC: 4.91 M/uL -- Normal range between ( 3.50 and 5.30 ) Hgb 02/24/16 05:01:00 Hgb: 13.6 gm/dL -- Normal range between ( 12.0 and 15.5 ) Hct 02/24/16 05:01:00 Hct: 40.3 % -- Normal range between ( 36.0 and 47.0 ) Plt 02/24/16 05:01:00 Plt: 245.0 K/uL -- Normal range between ( 150.0 and 400.0 ) MCV 02/24/16 05:01:00 MCV: 82.2 fL -- Normal range between ( 81.0 and 97.0 ) MCH 02/24/16 05:01:00 MCH: 27.7 pg -- Normal range between ( 27.0 and 33.0 ) MCHC 02/24/16 05:01:00 MCHC: 33.7 gm/dL -- Normal range between ( 32.0 and 36.0 ) RDW 02/24/16 05:01:00 RDW: 13.8 % -- Normal range between ( 11.0 and 15.0 ) ABS Neut 02/24/16 05:01:00 ABS Neut: 7.9 K/uL -- Normal range between ( 1.4 and 9.5 ) Neut% 02/24/16 05:01:00 Neut%: 77.1 % -- Normal range between ( 36.0 and 76.0 ) Lymph% 02/24/16 05:01:00 Lymph%: 11.0 % -- Normal range between ( 12.0 and 45.0 ) Vance% 02/24/16 05:01:00 Vance%: 9.7 % -- Normal range between ( 3.0 and 12.0 ) Eos% 02/24/16 05:01:00 Eos%: 1.6 % -- Normal range between ( 0.0 and 6.0 ) Baso% 02/24/16 05:01:00 Baso%: 0.6 % -- Normal range between ( 0.0 and 2.0 ) Sodium 02/24/16 05:01:00 Sodium: 136 mmol/L -- Normal range between ( 136 and 145 ) Potassium 02/24/16 05:01:00 Potassium: 3.7 mmol/L -- Normal range between ( 3.4 and 4.5 ) Chloride 02/24/16 05:01:00 Chloride: 103 mmol/L -- Normal range between ( 98 and 107 ) CO2 02/24/16 05:01:00 CO2: 26 mmol/L -- Normal range between ( 20 and 29 ) BUN 02/24/16 05:01:00 BUN: 10 mg/dL -- Normal range between ( 10 and 20 ) Creatinine 02/24/16 05:01:00 Creatinine: 0.75 mg/dL -- Normal range between ( 0.57 and 1.11 ) Calcium 02/24/16 05:01:00 Calcium: 8.9 mg/dL -- Normal range between ( 8.4 and 10.2 ) Protein, Total 02/24/16 05:01:00 Protein, Total: 5.7 gm/dL -- Normal range between ( 6.4 and 8.2 ) Albumin 02/24/16 05:01:00 Albumin: 3.4 gm/dL -- Normal range between ( 3.4 and 4.8 ) Phosphorus 02/24/16 05:01:00 Phosphorus: 1.8 mg/dL -- Normal range between ( 2.3 and 4.7 ) Mg 02/24/16 05:01:00 M.9 mg/dL -- Normal range between ( 1.6 and 2.6 ) Bili Total 02/24/16 05:01:00 Bili Total: 0.9 mg/dL -- Normal range between ( 0.2 and 1.2 ) Bili Direct 02/24/16 05:01:00 Bili Direct: 0.5 mg/dL -- Normal range between ( 0.0 and 0.5 ) ALT 02/24/16 05:01:00 ALT: 186 Units/L -- Normal range between ( 0 and 55 ) Alkphos 02/24/16 05:01:00 Alkphos: 167 Units/L -- Normal range between ( 40 and 150 ) A/G Ratio 02/24/16 05:01:00 A/G Ratio: 1.5 -- Normal range between ( 1.2 and 2.8 ) Globulin 02/24/16 05:01:00 Globulin: 2.3 gm/dL -- Normal range between ( 1.5 and 3.7 ) Glucose 02/24/16 05:01:00 Glucose Level: 121 mg/dL -- Normal range between ( 70 and 100 ) AST 02/24/16 05:01:00 AST: 135 Units/L -- Normal range between ( 5 and 34 ) Lipase Level 02/23/16 05:13:00 Lipase: 17 Units/L -- Normal range between ( 8 and 78 ) Lipase Level: Lipase eGFR Afr/Am 02/24/16 05:01:00 eGFR Afr/Am: >60 mL/min/1.73m2 eGFR NonAfr/Am 02/24/16 05:01:00 eGFR NonAfr/Am: >60 mL/min/1.73m2 BUN/Cr Ratio 02/24/16 05:01:00 BUN/Cr Ratio: 13.3 Comprehensive Metabolic Panel 02/24/16 05:01:00 Comprehensive Metabolic Panel: Comprehensive Metabolic Panel Renal Function Panel 02/23/16 05:13:00 Renal Function Panel: Renal Function Panel Cholesterol 02/22/16 05:02:00 Cholesterol: 193 mg/dL Triglycerides 02/22/16 05:02:00 Triglycerides: 79 mg/dL LDL 02/22/16 05:02:00 LDL: 130 mg/dL HDL 02/22/16 05:02:00 HDL: 48 mg/dL -- Normal range between ( 40 and 60 ) Cholest/HDL Ratio 02/22/16 05:02:00 Cholest/HDL Ratio: 4.0 VLDL 02/22/16 05:02:00 VLDL: 16 mg/dL -- Normal range between ( 6 and 40 ) LDL/HDL 02/22/16 05:02:00 LDL/HDL: 2.7 TSH 02/22/16 05:02:00 TSH: 2.167 uIU/mL -- Normal range between ( 0.350 and 4.940 ) Est Mean Bld Glu 02/22/16 05:02:00 Est Mean Bld Glu: 105 mg/dL HgbA1c 02/22/16 05:02:00 HgbA1C: 5.3 % -- Normal range between ( 4.0 and 6.0 ) Hepatic Function Panel 02/23/16 05:13:00 Hepatic Function Panel: Hepatic Function Panel XR Cholangio/Pancreat in OR 02/23/16 09:50:21 XR Cholangio/Pancreat in OR: XR Cholangio/Pancreat in OR XR ERCP Biliary+Pancreatic Duct 02/22/16 13:45:00 XR ERCP Biliary+Pancreatic Duct: XR ERCP Biliary+Pancreatic Duct XR Chest 1 View Portable 02/22/16 10:32:49 XR Chest 1 View Portable: XR Chest 1 View Portable Medication List: acetaminophen-HYDROcodone (acetaminophen-HYDROcod 325/5) 1 Tab, By mouth, every 6 hours, 3 Day, As Needed, as needed for pain, Refills: 0 amLODIPine (amLODIPine 5 mg oral tablet) 1 Tab, By mouth, once daily, Refills: 0 docusate (docusate sodium 100 mg oral capsule) 1 Cap, By mouth, twice daily, Refills: 0 omeprazole (omeprazole 20 mg oral enteric coated capsule) , Refills: 0 senna (senna 8.6 mg oral tablet) 1 Tab, By mouth, every bedtime, As Needed, Constipation, Refills: 0 Additional Information: Problems Active Uterine cancer HTN (hypertension) Gallstones Procedures Hysterectomy Immunizations influenza virus vaccine, inactivated (Not Given) Patient Education Information: Instructions Assigned: Endoscopic Retrograde Cholangiopancreatography (ERCP); Laparoscopic Cholecystectomy, Care After, [id number]; Endoscopic Retrograde Cholangiopancreatography (ERCP) Prescription List: [acetaminophen-HYDROcodone (acetaminophen-HYDROcod 325/5)] [amLODIPine (amLODIPine 5 mg oral tablet)] Medication Leaflet Names: Norvasc, acetaminophen-HYDROcod 325/5, docusate sodium oral capsule, Senna S 50 mg-8.6 mg oral tablet Follow up: With: Address: When: Follow up Liver function test repeat on 02-27-[address] caba or Dr. headley in office outpatient Within 1 to 3 days With: Address: When: [facility] [address] [address] [place] [address] Business (1) Within 1 to 2 weeks With: Address: When: William Farah [address] [place] [address] Business (1) Within 1 to 2 weeks Physician Documentation/Notes: DME :None Discharge Referrals/Instructions:Pt to f/u with lab work to be done, and other f/u visits with doctors, per MD's orders. Discharge Transportation:Family 02/24/2016 [facility] Anesthesia Physician Note Patient: RUBINA WOOD (SJR) Age: 70 years Sex: F : 1945 Associated Diagnoses: None Author: Vania Figueroa MD Postoperative Information Post Operative Note: Post Anesthesia Care Unit. Anesthetic utilized: General. Health Status Intake and Output 24 hour I&O data 24 hour I&O Yesterday: Intake: 1966. Output: Balance: -33.00 Today: Intake: 0.00 Output: 0.00 Balance: 0.00 Allergies: Allergic Reactions (Selected) Mild Penicillins- No reactions were documented. Current medications: Antibiotic Info - Active , Scheduled influenza virus vaccine, inact 0.5 mL, IM, x1 amLODIPine 5 mg Tab: 5 mg, PO, qDay docusate sodium 100 mg Cap: 100 mg, PO, BID heparin 5,000 Unit/mL 1mL Inj: 5,000 Unit, Subcut, q12hr pantoprazole 40 mg/ NS 10mL In 40 mg, IV Push, qDay PRN Meds acetaminophen 325 mg Tab: 650 mg, PO, q4hr, PRN: Fever ePHEDrine 50 mg/mL 1mL Inj: 5 mg, IV Push, q5min, PRN: Other (see Comments) fentaNYL 50 mcg/mL 2 mL Inj: 25 mcg, IV Push, q3min, PRN: PACU Pain 1st Choice hydrALAZINE 20 mg/mL 1mL Inj: 10 mg, IV Push, q4hr, PRN: Other (see Comments) magnesium sulfate: 2 gm, 50 mL, 25 mL/hr, IV, Per Parameter, PRN: Other (see Comments) magnesium sulfate / D5W: 1 gm, 100 mL, 100 mL/hr, IV, Per Parameter, PRN: Other (see Comments) magnesium sulfate / SW: 4 gm, 100 mL, 25 mL/hr, IV, Per Parameter, PRN: Other (see Comments) magnesium sulfate /D5W: 3 gm, 50 mL, 16.67 mL/hr, IV, Per Parameter, PRN: Other (see Comments) meperidine 25 mg/mL 1mL Inj: 10 mg, IV Push, Per Parameter, PRN: Shivering morphine: 1 - 3 mg, IV Push, q4hr, PRN: Pain Scale (See Comments) morphine: 2-6 mg, IV Push, q5min, PRN: PACU Pain 2nd Choice nalOXone 0.4 mg/mL 1mL Inj: 0.2 mg, IV Push, q2min, PRN: Respiratory depression nalOXone 0.4 mg/mL 1mL Inj: 0.04 mg, IV Push, q1min, PRN: Respiratory depression ondansetron 2 mg/mL Inj 2mL: 4 mg, IV Push, q4hr, PRN: Nausea / Vomiting 1st Choice ondansetron 2 mg/mL Inj 2mL: 4 mg, IV Push, q4hr, PRN: Nausea / Vomiting 1st Choice ondansetron 2 mg/mL Inj 2mL: 4 mg, IV Push, x1, PRN: PACU Nausea / Vomiting 1st Choice oxyCODONE/acetaminophen (5/325 1 - 2 Tab, PO, q4hr, PRN: Pain potassium chloride: 10 mEq, 100 mL, 100 mL/hr, IV, Per Parameter, PRN: Hypokalemia potassium chloride: 20 - 40 mEq, PO, Per Parameter, PRN: Hypokalemia senna 8.6 mg Tab: 8.6 mg, PO, qHS, PRN: Constipation IV Medications NaCl 0.9%: 50 mL/hr, IV, Stop: 03/23/16 17:39:00 PST . Physical Examination Respiratory Function: Airway patent, Respiratory rate within expected parameters, Oxygenation within expected parameters. Cardiovascular Function: Pulse within expected parameters, Blood pressure within expected parameters. Mental Status: Arousable and able to follow simple commands or returned to pre-status. Temperature: Within expected parameters. Pain: Within expected parameters, Post-procedure orders written. Nausea and Vomiting: No acute nausea or vomiting. Hydration: Adequately hydrated. Review / Management Results Review: 24 hr Labs Labs (All documented values resulted over the prior 24 hours..) Hematology WBC 9.00 Hgb 14.10 Hct 42.90 Plt 245.00 Chemistry Na 137.00 K 3.70 Cl 102.00 CO2 22.00 Gluc 71.00 Bun 8.00L Cr 0.67 Ca 8.90 D Bili 2.40H T Bili 3.30H Enzymes Alkphos 169.00H ALT 224H AST 280H Proteins Alb 3.70 (02/22 05:13) . Condition: Stable, no complications. Plan Transfer/ Discharge: Patient can be discharged from PACU when criteria met. Electronically Signed By: Vania Figueroa MD On 02/23/16 10:19 Co Signature By: Modified Signature By: 02/23/2016 [facility] Operative Report DATE OF OPERATION: 1 SURGEON: WILLIAM FARAH MD DATE OF SERVICE: 02/23/2016 MODELING INSTRUCTOR: None. PREOPERATIVE DIAGNOSES: Choledocholithiasis with cholelithiasis and obstruction. POSTOPERATIVE DIAGNOSES: Choledocholithiasis with cholelithiasis and obstruction. PROCEDURE PERFORMED: Laparoscopic cholecystectomy with intraoperative cholangiogram and removal of stones from the cystic and common bile duct. TYPE OF ANESTHESIA: General. ESTIMATED BLOOD LOSS: Less than 10 mL. COMPLICATIONS: None. CONDITION: Stable. SPECIMENS: Gallbladder with stones. FINDINGS: Innumerous stones from the cystic duct as well as common bile duct, which were able to be milked out. The initial cholangiogram was showed no filling defect in the common duct, however there was no contrast flowing into the duodenum. The second cholangiogram obtained after multiple flushes of saline through the duct showed some contrast going into the duodenum. Again, no filling defect was noted. BRIEF HISTORY OF CURRENT ILLNESS AND INDICATION FOR SURGERY: Ms. Wood is a 70-year-old woman presented with abdominal pain several days ago. She was found to have choledocholithiasis. She had an ERCP yesterday at which time several stones were removed after sphincterotomy. The patient presents now for laparoscopic cholecystectomy with intraoperative cholangiogram. PROCEDURE IN DETAIL: The patient was brought into the operating room and placed supine on the operative table. After induction of general anesthesia, the patient's abdomen was prepped and draped in usual fashion. A 1:1 mixture of 1% lidocaine and 0.5% Marcaine was infiltrated into skin, subcutaneous tissue, and fascia prior to all skin incisions. An infraumbilical vertical skin incision was then made. Using a 5-mm dilating trocar, under direct view, abdominal cavity was entered and pneumoperitoneum was established to a pressure of 15 mmHg of CO2. A 30 degree 5-mm scope was inserted and the abdominal cavity was then visualized. A subxiphoid 5-mm trocar was inserted followed by 2 right upper quadrant 5-mm trocars. The patient was placed in reverse Trendelenburg position and rotated to the left. The patient had a fairly large left lobe of the liver which obscured the view of the gallbladder somewhat; however, once the gallbladder was retracted and reflected laterally, the neck of the gallbladder was able to be visualized well. There was peritoneal covering over the area of the gallbladder, which was taken down using cautery exposing the neck. The area around the neck and the cystic duct and artery were dissected out. The cystic artery was circumferentially dissected out and it was clipped x2 proximally and x2 distally. The cystic duct itself was then circumferentially dissected out as well. It was noted that the cystic duct was full of stones. A clip was placed distally on the cystic duct by the cystic duct and gallbladder junction. A ductotomy was then made. Then the cystic duct stones were then milked out by pressing on the common duct. Innumerous stones that were yellow cholesterol stones were removed and retrieved. Once the cystic duct was cleared, additional distal and proximal common duct compression allowed more of the stones to be expressed through the ductotomy made in the cystic duct. Again, in total, at least 20+ stones were removed out of the cystic and common duct. Once everything appeared clear, a cholangiocatheter was introduced and clipped into place. We then obtained a cholangiogram, which showed dilated common bile duct without filling defect, but no contrast flowing into the duodenum. I flushed the duct system with another 60 or 70 mL of saline with 10 mL syringes. I then obtained another cholangiogram. The second cholangiogram revealed that there was some contrast flow into the duodenum and there was still no filling defect seen in the common duct over the ampullary region. The catheter was then removed. The cystic duct was then clipped x2 proximally, and cystic duct was then transected along with the cystic artery. Gallbladder was then dissected off the gallbladder fossa using cautery. There was a fairly large posterior branch of the cystic artery, which ran along the border of the gallbladder and the liver, which was left on the liver side and finally clipped about fci up on the gallbladder when a branch went into the gallbladder. The liver branch was left behind. Rest of gallbladder was then dissected out without any further problems. Gallbladder was placed into a bag, retrieved from the infraumbilical trocar site. The right upper quadrant was then copiously irrigated with normal saline. There were no signs of bleeding. Trocars were removed under direct view. The fascial defect was then closed using 0 Vicryl [id number] stitch x2 at the umbilical site. Skin incisions were then closed using 4-0 Monocryl subcuticular stitch. Dermabond was then applied. The patient was then awakened, extubated, taken to the postanesthesia recovery area in a stable condition after having tolerated the procedure well. Instrument, needle, lap, and pad counts were correct. WILLIAM FARAH MD BCT:[id number] JOB#:[id number] Electronically Signed By: William Farah MD On 02/26/16 17:32 Co Signature By: Modified Signature By: 02/23/2016 [facility] Operative Report Patient: JOSÉ LUIS WOOD Age: 70 years Sex: F : 1945 Admitting MD: Evert Erwin M.D. Location: [facility] 2SO: 2201: 01 Author: William Farah MD Op Note: Pre op Dx: chronic cholecystitis and cholelithiasis Post op Dx: Same Procedure: lap josie IOC Surgeon: MD Sofi Assist: None Anesth: General EBL: 5 cc Finding: Specimen: GB Complication: None Dispo: PACU # [id number] Electronically Signed By: William Farah MD On 02/23/16 10:16 Co Signature By: Modified Signature By: William Farah MD On 02/23/16 10:16 02/23/2016 [facility] Anesthesia Physician Note Patient: RUBINA WOOD ([facility]) Age: 70 years Sex: F : 1945 Associated Diagnoses: None Author: Vania Figueroa MD Basic Information Proposed Surgery: Lap josie . TIme of Assessment: Time 02/23/16 08:15:00. Histories Past Medical History Cardiovascular: hypertension. Pulmonary: Negative. Gastrointestinal: Gastroesophageal reflux disease. Renal: Negative. Metabolic: Negative. Neurologic: Negative. Illness/Bleeding: Negative. Social History non smoker. Operations/Procedures: Procedure Hx Hysterectomy ercp Prior Anesthetics General. Monitored anesthesia care. Complications: None. Health Status Current medications: Antibiotic Info - Active , Current Medications by History : omeprazole 20 mg oral enteric Refills: 0 Last Dose(home): Current ABX Orders and Last Documented Doses Allergies: Allergic Reactions (Selected) Mild Penicillins- No reactions were documented. VS/Measurements Last Documented Vital Signs Vital Signs (Most Recent ) Temp PO Heart Rate Resp Rate 36.9 71 18 (02/22 07:45) (02/22 07:45) (02/22 07:45) Non Invasive BP NIBP Mean AdmitWeight CurrentWeight BMI 140 / 73 101 77.20 75.30 29.06 (02/22 07:45) (02/21 13:55) (02/20 08:40) (02/22 05:07) (02/20 13:07) Ventilation SaO2 L/min 100 Room air (02/22 07:45) (02/22 07:45) Physical Examination NPO Status: Greater than 8 hours. General: No acute distress. Airway: Mallampati classification: II-soft palate, fauces, portion of uvula. Dentures: Upper. Mouth Opening: Good. Thyromental distance: 4 cm. Neck: WNL. Heart: Within normal limits. Lungs: Within normal limits. Neurologic: Awake. Review / Management Results Review: Current Labs Current Lab Results (with date and time): Coagulation PT 12.20 (02/21 05:02) INR 1.14 (02/21 05:02) WBC 9.00 K/uL (02/22 05:) HGB 14.10 gm/dL (02/22 05:) HCT 42.90 % (02/22 05:) MCV 83.70 fL (02/22) MCH 27.40 pg (02/22) MCHC 32.70 gm/dL (02/22) RDW 13.60 % (02/22) PLT 245.00 K/uL (02/22) Sodium 137.00 mmol/L (02/22) Potassium 3.70 mmol/L (02/22) Chloride 102.00 mmol/L (02/22) CO2 22.00 mmol/L (02/22 05:) Glucose Level 71.00 mg/dL (02/22) Bun Abnormal 8.00 mg/dL (02/22 05:) Creatinine 0.67 mg/dL (02/22 05:) Calcium 8.90 mg/dL (02/22 05:) Phosphorus 3.30 mg/dL (02/22 05:) Albumin 3.70 gm/dL (02/22 05:) . Lines and Tubes: Peripheral catheter. Documentation reviewed: Flowsheet. Assessment Diagnosis acute gallstone pancreatitis. [place] [employer] (ASA) physical status classification Class 2. E. Plan Anesthesia Plan Anesthesia: General. The risks, benefits, and alternatives of anesthetic plan and post op pain plan have been discussed and consent has been obtained. All questions answered. Consent was signed by the patient. Risks discussed: nausea, vomiting, sore throat, dental injury, serious complications. Communication: face to face with patient 5 minutes. Electronically Signed By: Vania Figueroa MD On 02/23/16 08:37 Co Signature By: Modified Signature By: 02/23/2016 [facility] Anesthesia Physician Note Patient: RUBINA WOOD (SJR) Age: 70 years Sex: F : 1945 Associated Diagnoses: None Author: Jessica Cage MD Postoperative Information Post Operative Note: Post Anesthesia Care Unit. Anesthetic utilized: Monitored anesthesia care, No General. Health Status Allergies: Allergic Reactions (Selected) Mild Penicillins- No reactions were documented. Physical Examination Respiratory Function: Airway patent. Cardiovascular Function: Pulse within expected parameters. Mental Status: Arousable and able to follow simple commands or returned to pre-status. Temperature: Within expected parameters. Pain: Within expected parameters. Nausea and Vomiting: No acute nausea or vomiting. Hydration: Adequately hydrated. Review / Management Condition: Stable. Plan Transfer/ Discharge: Patient can be discharged from PACU when criteria met. Condition good. Electronically Signed By: Jessica Cage MD On 02/22/16 13:44 Co Signature By: Modified Signature By: 02/22/2016 [facility] Operative Report Patient: RUBINA WOOD (SJR) Age: 70 years Sex: F : 1945 Associated Diagnoses: None Author: Lester Allen MD Operative Information Procedure: ercp Preoperative Diagnosis: Cholelithiasis with choledocholithiasis ([id number] K80.70, Discharge, Medical). Postoperative Diagnosis: Same. Performed by: Lester Allen MD. Laser Beam Machine Operator: N/A. Findings: See dictated notes CBD stone s/p sphincterotomy and removal Dilated CBD due to stone related obstruction [id number] . Specimens Removed: See dictated notes. Estimated Blood Loss: Minimal. Medications: See Dictation. PowerOrders Nutrition Services: Clear Liquid Diet (Order Processing): 02/22/2016 13:40 PDT Complications: None, No sedation or procedural complications. Correct Counts: Yes. Disposition: PACU. Patient status at the end of procedure:: Stable. Electronically Signed By: Lester Allen MD On 02/22/16 13:40 Co Signature By: Modified Signature By: 02/22/2016 [facility] Procedure Report DATE OF SERVICE: DATE OF SERVICE: February 22, 2016 TITLE OF THE PROCEDURE: Endoscopic retrograde cholangiopancreatography with sphincterotomy and stone extraction. INDICATION FOR PROCEDURE: Choledocholithiasis. The patient presented with gallstone pancreatitis. Her lipase has normalized and pain has resolved. ERCP for stone removal. The patient has been seen by General Surgery. MEDICATION: The patient received 0.4 mg IV glucagon and sedation by anesthesiologist, Dr. Cage. PROCEDURE IN DETAIL: Please refer to immediate postop note for the details. FINDINGS: Ampulla was small and the papillary orifice was also very stenotic. Minimum bile flow was seen. Above the ampulla, a small diverticulum was noticed. Veneer Taper film was obtained. Deep biliary cannulation with the regular 20 mm sphincterotome and 0.035 inch wire was difficult. Due to papillary stenosis, I was not able to engage the tip of the sphincter into the papillary opening. A microtome was then used. Successful deep biliary cannulation was achieved. Pancreatic duct was never cannulated or injected with contrast. Cholangiogram was obtained and 1 filling defect was seen in the distal bile duct. The duct appeared to be 12 mm size. A sphincterotomy was performed following which a 9 to 12 mm balloon catheter was advanced to the bile duct. With the balloon in the bile duct, the 0.025 inch guidewire was exchanged for a 0.035 inch guidewire. A balloon sweep was performed and stone fragments and sludge were retrieved. After few balloon chips, the balloon was inflated at the hilum and contrast was injected. It appeared that the duct was bigger than the balloon size and measured about 15 mm in size and possible filling defect was noticed. A 9 to 12 mm balloon was then exchanged for 15 mm balloon. Biliary sweeps were performed and 2 stones and lots of stone fragments were retrieved. Multiple sweeps were performed until clear bile and contrast was seen. Initially only 12 mm size balloon was come out of ampulla, but at the end after stone extraction, 15 mm balloon was able to come out of the ampulla. By mild bleeding occurred at the sphincterotomy site. By resolved upon period of observation. Occlusion cholangiogram showed no more filling defect. The wheel of the endoscope was unlocked and scope was removed suctioning out excessive air and liquids. FINAL DIAGNOSIS: Choledocholithiasis, status post sphincterotomy and stone extraction. Mild sphincterotomy related bleeding when stones were extracted and resolved spontaneously. RECOMMENDATION: The patient will be started on clear liquid diet. The patient will undergo laparoscopic cholecystectomy as previously scheduled. LESTER ALLEN MD SW:[facility]/[id number] JOB#:[id number] Electronically Signed By: Lester Allen MD On 02/25/16 10:07 Co Signature By: Modified Signature By: 02/22/2016 [facility] Anesthesia Physician Note Patient: RUBINA WOOD ([facility]) Age: 70 years Sex: F : 1945 Associated Diagnoses: None Author: Jessica Cage MD Basic Information Proposed Surgery: Ercp . TIme of Assessment: Time 02/22/16 12:36:00. Histories Past Medical History Problems Gallstones HTN (hypertension) Uterine cancer . Health Status Current medications: Antibiotic Info - Active Allergies: Allergic Reactions (Selected) Mild Penicillins- No reactions were documented. Physical Examination NPO Status: Greater than 8 hours. General: No acute distress. Airway: Mallampati classification: III-soft palate, base of uvula. Heart: Within normal limits. Lungs: Within normal limits. Neurologic: Awake. Assessment [place] [employer]esthesi[employer] (ASA) physical status classification Class 2. Plan Anesthesia Plan Anesthesia: General. The risks, benefits, and alternatives of anesthetic plan and post op pain plan have been discussed and consent has been obtained. All questions answered. Risks discussed: nausea, vomiting, headache, sore throat, dental injury, serious complications. Electronically Signed By: Jessica Cage MD On 02/22/16 12:37 Co Signature By: Modified Signature By: 02/22/2016 [facility] Consultation DATE OF SERVICE: DATE OF SERVICE: 02/21/2016 REFERRING PHYSICIAN: Akbar Almeida D.O. REASON FOR CONSULTATION: Gallstone pancreatitis. HISTORY OF PRESENT ILLNESS: I was asked by Dr. Almeida to see this patient for surgical consultation of abdominal pain and cholelithiasis with choledocholithiasis and pancreatitis. Ms. Wood is a 70-year-old woman who presents with abdominal pain for the second time in 1 week in the upper abdominal epigastric area. She apparently was seen in the ER about a week ago, was found to have gallstones, and was thus subsequently sent home. However, she comes back to the emergency room today secondary to recurrence of her pain. She had associated nausea, but no vomiting. Her pain started last night after she had a chicken dinner. The pain is described as being quite sharp without radiation. Nothing seems to make it worse. Denies any fevers or chills. Workup in the emergency room showed gallstones, dilated common bile duct with common bile duct stone and pancreatitis, but normal liver and normal bilirubin. The patient is scheduled to have an ERCP tomorrow by the GI service, and surgical consultation is being requested for possible cholecystectomy after her ERCP. The patient states that her pain is much improved compared to this morning. Her pain is minimal at this point at the epigastric area. PAST MEDICAL HISTORY: Hypertension. SURGICAL HISTORY: Hysterectomy. ALLERGIES: TO PENICILLIN. MEDICATIONS: At home include omeprazole and Zofran. SOCIAL HISTORY: She denies any tobacco use. Denies any alcohol use. She is . REVIEW OF SYSTEMS: GENERAL: No fevers or chills. HEENT: No history of jaundice or scleral icterus. No hearing, visual, or swallowing changes. NECK: No pain or mass noted. CARDIOVASCULAR: No chest pains or palpitations. RESPIRATORY: No shortness of breath or cough. GI: As above in the HPI. : Denies any dysuria or frequency. ENDOCRINE: Denies any cold or heat intolerance. MUSCULOSKELETAL: No history of muscle or joint disorders. HEMATOLOGIC: No history of bleeding problems or blood disorders or anemia. SKIN: No history of rash or lesions or jaundice. NEUROLOGIC: No history of seizures or head injury. PSYCHIATRIC: No history of depression, anxiety, or psychosis. PHYSICAL EXAMINATION: VITAL SIGNS: Temperature is 36.8, pulse is 68, and blood pressure 169/86. GENERAL APPEARANCE: Age-appropriate woman, pleasant, in no acute distress. HEENT: Normocephalic and atraumatic. Anicteric. Normal external ears and nose. NECK: Supple. Nontender. No cervical lymphadenopathy. No thyromegaly. Trachea is midline. CARDIOVASCULAR: Normal S1, S2. Regular rate and rhythm. No murmur, rubs, or gallops. LUNGS: Clear to auscultation bilaterally. No wheeze, rales, or rhonchi. ABDOMEN: Soft, mildly tender to palpation at the epigastric area without guarding or rebound. No mass noted. EXTREMITIES: No clubbing, cyanosis, or edema. NEURO: Awake, alert, and oriented x4. No focal deficits. LABORATORY DATA: WBC 9.9, hemoglobin is 15.1, and platelet count is 264. Sodium is 139, potassium is 4.1, chloride is 102, bicarb is 29, BUN is 15, creatinine is 0.76, glucose is 102, lipase is 1477, and bilirubin is 0.7. DIAGNOSTIC STUDIES: Ultrasound of the abdomen today showed gallstones with choledocholithiasis with thickening of the gallbladder wall at 3.4 mm. Common bile duct is dilated up to 10 mm. IMPRESSION: Ms. Wood is a 70-year-old woman with gallstone pancreatitis and choledocholithiasis. Her pain is much improved at this point with pain medication. The patient is scheduled to have ERCP tomorrow. I discussed with the patient the recommendation of laparoscopic cholecystectomy after her ERCP at this hospitalization to prevent her from having another attack. Indications, risks, benefits, and alternatives of laparoscopic cholecystectomy were discussed with her. Options of delaying surgery as an outpatient or in the future were also discussed, although I also informed her of the risk of recurrent pancreatitis and choledocholithiasis should she decide to wait. She does live in [place] and is visiting until March. At this point, the patient does wish to proceed with surgery. PLAN: Continue n.p.o. Continue IV fluids and supportive care. ERCP tomorrow with GI. If there are no complications from that such as perforation or pancreatitis, then I will plan for a laparoscopic cholecystectomy on Thursday. WILLIAM FARAH MD BCT:[facility]/[id number] JOB#:[id number] cc: Delmy PANDEY DO Electronically Signed By: William Farah MD On 02/22/16 15:41 Co Signature By: Modified Signature By: 02/22/2016 [facility] Consultation Patient: JOSÉ LUIS WOOD Age: 70 years Sex: F : 1945 Admitting MD: Evert Erwin M.D. Location: [facility] 2SO: 2204: 01 Author: Benja Fall DO Reason for Consultation Gallstone pancreatitis History of Present Illness This is a 70 year old woman who initially presented to the Er a week ago with abdominal pain. She had normal liver enzymes and lipase and U/S showed cholelithiasis and dilated CBD but no obvious CBD stone. She presented again with worsening RUQ pain this morning and U/S showed 4. 3 mm choledocholithiasis. She admits to worsening pain. She denies any fevers or chills. Normal WBC count. Liver enzymes were normal however U/S did show CBD stone. Lipase was found to be > 1400 consistent with gallstone pancreatitis. There was also some GBW thickening which was seen on U/S. Review of Systems +abdominal pain, + nausea, negative for emesis, negative for jaundice or scleral icterus Objective Vitals and Measurements T: 36.5 ?C (Oral) HR: 74 RR: 16 BP: 178/88 SpO2: 100% Oxygen Amount: Room air Physical Exam GEN: No acute distress, alert and oriented x 3 HEENT: oropharynx clear, mucous membranes moist NECK: supple, no jugular venous distention CV: regular rate and rhythm, no rubs or gallops ABD: soft, nontender, nondistended, normoactive bowel sounds, no guarding or rebound. EXTR: no cyanosis, clubbing or edema NEURO: Non-focal, moves all extremities Lab Results Last 24 Hours Basic Metabolic Panel: Hematology: Sodium: 139 (02/21/16) Hgb: 15.1 (02/21/16) Potassium: 4.1 (02/21/16) HgbA1c: ------ Phosphorus: ------ WBC: 9.9 (02/21/16) Mg: ------ Plt: 264.0 (02/21/16) BUN: 15 (02/21/16) INR: ------ Creatinine: 0.76 (02/21/16) Creatinine Clearance: ------ Additional - Last 24 Hours A/G Ratio: 1.5 (02/21/16) ABS Neut: 6.5 (02/21/16) Albumin: 4.1 (02/21/16) Alkphos: 82 (02/21/16) ALT: 48 (02/21/16) Appearance: Slightly Hazy (02/21/16) AST: 82 (02/21/16) Baso%: 1.2 (02/21/16) Bili Total: 0.7 (02/21/16) BUN/Cr Ratio: 19.7 (02/21/16) Calcium: 9.6 (02/21/16) Chloride: 102 (02/21/16) CO2: 29 (02/21/16) Color: Yellow (02/21/16) Comprehensive Metabolic Panel: Comprehensive Metabolic Panel (02/21/16) eGFR Afr/Am: >60 (02/21/16) eGFR NonAfr/Am: >60 (02/21/16) Eos%: 4.8 (02/21/16) Globulin: 2.8 (02/21/16) Glucose Level: 102 (02/21/16) Hct: 45.2 (02/21/16) Lipase: 1477 (02/21/16) Lipase Level: Lipase (02/21/16) Lymph%: 21.6 (02/21/16) MCH: 27.7 (02/21/16) MCHC: 33.4 (02/21/16) MCV: 83.0 (02/21/16) Vance%: 7.0 (02/21/16) Neut%: 65.4 (02/21/16) Protein, Total: 6.9 (02/21/16) RBC: 5.44 (02/21/16) RDW: 13.4 (02/21/16) Report: Report (02/21/16) Specific Gaastra: 1.012 (02/21/16) UA Squam Epithelial: Many (02/21/16) UA Urobilinogen: <2.0 (02/21/16) UBacteria: Rare (02/21/16) UBilirubin: Negative (02/21/16) UBlood: Negative (02/21/16) UGlucose: Negative (02/21/16) UKetones: Negative (02/21/16) ULeukocyte Esterase: Negative (02/21/16) UMucous: Moderate (02/21/16) UNitrite: Neg (02/21/16) UpH: 7 (02/21/16) UProtein: Negative (02/21/16) URBC: 0-2 (02/21/16) Urine WBCs: 0-2 (02/21/16) Assessment/Plan A. 1. Gallstone Pancreatitis secondary to biliary stone 2. Choledocholithiasis on U/S with dilated CBD 3. Cholelithiasis with GBW thickening as well P. 1. Discussed with patient plan for ERCP with sphincterotomy and stone extraction tomorrow with Dr. Aleln - timing to be decided 2. NPO for now 3. Recommend 200 cc IVF /hr 4. supportive care, pain management Problem List/Past Medical History Ongoing Gallstones HTN (hypertension) Historical No qualifying data Procedure/Surgical History Hysterectomy. Medications Inpatient morphine INJ, 1 - 3 mg, IV Push, q4hr, PRN NaCl 0.9% 1,000 mL, 1000 mL, IV Zofran, 4 mg, 2 mL, IV Push, q4hr, PRN Home acetaminophen-HYDROcod 325/5, 2 Tab, PO, every 6 hours, PRN omeprazole 20 mg oral enteric coated capsule ondansetron 4 mg oral tablet, disintegrating, 4 mg, 1 Tab, PO, TID, PRN Allergies penicillins Reaction: None Documented Social History Alcohol Denies Denies Home/Environment Christian restrictions/concerns: None. Christian restrictions/concerns: None. Substance Abuse Denies Denies Tobacco Never used tobacco, Never used tobacco Never used tobacco, Never used tobacco b Electronically Signed By: Benja Fall DO On 02/21/16 13:16 Co Signature By: Modified Signature By: Benja Fall DO On 02/21/16 13:16 02/21/2016 [facility] ED Physician Notes Patient: RUBINA WOOD ([facility]) Age: 70 years Sex: F : 1945 Associated Diagnoses: None Author: Bran Murillo Basic Information Time seen: Provider Initial Contact Time 02/21/2016 08:44. History source: Patient. Arrival mode: Walking. History limitation: None. Additional information: Chief Complaint (ST) Chief Complaint ED: ABD PAIN 02/21/16 08:40, ED Triage Assessment: EPIGASTRIC PAIN RAD RUQ/BACK, + NAUSEA, + RECENT G.B. W/U NEG BLEEDING 02/21/16 08:40 . History of Present Illness The patient presents with Bilateral percussion abdominal pain. The patient was seen here recently for gallbladder pain. Her pain is worse, not improve with prescribed medication. Associated with nausea but no vomiting. The patient had a light dinner of chicken and rice last night after which her abdominal pain was mild to moderate with no alleviating or aggravating symptoms. This morning her pain is excruciating, right upper quadrant, sharp stabbing. Nonradiating. No alleviating symptoms. No fever, chills, rash,. Review of Systems Constitutional symptoms: Negative except as documented in HPI. Skin symptoms: Negative except as documented in HPI. Eye symptoms: Negative except as documented in HPI. ENMT symptoms: Negative except as documented in HPI. Respiratory symptoms: Negative except as documented in HPI. Cardiovascular symptoms: Negative except as documented in HPI. Gastrointestinal symptoms: Abdominal pain, nausea. Genitourinary symptoms: Negative except as documented in HPI. Musculoskeletal symptoms: Negative except as documented in HPI. Neurologic symptoms: Negative except as documented in HPI. Health Status Allergies: Allergic Reactions (Selected) Mild Penicillins- No reactions were documented.. Past Medical/ Family/ Social History Medical history: All Problems Gallstones / [id number] / Confirmed HTN (hypertension) / [id number] / Confirmed. Surgical history: Hysterectomy ([id number]).. Family history: No family history items have been selected or recorded.. Social history: Social and Psychosocial Habits Alcohol 02/13/2016 Use: Denies 02/21/2016 Use: Denies Home/Environment 02/13/2016 Christian restrictions/concerns: None 02/21/2016 Christian restrictions/concerns: None Substance Abuse 02/13/2016 Use: Denies 02/21/2016 Use: Denies Tobacco 02/13/2016 Use: Never used tobacco Type: Never used tobacco 02/21/2016 Use: Never used tobacco Type: Never used tobacco . Physical Examination Vital Signs Vital-Signs 02/21/2016 10:00 PDT Oxygen Amount Room air SPO2 100 % Heart Rate 74 bpm NIBP Diastolic 88 mm Hg NIBP Systolic 145 mm Hg H Resp Rate (Monitor) 16 Breaths/Min 02/21/2016 08:50 PDT Glucose Level 102 mg/dL H 02/21/2016 08:40 PDT Oxygen Amount Room air SPO2 100 % Heart Rate 70 bpm NIBP Diastolic 106 mm Hg H NIBP Systolic 196 mm Hg >HHI Resp Rate (Monitor) 16 Breaths/Min Temperature PO 36.7 deg C . Height/Weight 02/21/2016 08:40 PDT Weight Method Stated Drug Calc Weight (kg) 77.2 kg Height 163 cm . Oxygen sat is within normal limits on room air. . General: Alert, no acute distress. Skin: Warm, intact. Head: Normocephalic, atraumatic. Eye: Pupils are equal, round and reactive to light, extraocular movements are intact, normal conjunctiva, vision unchanged. Gastrointestinal: Soft, Non distended, Tenderness: Moderate, right upper quadrant, Guarding: Negative, Rebound: Negative, Bowel sounds: Normal, Organomegaly: Negative, Trauma: Negative, Signs: Mtz's, McBurney's negative. Back: Nontender. Neurological: Alert and oriented to person, place, time, and situation. Medical Decision Making Differential Diagnosis: Abdominal pain, Appendicitis, bowel obstruction, renal stone, ureteral stone, biliary colic, cholecystitis, hepatitis, pancreatitis, irritable bowel syndrome, urinary tract infection, pyelonephritis, gastroesophageal reflux disease, gastroenteritis, abdominal aortic aneurysm, ischemic bowel, diverticulitis, acute myocardial infarction, constipation, Pancreatitis. Rationale: 7-year-old female with no past medical history presented emergency room for reevaluation of right upper quadrant abdominal pain with a recent diagnosis cholelithiasis. I considered the above-mentioned differentials including choledocholithiasis, cholecystitis, gallstone pancreatitis, appendicitis less likely in this patient. Abdominal labs are afocal no leukocytosis however the patient does have markedly pancreatitis. Abdominal ultrasound shows gallbladder wall thickening, cholelithiasis, choledocholithiasis. I consulted with supervising physician Dr. dickerson, who agrees the patient needs admission to the hospital for acute pancreatitis, choledocholithiasis,. Results review: Lab results : Laboratory 02/21/2016 08:57 PDT Color Yellow Appearance Slightly Hazy Specific Gaastra 1.012 UpH 7 UGlucose Negative UBilirubin Negative UKetones Negative UBlood Negative UProtein Negative UA Urobilinogen <2.0 UNitrite Neg ULeukocyte Esterase Negative UA Squam Epithelial Many Urine WBCs 0-2 URBC 0-2 UMucous Moderate UBacteria Rare 02/21/2016 08:50 PDT WBC 9.9 K/uL RBC 5.44 M/uL H Hgb 15.1 gm/dL Hct 45.2 % Plt 264.0 K/uL MCV 83.0 fL MCH 27.7 pg MCHC 33.4 gm/dL RDW 13.4 % ABS Neut 6.5 K/uL Neut% 65.4 % Lymph% 21.6 % Vance% 7.0 % Eos% 4.8 % Baso% 1.2 % Sodium 139 mmol/L Potassium 4.1 mmol/L Chloride 102 mmol/L CO2 29 mmol/L Glucose Level 102 mg/dL H BUN 15 mg/dL Creatinine 0.76 mg/dL BUN/Cr Ratio 19.7 NA eGFR Afr/Am >60 mL/min/1.73m2 eGFR NonAfr/Am >60 mL/min/1.73m2 Calcium 9.6 mg/dL Protein, Total 6.9 gm/dL Albumin 4.1 gm/dL Globulin 2.8 gm/dL A/G Ratio 1.5 Bili Total 0.7 mg/dL ALT 48 Units/L AST 82 Units/L H Alkphos 82 Units/L Lipase 1,477 Units/L H . Radiology results: Radiologist's interpretation Name: RUBINA WOOD Account: [id number] : 1945 Result Date: 02/21/16 09:37 Verified By: Tha Earl MD at 02/21/16 10:06 Report : US ABDOMEN LIMITED PATIENT: RUBINA WOOD Referring: BRAN LICHAMRN: [id number] -: 1945 Age: 70 Gender: F MARIN: [id number]#: [id number] of Exam: 02/21/2016 at 9:09 Room # E015 Patient Type: ER PROCEDURE: US ABDOMEN LIMITED INDICATIONS: RUQ abd pain CONCLUSION: 1. Cholelithiasis and choledocholithiasis with thickening of the gallbladder wall and biliary dilatation.2. Borderline hepatomegaly with a small right hepatic cyst TECHNIQUE: High resolution sonographic examination was performed of the right upper abdomen. [place] [facility] [place]13[place] 8:22. FINDINGS: LIVER: Borderline hepatomegaly measuring 16.1 cm in superior-inferior diameter. There is a 1.0 cm cyst in the right hepatic lobe.BILIARY: Numerous small gallstones within the gallbladder lumen with mild thickening of the gallbladder wall at 3.4 mm. There is evidence of choledocholithiasis with a 4.3 mm stone within the common bile duct. The common bile duct is dilated to 10 mm.PANCREAS: No visible mass, abnormal atrophy, or ductal dilatation. RIGHT KIDNEY: No mass or obstruction. The right kidney measures 10.7 cm in length. Dictated by: Tha Earl M.D. on 02/21/2016 at 10:02 Approved by: Tha Earl M.D. on 02/21/2016 at 10:06 02/21/16 10:06 ++++++++++++++++++++++++++++++++++ +++++++++++++++++++++ . Impression and Plan Diagnosis #1 acute gallstone pancreatitis #2 cholelithiasis #3 choledocholithiasis Plan Disposition: Admit: Time 02/21/16 11:00:00, to Inpatient Unit, Evert Erwin M.D.. Addendum Teaching-Supervisory Addendum-Brief Notes: I have read the medical record of this patient. I approve the care and treatment provided to this patient by the Physician Laser Beam Machine Operator, Nurse Practitioner, Nurse Biological Science Technician Fish or FLYING SQUAD SALESPERSON. I also approve any history and physical, discharge summary, and all verbal and written orders for the patient provided by the Physician Laser Beam Machine Operator, Nurse Practitioner, Nurse Biological Science Technician Fish or FLYING SQUAD SALESPERSON. Any scheduled medications provided have patient speficic approval from supervising physician and any X-rays and/or EKG, if performed, were interpreted by supervising physician and scribed by TIM.Bran PA-C, I was supervised in the managment of this patient by . Electronically Signed By: Bran Murillo On 02/21/16 11:13 Co Signature By: Emile Dickerson MD On 02/21/16 14:42 Modified Signature By: 02/21/2016 [facility] ED Physician Notes Patient: RUBINA WOOD ([facility]) Age: 70 years Sex: F : 1945 Associated Diagnoses: None Author: Emile Dickerson MD Basic Information Time seen: Immediately upon arrival. History source: Patient. Arrival mode: Private vehicle, walking. History limitation: None. Additional information. History of Present Illness The patient presents with abdominal pain and History of gallstones now abdominal pain right upper quadrant no change position activity. Review of Systems Constitutional symptoms: Negative except as documented in HPI. Skin symptoms: Negative except as documented in HPI. Eye symptoms: Negative except as documented in HPI. ENMT symptoms: Negative except as documented in HPI. Respiratory symptoms: Negative except as documented in HPI. Cardiovascular symptoms: Negative except as documented in HPI. Gastrointestinal symptoms: Abdominal pain. Genitourinary symptoms: Negative except as documented in HPI. Musculoskeletal symptoms: Negative except as documented in HPI. Neurologic symptoms: Negative except as documented in HPI. Psychiatric symptoms: Negative except as documented in HPI. Endocrine symptoms: Negative except as documented in HPI. Hematologic/Lymphatic symptoms: Negative except as documented in HPI. Allergy/immunologic symptoms: Negative except as documented in HPI. Health Status Allergies: Allergic Reactions (Selected) Mild Penicillins- No reactions were documented.. Immunizations: Up to date. Menstrual history: Per nurse's notes. Medications. Past Medical/ Family/ Social History Medical history: All Problems Gallstones / [id number] / Confirmed HTN (hypertension) / [id number] / Confirmed. Surgical history: Hysterectomy ([id number]).. Physical Examination Vital Signs Vital-Signs 02/21/2016 10:00 PDT Oxygen Amount Room air SPO2 100 % Heart Rate 74 bpm NIBP Diastolic 88 mm Hg NIBP Systolic 145 mm Hg H Resp Rate (Monitor) 16 Breaths/Min 02/21/2016 08:50 PDT Glucose Level 102 mg/dL H 02/21/2016 08:40 PDT Oxygen Amount Room air SPO2 100 % Heart Rate 70 bpm NIBP Diastolic 106 mm Hg H NIBP Systolic 196 mm Hg >HHI Resp Rate (Monitor) 16 Breaths/Min Temperature PO 36.7 deg C . Height/Weight 02/21/2016 08:40 PDT Weight Method Stated Drug Calc Weight (kg) 77.2 kg Height 163 cm . General: Alert, no acute distress. Skin: Warm, dry, pink. Head: Normocephalic, atraumatic. Neck: Supple, trachea midline. Eye: Pupils are equal, round and reactive to light, extraocular movements are intact. Ears, nose, mouth and throat: Oral mucosa moist, no pharyngeal erythema or exudate. Respiratory: Lungs are clear to auscultation, respirations are non-labored. Cardiovascular: Regular rate and rhythm, No murmur. Chest wall: No tenderness, No deformity. Back: Nontender, Normal range of motion, Normal alignment. Musculoskeletal: Normal ROM, normal strength. Gastrointestinal: Soft, Non distended, Normal bowel sounds, Tenderness: Moderate, right upper quadrant. Genitourinary: No tenderness, no discharge. Neurological: Alert and oriented to person, place, time, and situation, No focal neurological deficit observed. Lymphatics: No lymphadenopathy. Psychiatric: Cooperative, appropriate mood and affect. Medical Decision Making Differential Diagnosis: Abdominal pain, Appendicitis, bowel obstruction. Rationale: History gallstones now ultrasound demonstrated thickening gallbladder wall also elevated lipase suggestive gallstone pancreatitis will call primary for admission. Impression and Plan Diagnosis Acute gallstone pancreatitis ([id number] K85.10, Discharge, Medical) Calls-Consults - GI and PCP consulted. Plan Condition: Improved, Stable. Disposition: Admit: to Inpatient Unit. Electronically Signed By: Emile Dickerson MD On 02/21/16 10:26 Co Signature By: Modified Signature By: 02/21/2016 [facility] ED Physician Notes Patient: RUBINA WOOD ([facility]) Age: 70 years Sex: F : 1945 Associated Diagnoses: None Author: Kenji Kaye DO Basic Information Time seen: Date and time 02/13/16 07:26:00. History source: Patient, EMS. Arrival mode: Ambulance. History limitation: None. Additional information: Chief Complaint (ST) No results found.. History of Present Illness The patient presents with abdominal pain and Nausea, vomiting, diarrhea. The onset was 6 hours ago. The course/duration of symptoms is constant. The character of symptoms is pressure. The Location of pain at onset was right, upper and mid epigastric. The degree at present is severe. The Location of pain at present is right, upper and mid epigastric. Radiating pain: none. There are exacerbating factors including eating and changing position. The relieving factor is none. Therapy today: prescription medications including Zofran from EMS. Risk factors consist of hypertension. Associated symptoms: nausea, vomiting and diarrhea. 70-year-old female brought in by EMS from home with chief complaint of abdominal pain with nausea, vomiting, diarrhea which started at 1 AM. Patient states she has history of gallbladder disease. She states that current symptoms are consistent with previous gallbladder attacks. She states that she had an ultrasound of her gallbladder approximately one year ago at [facility] hospital. No fever or chills. She's had a few episodes of nonbloody, nonbilious emesis. She describes sharp pressure-like pain in the epigastric and right upper quadrant region. Worsened with food and movement. No specific relieving factors. She had one or 2 episodes of mild diarrhea which was nonbloody. No sick contacts. No recent antibiotics use. Patient states that she has history of hypertension, but does not take any medications for it. She states that her primary care was going to start her on medication soon for high blood pressure.. Review of Systems Constitutional symptoms: Negative except as documented in HPI. Skin symptoms: Negative except as documented in HPI. Eye symptoms: Negative except as documented in HPI. ENMT symptoms: Negative except as documented in HPI. Respiratory symptoms: Negative except as documented in HPI. Cardiovascular symptoms: Negative except as documented in HPI. Gastrointestinal symptoms: Abdominal pain, nausea, vomiting, diarrhea. Genitourinary symptoms: Negative except as documented in HPI. Musculoskeletal symptoms: Negative except as documented in HPI. Neurologic symptoms: Negative except as documented in HPI. Psychiatric symptoms: Negative except as documented in HPI. Health Status Allergies: No active allergies have been recorded.. Past Medical/ Family/ Social History Medical history: All Problems Gallstones / [id number] / Confirmed HTN (hypertension) / [id number] / Confirmed. Surgical history: Negative. Family history: No family history items have been selected or recorded.. Social history: Not significant. Physical Examination Vital Signs Vital-Signs 02/13/2016 07:29 PDT Temperature PO 36.7 deg C Heart Rate 67 bpm NIBP Systolic 201 mm Hg >HHI NIBP Diastolic 98 mm Hg H Resp Rate (Monitor) 19 Breaths/Min SPO2 99 % . Per nurse's notes. oxygen sat on RA is normal. General: Alert, no acute distress. Skin: Warm, dry, normal for ethnicity. Head: Normocephalic, atraumatic. Neck: Supple, trachea midline, no tenderness, no JVD. Eye: Pupils are equal, round and reactive to light, extraocular movements are intact, normal conjunctiva, vision grossly normal. Ears, nose, mouth and throat: Oral mucosa moist, no pharyngeal erythema or exudate. Cardiovascular: Regular rate and rhythm, No murmur, Normal peripheral perfusion. Respiratory: Lungs are clear to auscultation, respirations are non-labored, breath sounds are equal, Symmetrical chest wall expansion. Chest wall: No tenderness. Back: Nontender, Normal range of motion, Normal alignment. Musculoskeletal: Normal ROM, normal strength, no tenderness, no swelling, no deformity. Gastrointestinal: Soft, Non distended, No organomegaly, Tenderness: Moderate, epigastric, right upper quadrant, Guarding: Minimal, Rebound: Negative, Bowel sounds: Normal. Neurological: Alert and oriented to person, place, time, and situation, No focal neurological deficit observed. Medical Decision Making Differential Diagnosis: Abdominal pain, biliary colic, cholecystitis, hepatitis, pancreatitis, gastroesophageal reflux disease, gastroenteritis, peptic ulcer disease, gastritis, diverticulitis, constipation. Documents reviewed: None available. Results review: Lab results : Laboratory 02/13/2016 07:59 PDT WBC 13.8 K/uL H RBC 5.72 M/uL H Hgb 15.8 gm/dL H Hct 47.2 % H Plt 245.0 K/uL MCV 82.6 fL MCH 27.7 pg MCHC 33.5 gm/dL RDW 13.9 % ABS Neut 12.2 K/uL H Neut% 88.2 % H Lymph% 7.4 % L Vance% 3.6 % Eos% 0.3 % Baso% 0.5 % Sodium 139 mmol/L Potassium 3.8 mmol/L Chloride 100 mmol/L CO2 25 mmol/L Glucose Level 173 mg/dL H BUN 13 mg/dL Creatinine 0.71 mg/dL BUN/Cr Ratio 18.3 NA eGFR Afr/Am >60 mL/min/1.73m2 eGFR NonAfr/Am >60 mL/min/1.73m2 Calcium 9.6 mg/dL Protein, Total 7.8 gm/dL Albumin 4.7 gm/dL Globulin 3.1 gm/dL A/G Ratio 1.5 Bili Total 0.7 mg/dL ALT 14 Units/L AST 19 Units/L Alkphos 98 Units/L Lipase 19 Units/L 02/13/2016 07:53 PDT Color Straw Appearance Clear Specific Gaastra 1.010 UpH 8 UGlucose 150 UBilirubin Negative UKetones 20 UBlood Negative UProtein Negative UA Urobilinogen <2.0 UNitrite Neg ULeukocyte Esterase Negative UA Squam Epithelial Rare Urine WBCs 0-2 URBC 0-2 UBacteria None Seen . Radiology results: Radiologist's interpretation Name: RUBINA WOOD Account: [id number] : 1945 Result Date: 02/13/16 08:40 Verified By: Dave Ramírez MD at 02/13/16 09:04 Report : US ABDOMEN LIMITED PATIENT: RUBINA WOOD Referring: KENJI KAYEMRN: [id number] : 1945 Age: 70 Gender: F MARIN: [id number]#: [id number] of Exam: 02/13/2016 at 8:22 Room # Patient Type: ER PROCEDURE: US ABDOMEN LIMITED INDICATIONS: Right upper quadrant pain, history of gallstones CONCLUSION: 1. Cholelithiasis. Negative for gallbladder wall thickening.2. Mild bile duct dilatation with the common bile duct measuring 8 mm3. Small amount of fluid in the katt hepatis near the gallbladder. TECHNIQUE: High resolution sonographic examination was performed of the right upper abdomen. COMPARISON: None. FINDINGS: LIVER: Normal size and echotexture. No significant masses. BILIARY: Cholelithiasis. Negative for gallbladder wall thickening. Small amount of fluid in the region of the adjacent katt hepatis. Mild bile duct dilatation with the common bile duct measuring 8 mmPANCREAS: Limited visualization; grossly negativeRIGHT KIDNEY: No mass or obstruction. The right kidney measures 9.8 cm in length. Dictated by: Dave Ramírez M.D. on 02/13/2016 at 9:00 Approved by: Dave Ramírez M.D. on 02/13/2016 at 9:04 02/13/16 09:04 ++++++++++++++++++++++++++++++++++ +++++++++++++++++++++ . Reexamination/ Reevaluation Time: 02/13/16 10:07:00 . Vital signs results included from flowsheet : Vital-Signs 02/13/2016 09:00 PDT Heart Rate 64 bpm NIBP Systolic 189 mm Hg >HHI NIBP Diastolic 97 mm Hg H Resp Rate (Monitor) 19 Breaths/Min SPO2 98 % Course: improving. Pain status: decreased. Assessment: exam improved. Notes: This patient presented to the emergency department with complaints of upper abdominal pain. Based on my evaluation and the diagnostic data obtained thus far, my initial clinical impression is that the signs and symptoms are consistent with acute biliary colic without evidence of an acute surgical abdomen. The plan is to treat the patient symptomatically and expectantly with an early referral for further evaluation and treatment as an outpatient. The patient was discharged in stable and improved condition.. Impression and Plan Diagnosis HTN (hypertension) (SHD04-FC I10, Discharge, Medical) Gallstones (USD58-ZZ K80.20, Discharge, Medical) Biliary colic (BHV73-YC K80.50, Discharge, Medical) Plan Condition: Improved, Stable. Disposition: Medically cleared, Discharged: Time 02/13/16 10:09:00, to home. Prescriptions: Launch prescriptions Pharmacy: ondansetron 4 mg oral tablet, disintegrating (Prescribe): 1 Tab, PO, TID, PRN: as needed for nausea/vomiting, 12 Tab, 0 Refill(s) acetaminophen-HYDROcod 325/5 (Prescribe): 2 Tab, PO, every 6 hours, PRN: as needed for pain, 20 Tab, 0 Refill(s). Patient was given the following educational materials: Biliary Colic, Hypertension. Follow up with: ; Follow up with primary care provider Within 1 to 3 days Call for follow up appointment Return to ED if symptoms worsen Take all medications as prescribed;. Counseled: Patient, Regarding diagnostic results, Regarding treatment plan, Regarding prescription, Patient indicated understanding of instructions. Orders: Launch Orders Patient Care: Team Discharge (ED Use Only) (Order Processing): 02/13/2016 10:11 PDT Admit/Transfer/Discharge: Discharge (Order Processing): 02/13/2016 10:11 PDT, Now, Home or self care. Electronically Signed By: Kenji Kaye DO On 02/13/16 14:11 Co Signature By: Modified Signature By: Kenji Kaye DO On 02/13/16 08:00 02/13/2016 [facility] Discharge Summaries Results Value Date Source Discharge Summary DATE OF SERVICE: February 24, 2016 at 4 p.m. The patient was admitted for mid abdominal pain. Further details as per [place] [facility], Dr. Almeida on admission. HOSPITAL COURSE: This is a 70-year-old female with history of hypertension, presented to ED for abdominal pain. The patient had evaluation with blood work and ultrasound as concern for biliary tract pathology showed cholelithiasis and choledocholithiasis with thickening of the gallbladder wall and biliary dilatation, borderline hepatomegaly with small right hepatic cyst. The patient was admitted for pain management, IV fluids, and supportive care with antiemetics with elevated lipase over 1000 with acute gallstone pancreatitis. Elevated LFTs likely from obstruction. GI and Surgery was consulted. The patient had endoscopic retrograde cholangiopancreatography with sphincterotomy and stone extraction. This was done on February 22, 2016, sphincterotomy related bleeding when stones extracted resolved spontaneously and further underwent laparoscopic cholecystectomy with intraoperative cholangiogram and removal of stone from cystic and common bile duct with Dr. Farah that was done on February 23, 2016, that otherwise tolerated well. There was a concern for after surgery as her LFTs bounce back with elevated bilirubin. It was discussed with GI and Surgery likely from significant edema, otherwise followup LFTs today significantly improved also clinically the patient has no fever, tolerating diet, significantly improved abdominal pain with liver function tests significantly improving with total bilirubin normal 0.9. It was discussed with GI and Surgery, disposition for discharge home today as the patient also wishing to go home was recommended close followup with GI and Surgery as outpatient and repeat liver function tests for progression as outpatient to follow with GI, Dr. Caba and Dr. Allen. PHYSICAL EXAMINATION: VITAL SIGNS: Stable. Temperature 37, heart rate 68, respiratory rate 16, blood pressure 136/75, and saturating 98% on room air. GENERAL: No acute distress. Alert and oriented x3. HEENT: Sclerae, nonicteric. Oropharynx clear. Mucosa moist. NECK: Supple. No JVD. No tenderness. CARDIOVASCULAR: Regular rate and rhythm. No rubs. No gallops. LUNGS: Clear to auscultation. No rales. No wheezing. ABDOMEN: Soft, nontender, and nondistended. Mild tenderness at surgical site. Otherwise, no bleeding. No signs of infection. No drainage. No guarding. No rebound. No rigidity. Positive bowel sounds. EXTREMITIES: No clubbing. No cyanosis. No edema. NEUROLOGICAL: No focal deficits. PSYCHIATRIC: Appropriate mood and affect. The patient with history of hypertension, not previously on blood pressure medication. She was placed on amlodipine during this admission likely from elevated blood pressure due to pain. Discussed with the patient to monitor closely blood pressure daily and if blood pressure more than 140/90, to continue with amlodipine 5 mg daily, otherwise we will defer to her primary care physician as the patient from [place] originally. DISCHARGE DIAGNOSIS: Acute gallstone pancreatitis, cholelithiasis, choledocholithiasis, transaminitis, hyperbilirubinhemia, HTN MEDICATIONS ON DISCHARGE: Cutler 325/5 mg 1 tablet q.6 hours p.r.n. for pain, 10 tablets was given, no refills; omeprazole 20 mg daily; amlodipine 5 mg daily; Colace 100 mg b.i.d.; and senna 8.6 mg 1 tablet p.r.n. for constipation. FOLLOWUP: The patient advised and recommended to follow up closely with primary care physician to repeat liver function tests as outpatient on February 27, 2016, follow results with Dr. Caba or Dr. Allen in office to follow with also Surgery as outpatient and if any concern or recurrent symptoms, to call primary care physician or return to ED for evaluation. The patient agreed with discharge planning, discussed with the patient and at the bedside. Time spent for discharge is 32 minutes. GINA LOZANO MD EA:Angelina/[id number] JOB#:[id number] Electronically Signed By: Gina Lozano MD On 02/29/16 15:19 Co Signature By: Modified Signature By: Gina Lozano MD On 02/29/16 15:17 02/24/2016 [facility] History and Physicals Results Value Date Source History and Physical Patient: Cy WOOD Age: 70 years Sex: F : 1945 Admitting MD: Evert Erwin M.D. Location: [facility] 2SO: 2201: 01 Author: William Farah MD Subjective no comp;laint eating well Objective Vitals and Measurements T: 37.0 ?C (Oral) HR: 68 RR: 16 BP: 136/75 SpO2: 98% Oxygen Amount: Room air WT: 76.5 kg Physical Exam gen: NAD Abd: soft, incisions intact Lab Results Last 24 Hours Basic Metabolic Panel: Hematology: Sodium: 136 (02/24/16) Hgb: 13.6 (02/24/16) Potassium: 3.7 (02/24/16) HgbA1c: ------ Phosphorus: 1.8 (02/24/16) WBC: 10.2 (02/24/16) M.9 (02/24/16) Plt: 245.0 (02/24/16) BUN: 10 (02/24/16) INR: ------ Creatinine: 0.75 (02/24/16) Creatinine Clearance: ------ Additional - Last 24 Hours A/G Ratio: 1.5 (02/24/16) ABS Neut: 7.9 (02/24/16) Albumin: 3.4 (02/24/16) Alkphos: 167 (02/24/16) ALT: 186 (02/24/16) AST: 135 (02/24/16) Baso%: 0.6 (02/24/16) Bili Direct: 0.5 (02/24/16) Bili Total: 0.9 (02/24/16) BUN/Cr Ratio: 13.3 (02/24/16) Calcium: 8.9 (02/24/16) Chloride: 103 (02/24/16) CO2: 26 (02/24/16) Comprehensive Metabolic Panel: Comprehensive Metabolic Panel (02/24/16) eGFR Afr/Am: >60 (02/24/16) eGFR NonAfr/Am: >60 (02/24/16) Eos%: 1.6 (02/24/16) Globulin: 2.3 (02/24/16) Glucose Level: 121 (02/24/16) Hct: 40.3 (02/24/16) Lymph%: 11.0 (02/24/16) MCH: 27.7 (02/24/16) MCHC: 33.7 (02/24/16) MCV: 82.2 (02/24/16) Vance%: 9.7 (02/24/16) Neut%: 77.1 (02/24/16) Protein, Total: 5.7 (02/24/16) RBC: 4.91 (02/24/16) RDW: 13.8 (02/24/16) Assessment/Plan Abdominal pain Acute gallstone pancreatitis Cholelithiasis with choledocholithiasis s/p lap josie with IOC doing well LFT and bilirubin decreasing can go home today follow up in 2 weeks Hypertension b Electronically Signed By: William Farah MD On 02/24/16 10:14 Co Signature By: Modified Signature By: William Farah MD On 02/24/16 10:14 02/24/2016 [facility] History and Physical Patient: RUBINA WOOD (SJR) Age: 70 years Sex: F : 1945 Associated Diagnoses: None Author: Mao Caba MD Basic Information Date of Service: 02/24/2016 09:10. Admission Information: Admit Days = 3. Subjective Patient Complaint: Feels well. Eating well. LFT's decreasing. To be d/c today. If any issues develop see Dr. allen.. Patient States is getting better. Review of Systems Gastrointestinal: Negative. Health Status Intake and Output Allergies.Current medications: Antibiotic Info - Active , Scheduled influenza virus vaccine, inact 0.5 mL, IM, x1 amLODIPine 5 mg Tab: 5 mg, PO, qDay docusate sodium 100 mg Cap: 100 mg, PO, BID heparin 5,000 Unit/mL 1mL Inj: 5,000 Unit, Subcut, q12hr pantoprazole 40 mg/ NS 10mL In 40 mg, IV Push, qDay PRN Meds acetaminophen 325 mg Tab: 650 mg, PO, q4hr, PRN: Fever hydrALAZINE 20 mg/mL 1mL Inj: 10 mg, IV Push, q4hr, PRN: Other (see Comments) magnesium sulfate: 2 gm, 50 mL, 25 mL/hr, IV, Per Parameter, PRN: Other (see Comments) magnesium sulfate / D5W: 1 gm, 100 mL, 100 mL/hr, IV, Per Parameter, PRN: Other (see Comments) magnesium sulfate / SW: 4 gm, 100 mL, 25 mL/hr, IV, Per Parameter, PRN: Other (see Comments) magnesium sulfate /D5W: 3 gm, 50 mL, 16.67 mL/hr, IV, Per Parameter, PRN: Other (see Comments) morphine: 1 - 3 mg, IV Push, q4hr, PRN: Pain Scale (See Comments) nalOXone 0.4 mg/mL 1mL Inj: 0.2 mg, IV Push, q2min, PRN: Respiratory depression ondansetron 2 mg/mL Inj 2mL: 4 mg, IV Push, q4hr, PRN: Nausea / Vomiting 1st Choice oxyCODONE/acetaminophen (5/325 1 Tab, PO, q4hr, PRN: Pain Moderate (4-6) oxyCODONE/acetaminophen (5/325 2 Tab, PO, q4hr, PRN: Pain Severe (7-10) potassium chloride: 10 mEq, 100 mL, 100 mL/hr, IV, Per Parameter, PRN: Hypokalemia potassium chloride: 20 - 40 mEq, PO, Per Parameter, PRN: Hypokalemia senna 8.6 mg Tab: 8.6 mg, PO, qHS, PRN: Constipation . VS/Measurements 24 hr vital signs (All documented values resulted over the prior 24 hours) Low High Last 36.5 37.0 37.0 (02/22 11:35) (02/23 08:02) (02/23 08:02) Temperature PO Temperature PO Temperature PO HR 60 76 68 (02/22 20:00) (02/22 10:10) (02/23 08:02) RR 12 16 16 (02/22 10:45) (02/23 08:02) (02/23 08:02) NIBP 110/57 140/70 136/75 (02/22 10:30) (02/22 20:00) (02/23 08:02) NIBP Mean 70 101 101 (02/22 10:30) (02/23 04:00) (02/23 04:00) Weight (kg) Admit 77.20 (02/20 08:40) Current 76.50 (02/23 04:00) Previous 75.30 (02/22 05:07) Gain/Loss 1.20 Ventilation Low High Last SaO2 96 100 98 (02/22 11:15) (02/23 04:00) (02/23 08:02) L/min 6 (02/24 08:02) (02/22 10:10) (02/23 08:02) Objective Gastrointestinal: Soft, Non-tender. Review / Management Results Review: 24 hr Labs Labs (All documented values resulted over the prior 24 hours..) Hematology WBC 10.20 Hgb 13.60 Hct 40.30 Plt 245.00 Chemistry Na 136.00 K 3.70 Cl 103.00 CO2 26.00 Gluc 121.00H Bun 10.00 Cr 0.75 Ca 8.90 D Bili 0.50 T Bili 0.90 Enzymes Alkphos 167.00H ALT 186H AST 135H Proteins Alb 3.40 (02/23 05:01) . Radiology Results Radiologist's interpretation 24hrs Name: RUBINA WOOD Account: [id number] : 1945 Result Date: 02/23/16 09:50 Verified By: Travis Starr MD at 02/23/16 10:02 Report : XR CHOLANGIO/PANCREAT IN OR PATIENT: RUBINA WOOD Referring: WILLIAM FARAHMRN: [id number] AKBAR LANDINDESDOB: 1945 Age: 70 Gender: F MARIN: [id number]#: [id number] of Exam: 02/23/2016 at 9:28 Room # 2201 Patient Type: IN PROCEDURE: XR CHOLANGIO/PANC INTRAOP INDICATIONS: abd pain CONCLUSION: 1. Satisfactory intraoperative cholangiogram without evidence of retained calculi. Modest biliary ductal dilatation is present. [place] [facility] [place]PANCREATIC DUCT, 02/22/2016, 12:55. FINDINGS: BILIARY DUCTS: Extrahepatic and central intrahepatic ducts are visualized. No filling defects or stricture. Normal biliary to bowel transit of injected contrast. Moderate dilatation of the extrahepatic ducts are noted. Contrast is seen to flow into the duodenum.OTHER: Negative. Dictated by: Travis Starr M.D. on 02/23/2016 at 10:02 Approved by: Travis Starr M.D. on 02/23/2016 at 10:02 02/23/16 10:02 ++++++++++++++++++++++++++++++++ +++++++++++++++++++++++ Impression and Plan Diagnosis Cholelithiasis with choledocholithiasis (DAY99-KO K80.70, Discharge, Medical). Plan OK to d/c GI nice.. Electronically Signed By: Mao Caba MD On 02/24/16 09:12 Co Signature By: Modified Signature By: 02/24/2016 [facility] History and Physical Patient: Cy WOOD Age: 70 years Sex: F : 1945 Admitting MD: Evert Erwin M.D. Location: [facility] 2SO: 2201: 01 Author: Akbar Almeida MD Subjective Per nurse, no adverse overnight events, patient scheduled for lap josie today, pain controlled but feels nervous/anxious. Patient examined post surgery, no complications, pain controlled, tolerated eating, walking, no BM or gas. Hopes to go home soon. Review of Systems Constitutional: No fevers, chills, sweats Eye: No recent visual problems ENMT: No ear pain, nasal congestion, sore throat Respiratory: No shortness of breath, cough Cardiovascular: No Chest pain, palpitations, syncope Gastrointestinal: No nausea, vomiting, diarrhea Genitourinary: No hematuria Objective Vitals and Measurements T: 36.7 ?C (Oral) HR: 60 RR: 16 BP: 135/76 SpO2: 100% Oxygen Amount: Room air WT: 75.3 kg Physical Exam GEN: No acute distress, alert and oriented x 3 HEENT: sclera non-icteric, oropharynx clear, mucous membranes moist NECK: supple, no jugular venous distention CV: regular rate and rhythm, no rubs or gallops Lungs: clear to auscultation, no wheezing, rales or rhonchi ABD: soft, nontender, mildly distended, normoactive bowel sounds, no guarding or rebound, laparoscopic incisions with no bleeding or drainage EXTR: no cyanosis, clubbing or edema NEURO: Non-focal, moves all extremities Lab Results Last 24 Hours Basic Metabolic Panel: Hematology: Sodium: 137 (02/23/16) Hgb: 14.1 (02/23/16) Potassium: 3.7 (02/23/16) HgbA1c: ------ Phosphorus: 3.3 (02/23/16) WBC: 9.0 (02/23/16) M.0 (02/23/16) Plt: 245.0 (02/23/16) BUN: 8 (02/23/16) INR: ------ Creatinine: 0.67 (02/23/16) Creatinine Clearance: ------ Additional - Last 24 Hours A/G Ratio: 1.5 (02/23/16) ABS Neut: 7.0 (02/23/16) Albumin: 3.7 (02/23/16) Alkphos: 169 (02/23/16) ALT: 224 (02/23/16) AST: 280 (02/23/16) Baso%: 1.0 (02/23/16) Bili Direct: 2.4 (02/23/16) Bili Total: 3.3 (02/23/16) BUN/Cr Ratio: 11.9 (02/23/16) Calcium: 8.9 (02/23/16) Chloride: 102 (02/23/16) CO2: 22 (02/23/16) eGFR Afr/Am: >60 (02/23/16) eGFR NonAfr/Am: >60 (02/23/16) Eos%: 0.6 (02/23/16) Globulin: 2.4 (02/23/16) Glucose Level: 71 (02/23/16) Hct: 42.9 (02/23/16) Hepatic Function Panel: Hepatic Function Panel (02/23/16) Lipase: 17 (02/23/16) Lipase Level: Lipase (02/23/16) Lymph%: 10.0 (02/23/16) MCH: 27.4 (02/23/16) MCHC: 32.7 (02/23/16) MCV: 83.7 (02/23/16) Vance%: 9.9 (02/23/16) MRSA Surveillance Screen: See Report (02/23/16) Neut%: 78.5 (02/23/16) Protein, Total: 6.1 (02/23/16) RBC: 5.13 (02/23/16) RDW: 13.6 (02/23/16) Renal Function Panel: Renal Function Panel (02/23/16) Report: Report (02/23/16) Diagnostic Results Medications Scheduled influenza virus vaccine, inact 0.5 mL, IM, x1 amLODIPine 5 mg Tab: 5 mg, PO, qDay docusate sodium 100 mg Cap: 100 mg, PO, BID heparin 5,000 Unit/mL 1mL Inj: 5,000 Unit, Subcut, q12hr pantoprazole 40 mg/ NS 10mL In 40 mg, IV Push, qDay PRN Meds acetaminophen 325 mg Tab: 650 mg, PO, q4hr, PRN: Fever hydrALAZINE 20 mg/mL 1mL Inj: 10 mg, IV Push, q4hr, PRN: Other (see Comments) morphine: 1 - 3 mg, IV Push, q4hr, PRN: Pain Scale (See Comments) nalOXone 0.4 mg/mL 1mL Inj: 0.2 mg, IV Push, q2min, PRN: Respiratory depression ondansetron 2 mg/mL Inj 2mL: 4 mg, IV Push, q4hr, PRN: Nausea / Vomiting 1st Choice oxyCODONE/acetaminophen (5/325 1 - 2 Tab, PO, q4hr, PRN: Pain senna 8.6 mg Tab: 8.6 mg, PO, qHS, PRN: Constipation Assessment/Plan Acute gallstone pancreatitis s/p ERCP POD # 1 and laparoscopic cholecystectomy POD #0 -U/S imaging with cholelithiasis, choledocolithiasis, biliary dilation and gallbladder wall thickening -lipase elevated at >1000 on admission, now normalized with concervative management -LFTs and T.bili trending up post ERCP yesterday, will monitor -GI, on consult, ERCP with sphincterotomy and multiple stone extraction from CBD -Gen Surgery, Dr. Farah, on consult, lap josie today -pain meds and antiemetics available -started on orals today, encourage IS and ambulation -bowel care while on pain meds Transaminitis -LFTs and T. bili increased significantly post ERCP -likely edema but concerned for possible unextracted stones, multiple stones removed from cystic and common bile duct but intra-operative cholangiogram with no stones noted -if continues to trend up, will likely need repeat ERCP -continue to monitor Elevated blood pressure -patient denies hx of hypertension, elevated likely due to pain and IV fluids -IV fluids discontinued after resolution of pancreatitis, however still elevated -started amlodipine with improved control VTE ppx: SCDs and heparin sc GI ppx: ppi FULL CODE Dipso: patient post b Electronically Signed By: Akbar Almeida MD On 02/23/16 22:13 Co Signature By: Modified Signature By: Akbar Almeida MD On 02/23/16 18:05 02/23/2016 [facility] History and Physical Patient: RUBINA WOOD (SJR) Age: 70 years Sex: F : 1945 Associated Diagnoses: None Author: Mao Caba MD Basic Information Date of Service: 02/23/2016 11:46. Admission Information: Admit Days = 3. Subjective Patient Complaint: The patient had ERCP yesterday with CBD stone removal. Had cambodian choly today. Her LFT's spiked today with her bilirubin jumping to 3.3 and her AST and ALT to the 200's. They had previously been normal. IOC saw no definite stones. Dr. Farah felt it could be edema. He asked we follow while here and if the LFT's continue to rise consider f/u ERCP.. Patient States there is no change. Review of Systems Gastrointestinal: Negative. Health Status Intake and Output Allergies.Current medications: Antibiotic Info - Active , Scheduled influenza virus vaccine, inact 0.5 mL, IM, x1 amLODIPine 5 mg Tab: 5 mg, PO, qDay docusate sodium 100 mg Cap: 100 mg, PO, BID heparin 5,000 Unit/mL 1mL Inj: 5,000 Unit, Subcut, q12hr pantoprazole 40 mg/ NS 10mL In 40 mg, IV Push, qDay PRN Meds acetaminophen 325 mg Tab: 650 mg, PO, q4hr, PRN: Fever hydrALAZINE 20 mg/mL 1mL Inj: 10 mg, IV Push, q4hr, PRN: Other (see Comments) magnesium sulfate: 2 gm, 50 mL, 25 mL/hr, IV, Per Parameter, PRN: Other (see Comments) magnesium sulfate / D5W: 1 gm, 100 mL, 100 mL/hr, IV, Per Parameter, PRN: Other (see Comments) magnesium sulfate / SW: 4 gm, 100 mL, 25 mL/hr, IV, Per Parameter, PRN: Other (see Comments) magnesium sulfate /D5W: 3 gm, 50 mL, 16.67 mL/hr, IV, Per Parameter, PRN: Other (see Comments) morphine: 1 - 3 mg, IV Push, q4hr, PRN: Pain Scale (See Comments) nalOXone 0.4 mg/mL 1mL Inj: 0.2 mg, IV Push, q2min, PRN: Respiratory depression ondansetron 2 mg/mL Inj 2mL: 4 mg, IV Push, q4hr, PRN: Nausea / Vomiting 1st Choice ondansetron 2 mg/mL Inj 2mL: 4 mg, IV Push, q4hr, PRN: Nausea / Vomiting 1st Choice oxyCODONE/acetaminophen (5/325 1 - 2 Tab, PO, q4hr, PRN: Pain potassium chloride: 10 mEq, 100 mL, 100 mL/hr, IV, Per Parameter, PRN: Hypokalemia potassium chloride: 20 - 40 mEq, PO, Per Parameter, PRN: Hypokalemia senna 8.6 mg Tab: 8.6 mg, PO, qHS, PRN: Constipation Discontinued ePHEDrine 50 mg/mL 1mL Inj: 5 mg, IV Push, q5min, PRN: Other (see Comments) fentaNYL 50 mcg/mL 2 mL Inj: 25 mcg, IV Push, q3min, PRN: PACU Pain 1st Choice meperidine 25 mg/mL 1mL Inj: 10 mg, IV Push, Per Parameter, PRN: Shivering morphine: 2-6 mg, IV Push, q5min, PRN: PACU Pain 2nd Choice nalOXone 0.4 mg/mL 1mL Inj: 0.04 mg, IV Push, q1min, PRN: Respiratory depression ondansetron 2 mg/mL Inj 2mL: 4 mg, IV Push, x1, PRN: PACU Nausea / Vomiting 1st Choice IV Medications NaCl 0.9%: 50 mL/hr, IV, Stop: 03/23/16 17:39:00 PST . VS/Measurements 24 hr vital signs (All documented values resulted over the prior 24 hours) Low High Last 36.5 37.1 36.5 (02/22 11:35) (02/22 05:00) (02/22 11:35) Temperature PO Temperature PO Temperature PO HR 60 98 62 (02/22 11:15) (02/21 12:20) (02/22 11:35) RR 11 18 16 (02/21 13:55) (02/22 07:45) (02/22 11:35) NIBP 110/57 168/84 118/64 (02/22 10:30) (02/21 15:00) (02/22 11:35) NIBP Mean 70 101 71 (02/22 10:30) (02/21 13:55) (02/22 11:00) Weight (kg) Admit 77.20 (02/20 08:40) Current 75.30 (02/22 05:07) Previous 75.70 (02/21 08:00) Gain/Loss -0.40 Ventilation Low High Last SaO2 96 100 99 (02/22 11:15) (02/22 10:20) (02/22 11:35) L/min 6 (02/22 11:35) (02/22 10:25) (02/22 11:35) Objective Gastrointestinal: tender post op. Review / Management Results Review: 24 hr Labs Labs (All documented values resulted over the prior 24 hours..) Hematology WBC 9.00 Hgb 14.10 Hct 42.90 Plt 245.00 Chemistry Na 137.00 K 3.70 Cl 102.00 CO2 22.00 Gluc 71.00 Bun 8.00L Cr 0.67 Ca 8.90 D Bili 2.40H T Bili 3.30H Enzymes Alkphos 169.00H ALT 224H AST 280H Proteins Alb 3.70 (02/22 05:13) . Radiology Results Radiologist's interpretation 24hrs Name: RUBINA WOOD Account: [id number] : 1945 Result Date: 02/23/16 09:50 Verified By: Travis Starr MD at 02/23/16 10:02 Report : XR CHOLANGIO/PANCREAT IN OR PATIENT: RUBINA WOOD Referring: WILLIAM SOFIMRN: [id number] AKBAR MARCANONANCYDOB: 1945 Age: 70 Gender: F MARIN: [id number]#: [id number] of Exam: 02/23/2016 at 9:28 Room # 2201 Patient Type: IN PROCEDURE: XR CHOLANGIO/PANC INTRAOP INDICATIONS: abd pain CONCLUSION: 1. Satisfactory intraoperative cholangiogram without evidence of retained calculi. Modest biliary ductal dilatation is present. [place] [facility] [place]PANCREATIC DUCT, 02/22/2016, 12:55. FINDINGS: BILIARY DUCTS: Extrahepatic and central intrahepatic ducts are visualized. No filling defects or stricture. Normal biliary to bowel transit of injected contrast. Moderate dilatation of the extrahepatic ducts are noted. Contrast is seen to flow into the duodenum.OTHER: Negative. Dictated by: Travis Starr M.D. on 02/23/2016 at 10:02 Approved by: Travis Starr M.D. on 02/23/2016 at 10:02 02/23/16 10:02 ++++++++++++++++++++++++++++++++ +++++++++++++++++++++++ Result Date: 02/22/16 13:45 Verified By: Tha Earl MD at 02/22/16 14:39 Report : XR ERCP BILIARY+PANCREATIC DUCT PATIENT: RUBINA WOOD Referring: LESTER ALLENMRN: [id number] AKBAR RANJANB: 1945 Age: 70 Gender: F MARIN: [id number]#: [id number] of Exam: 02/22/2016 at 12:55 Room # 2201 Patient Type: IN [facility] time: 15seconds Isovue 370/25mL PROCEDURE: XR ERCP, ENDOSCOPIC INDICATIONS: pain CONCLUSION: Limited spot film images obtained during an ERCP procedure as described. TECHNIQUE: Multiple spot films were obtained by the cooker mechanic during an ERCP procedure. The procedural report will be dictated by the cooker mechanic. COMPARISON: None. FINDINGS: Spot film images demonstrate the endoscope obscuring a portion of the extrahepatic or biliary ducts. Contrast material within the ducts noted. Full evaluation of the biliary ductal system is not possible based on these limited images. Images demonstrate balloon sweeping of the duct. Please see procedural report for full description. Dictated by: Tha Earl M.D. on 02/22/2016 at 14:37 Approved by: Tha Earl M.D. on 02/22/2016 at 14:39 02/22/16 14:39 ++++++++++++++++++++++++++++++++ +++++++++++++++++++++++ Impression and Plan Diagnosis Cholelithiasis with choledocholithiasis ([id number] K80.70, Discharge, Medical). Plan Monitor LFT's daily. If they rise further consider an ultrasoun to see if the CBD is dilating. Slightly dilated on IOC.. Electronically Signed By: Mao Caba MD On 02/23/16 11:51 Co Signature By: Modified Signature By: 02/23/2016 [facility] History and Physical Patient: RUBINA WOOD (SJR) Age: 70 years Sex: F : 1945 Associated Diagnoses: None Author: William Farah MD Basic Information Date of Service: 02/23/2016 08:41. Admission Information: Admit Days = 2, Patient Type = Inpatient . Subjective Patient States is getting better. Health Status Intake and Output 24 hour I&O data 24 hour I&O Yesterday: Intake: 1967.00 Output: 2000.00 Balance: -33.00 Today: Intake: 0.00 Output: 0.00 Balance: 0.00 Allergies: Allergic Reactions (All) Mild Penicillins- No reactions were documented. Current medications: Antibiotic Info - Active , Scheduled influenza virus vaccine, inact 0.5 mL, IM, x1 amLODIPine 5 mg Tab: 5 mg, PO, qDay docusate sodium 100 mg Cap: 100 mg, PO, BID pantoprazole 40 mg/ NS 10mL In 40 mg, IV Push, qDay PRN Meds acetaminophen 325 mg Tab: 650 mg, PO, q4hr, PRN: Fever ePHEDrine 50 mg/mL 1mL Inj: 5 mg, IV Push, q5min, PRN: Other (see Comments) fentaNYL 50 mcg/mL 2 mL Inj: 25 mcg, IV Push, q3min, PRN: PACU Pain 1st Choice hydrALAZINE 20 mg/mL 1mL Inj: 10 mg, IV Push, q4hr, PRN: Other (see Comments) magnesium sulfate: 2 gm, 50 mL, 25 mL/hr, IV, Per Parameter, PRN: Other (see Comments) magnesium sulfate / D5W: 1 gm, 100 mL, 100 mL/hr, IV, Per Parameter, PRN: Other (see Comments) magnesium sulfate / SW: 4 gm, 100 mL, 25 mL/hr, IV, Per Parameter, PRN: Other (see Comments) magnesium sulfate /D5W: 3 gm, 50 mL, 16.67 mL/hr, IV, Per Parameter, PRN: Other (see Comments) meperidine 25 mg/mL 1mL Inj: 10 mg, IV Push, Per Parameter, PRN: Shivering morphine: 2-6 mg, IV Push, q5min, PRN: PACU Pain 2nd Choice morphine: 1 - 3 mg, IV Push, q4hr, PRN: Pain Scale (See Comments) nalOXone 0.4 mg/mL 1mL Inj: 0.2 mg, IV Push, q2min, PRN: Respiratory depression nalOXone 0.4 mg/mL 1mL Inj: 0.04 mg, IV Push, q1min, PRN: Respiratory depression ondansetron 2 mg/mL Inj 2mL: 4 mg, IV Push, q4hr, PRN: Nausea / Vomiting 1st Choice ondansetron 2 mg/mL Inj 2mL: 4 mg, IV Push, q4hr, PRN: Nausea / Vomiting 1st Choice ondansetron 2 mg/mL Inj 2mL: 4 mg, IV Push, x1, PRN: PACU Nausea / Vomiting 1st Choice potassium chloride: 10 mEq, 100 mL, 100 mL/hr, IV, Per Parameter, PRN: Hypokalemia potassium chloride: 20 - 40 mEq, PO, Per Parameter, PRN: Hypokalemia senna 8.6 mg Tab: 8.6 mg, PO, qHS, PRN: Constipation IV Medications NaCl 0.9%: 50 mL/hr, IV, Stop: 03/23/16 17:39:00 PST . VS/Measurements 24 hr vital signs (All documented values resulted over the prior 24 hours) Low High Last 36.8 37.1 36.9 (02/21 15:00) (02/22 05:00) (02/22 07:45) Temperature PO Temperature PO Temperature PO HR 67 98 71 (02/22 00:00) (02/21 12:20) (02/22 07:45) RR 11 18 18 (02/21 13:55) (02/22 07:45) (02/22 07:45) NIBP 122/77 168/84 140/73 (02/22 00:00) (02/21 15:00) (02/22 07:45) NIBP Mean 94 101 101 (02/21 13:50) (02/21 13:55) (02/21 13:55) Weight (kg) Admit 77.20 (02/20 08:40) Current 75.30 (02/22 05:07) Previous 75.70 (02/21 08:00) Gain/Loss -0.40 Ventilation Low High Last SaO2 97 100 100 (02/21 13:50) (02/22 07:45) (02/22 07:45) L/min (02/22 07:45) (02/21 10:00) (02/22 07:45) , Last Documented Vital Signs Vital Signs (Most Recent ) Temp PO Heart Rate Resp Rate 36.9 71 18 (02/22 07:45) (02/22 07:45) (02/22 07:45) Non Invasive BP NIBP Mean AdmitWeight CurrentWeight BMI 140 / 73 101 77.20 75.30 29.06 (02/22 07:45) (02/21 13:55) (02/20 08:40) (02/22 05:07) (02/20 13:07) Ventilation SaO2 L/min 100 Room air (02/22 07:45) (02/22 07:45) Objective General: No acute distress. Gastrointestinal: Soft, Non-tender. Review / Management Results Review: 24 hr Labs Labs (All documented values resulted over the prior 24 hours..) Hematology WBC 9.00 Hgb 14.10 Hct 42.90 Plt 245.00 Chemistry Na 137.00 K 3.70 Cl 102.00 CO2 22.00 Gluc 71.00 Bun 8.00L Cr 0.67 Ca 8.90 D Bili 2.40H T Bili 3.30H Enzymes Alkphos 169.00H ALT 224H AST 280H Proteins Alb 3.70 (02/22 05:13) . Radiology Results Radiologist's interpretation 24hrs Name: RUBINA WOOD Account: [id number] : 1945 Result Date: 02/22/16 13:45 Verified By: Tha Earl MD at 02/22/16 14:39 Report : XR ERCP BILIARY+PANCREATIC DUCT PATIENT: RUBINA WOOD Referring: LESTER ALLENMRN: [id number] AKBAR ALMEIDADOB: 1945 Age: 70 Gender: F MARIN: [id number]#: [id number] of Exam: 02/22/2016 at 12:55 Room # 2201 Patient Type: IN flluoro time: 15seconds Isovue 370/25mL PROCEDURE: XR ERCP, ENDOSCOPIC INDICATIONS: pain CONCLUSION: Limited spot film images obtained during an ERCP procedure as described. TECHNIQUE: Multiple spot films were obtained by the cooker mechanic during an ERCP procedure. The procedural report will be dictated by the cooker mechanic. COMPARISON: None. FINDINGS: Spot film images demonstrate the endoscope obscuring a portion of the extrahepatic or biliary ducts. Contrast material within the ducts noted. Full evaluation of the biliary ductal system is not possible based on these limited images. Images demonstrate balloon sweeping of the duct. Please see procedural report for full description. Dictated by: Tha Earl M.D. on 02/22/2016 at 14:37 Approved by: Tha Earl M.D. on 02/22/2016 at 14:39 02/22/16 14:39 ++++++++++++++++++++++++++++++++ +++++++++++++++++++++++ Result Date: 02/22/16 10:32 Verified By: Tha Earl MD at 02/22/16 11:33 Report : XR CHEST 1 VIEW PORTABLE PATIENT: RUBINA WOOD Referring: AKBAR ALMEIDAMRN: [id number] EVERT ERWINDOB: 1945 Age: 70 Gender: F MARIN: [id number]#: [id number] of Exam: 02/22/2016 at 10:34 Room # 2201 Patient Type: IN PROCEDURE: XR CHEST, 1 VIEW INDICATIONS: pre-op CONCLUSION: Unremarkable chest COMPARISON: None. FINDINGS: LUNGS: No significant pulmonary parenchymal abnormalities. VASCULATURE: Unremarkable pulmonary vasculature. CARDIAC: No cardiac silhouette abnormality or cardiomegaly. MEDIASTINUM: No visible mass or adenopathy. PLEURA: No effusion, pleural thickening, or pneumothorax. BONES: No acute fracture or visible osseous lesion. OTHER: Negative. Dictated by: Tha Earl M.D. on 02/22/2016 at 11:33 Approved by: Tha Earl M.D. on 02/22/2016 at 11:33 02/22/16 11:33 ++++++++++++++++++++++++++++++++ +++++++++++++++++++++++ Impression and Plan Diagnosis Cholelithiasis with choledocholithiasis ([id number] K80.70, Discharge, Medical). Status post ERCP, and doing well. Bilirubin is elevated today, but she is otherwise looking well. There does not appear to be any complication from her procedure. We will proceed with planned laparoscopic cholecystectomy today. Questions were answered. Indications, risks, benefits and alternatives were discussed with patient.. Electronically Signed By: William Farah MD On 02/23/16 08:43 Co Signature By: Modified Signature By: 02/23/2016 [facility] History and Physical Patient: Cy WOOD Age: 70 years Sex: F : 1945 Admitting MD: Evert Erwin M.D. Location: [facility] 2SO: 2201: 01 Author: Akbar Almeida MD Subjective Per nurse, no adverse overnight events except patient's blood pressure elevated in 160s, IV fluids reduced. Patient scheduled for ERCP today. Patient examined in morning walking in the [place], states feels well, denies any abdominal pain, nausea or vomiting. Feels nervous about ERCP today Review of Systems Constitutional: No fevers, chills, sweats Eye: No recent visual problems ENMT: No ear pain, nasal congestion, sore throat Respiratory: No shortness of breath, cough Cardiovascular: No Chest pain, palpitations, syncope Gastrointestinal: No nausea, vomiting, diarrhea Genitourinary: No hematuria Objective Vitals and Measurements T: 36.9 ?C (Oral) HR: 67 RR: 16 BP: 124/65 SpO2: 99% Oxygen Amount: Room air WT: 75.7 kg Physical Exam GEN: No acute distress, alert and oriented x 3 HEENT: PERRL, non-icteric sclera, oropharynx clear, mucous membranes moist NECK: supple, no jugular venous distention CV: regular rate and rhythm, no rubs or gallops Lungs: clear to auscultation, no wheezing, rales or rhonchi ABD: soft, nontender, nondistended, normoactive bowel sounds, no guarding or rebound. EXTR: no cyanosis, clubbing or edema NEURO: Non-focal, moves all extremities Lab Results Last 24 Hours Lipid Profile: Basic Metabolic Panel: Hematology: Triglyceride: ------ Sodium: 142 (02/22/16) Hgb: 14.0 (02/22/16) Cholesterol Total: ------ Potassium: 4.4 (02/22/16) HgbA1c: ------ HDL Cholesterol: ------ Phosphorus: 3.4 (02/22/16) WBC: 7.0 (02/22/16) LDL Ca (02/22/16) M.9 (02/22/16) Plt: 224.0 (02/22/16) BUN: 9 (02/22/16) INR: 1.14 (02/22/16) Creatinine: 0.64 (02/22/16) Creatinine Clearance: ------ Additional - Last 24 Hours A/G Ratio: 1.7 (02/22/16) ABS Neut: 4.3 (02/22/16) Albumin: 3.7 (02/22/16) Alkphos: 82 (02/22/16) ALT: 41 (02/22/16) AST: 36 (02/22/16) Baso%: 2.1 (02/22/16) Bili Direct: 0.2 (02/22/16) Bili Total: 0.6 (02/22/16) BUN/Cr Ratio: 14.1 (02/22/16) Calcium: 8.7 (02/22/16) Chloride: 108 (02/22/16) Cholest/HDL Ratio: 4.0 (02/22/16) Cholesterol: 193 (02/22/16) CO2: 25 (02/22/16) Culture Urine: See Report (02/22/16) eGFR Afr/Am: >60 (02/22/16) eGFR NonAfr/Am: >60 (02/22/16) Eos%: 6.2 (02/22/16) Est Mean Bld Glu: 105 (02/22/16) Globulin: 2.2 (02/22/16) Glucose Level: 85 (02/22/16) Hct: 42.3 (02/22/16) HDL: 48 (02/22/16) Hepatic Function Panel: Hepatic Function Panel (02/22/16) HgbA1C: 5.3 (02/22/16) LDL/HDL: 2.7 (02/22/16) Lipase: 39 (02/22/16) Lipase Level: Lipase (02/22/16) Lymph%: 22.9 (02/22/16) MCH: 27.5 (02/22/16) MCHC: 33.0 (02/22/16) MCV: 83.5 (02/22/16) Vance%: 7.3 (02/22/16) Neut%: 61.5 (02/22/16) Protein, Total: 5.9 (02/22/16) PT: 12.2 (02/22/16) RBC: 5.07 (02/22/16) RDW: 13.7 (02/22/16) Renal Function Panel: Renal Function Panel (02/22/16) Report: Report (02/22/16) Triglycerides: 79 (02/22/16) TSH: 2.167 (02/22/16) VLDL: 16 (02/22/16) Assessment/Plan Acute gallstone pancreatitis -U/S imaging with cholelithiasis, choledocolithiasis, biliary dilation and gallbladder wall thickening -symptom management with npo, IV fluids, pain control and antiemetics -lipase elevated at >1000 on admission, trended down to 39 today -LFTs with mild elevation of AST, will monitor -GI, on consult, ERCP today with Dr. Allen, tolerated procedure had sphincterotomy with multiple stone extraction -Gen Surgery, Dr. Farah, on consult, plans to take patient to OR tomorrow for Cholecystecomy Elevated blood pressure -patient denies hx of hypertension, elevated likely due to pain and IV fluids -IV fluids discontinued -on amlopine, continued VTE ppx: SCDs, hold antiocagulation until after surgery, patient ambulating GI ppx: ppi FULL CODE Dipso: patient had ERCP today with plans for Lap Josie tomorrow, likely discharge home in 2 to 3 days b Electronically Signed By: Akbar Almeida MD On 02/22/16 23:40 Co Signature By: Modified Signature By: Akbar Almeida MD On 02/22/16 20:35 02/23/2016 [facility] History and Physical Patient: Cy WOOD Age: 70 years Sex: F : 1945 Admitting MD: Evert Erwin M.D. Location: [facility] 2SO: 2201: 01 Author: William Farah MD Subjective feeling ok, /sp ERCP with removal of several stones Objective Vitals and Measurements T: 37.0 ?C (Oral) HR: 73 RR: 11 BP: 157/81 SpO2: 98% Oxygen Amount: Room air WT: 75.7 kg Physical Exam gen: NAD Abd: soft, not tender Lab Results Last 24 Hours Lipid Profile: Basic Metabolic Panel: Hematology: Triglyceride: ------ Sodium: 142 (02/22/16) Hgb: 14.0 (02/22/16) Cholesterol Total: ------ Potassium: 4.4 (02/22/16) HgbA1c: ------ HDL Cholesterol: ------ Phosphorus: 3.4 (02/22/16) WBC: 7.0 (02/22/16) LDL Ca (02/22/16) M.9 (02/22/16) Plt: 224.0 (02/22/16) BUN: 9 (02/22/16) INR: 1.14 (02/22/16) Creatinine: 0.64 (02/22/16) Creatinine Clearance: ------ Additional - Last 24 Hours A/G Ratio: 1.7 (02/22/16) ABS Neut: 4.3 (02/22/16) Albumin: 3.7 (02/22/16) Alkphos: 82 (02/22/16) ALT: 41 (02/22/16) AST: 36 (02/22/16) Baso%: 2.1 (02/22/16) Bili Direct: 0.2 (02/22/16) Bili Total: 0.6 (02/22/16) BUN/Cr Ratio: 14.1 (02/22/16) Calcium: 8.7 (02/22/16) Chloride: 108 (02/22/16) Cholest/HDL Ratio: 4.0 (02/22/16) Cholesterol: 193 (02/22/16) CO2: 25 (02/22/16) Culture Urine: See Report (02/22/16) eGFR Afr/Am: >60 (02/22/16) eGFR NonAfr/Am: >60 (02/22/16) Eos%: 6.2 (02/22/16) Est Mean Bld Glu: 105 (02/22/16) Globulin: 2.2 (02/22/16) Glucose Level: 85 (02/22/16) Hct: 42.3 (02/22/16) HDL: 48 (02/22/16) Hepatic Function Panel: Hepatic Function Panel (02/22/16) HgbA1C: 5.3 (02/22/16) LDL/HDL: 2.7 (02/22/16) Lipase: 39 (02/22/16) Lipase Level: Lipase (02/22/16) Lymph%: 22.9 (02/22/16) MCH: 27.5 (02/22/16) MCHC: 33.0 (02/22/16) MCV: 83.5 (02/22/16) Vance%: 7.3 (02/22/16) Neut%: 61.5 (02/22/16) Protein, Total: 5.9 (02/22/16) PT: Prothrombin Time (02/22/16) RBC: 5.07 (02/22/16) RDW: 13.7 (02/22/16) Renal Function Panel: Renal Function Panel (02/22/16) Report: Report (02/22/16) Triglycerides: 79 (02/22/16) TSH: 2.167 (02/22/16) VLDL: 16 (02/22/16) Assessment/Plan Abdominal pain Acute gallstone pancreatitis Cholelithiasis with choledocholithiasis s/p ERCP again discussed lap josie she wishes to proceed will schedule for lap josie in am Hypertension b Electronically Signed By: William Farah MD On 02/22/16 15:00 Co Signature By: Modified Signature By: William Farah MD On 02/22/16 15:00 02/22/2016 [facility] History and Physical Patient: Cy WOOD Age: 70 years Sex: F : 1945 Admitting MD: Evert Erwin M.D. Location: [facility] 2SO: 2204: 01 Author: Akbar Almeida MD Chief Complaint pain in mid abdomin History of Present Illness Patient is a 70-year-old female with no significant past medical history who presents to the ED with complaints of abdominal pain. The patient is visiting from [place] when one week ago she started to have abdominal pain localized in the right upper quadrant. She came to the ED where ultrasound showed cholelithiasis but no signs of cholecystitis with mild common bile duct dilation. She was discharged home on pain medications and antiemetics with instructions to follow-up with her primary care provider. She said her symptoms improved and then reoccurred last evening after eating. Pain was localized in the mid epigastric region with radiation to the right upper quadrant and associated with nausea and vomiting. She describes the emesis as bilious. Her symptoms persisted overnight and this morning return to the ED for further evaluation. She denied any fevers, chills, shortness of breath, or chest pain. In the ED, the patient was hemodynamically stable but hypertensive with temperature 36.7, heart rate 70, respiratory rate 16, blood pressure 196/106, and SPO2 100% on room air. Labs of CBC and CMP were unremarkable except for mild elevation of AST. Lipase was elevated at 1477 which was elevated from her previous ED visit last week. UA was unremarkable. EKG was normal sinus rhythm. Ultrasound of the abdomen demonstrated cholelithiasis with choledocholithiasis and gallbladder wall thickening with biliary dilation. A 4.3 mm stone was within the common bile duct common bile duct dilation of 10 mm. His given IV fluids, ketorolac, Zofran, and morphine with improvement in her symptoms. She was admitted to the hospitalist service for further management. PCP: Dr. Elsie Carranza [place] Surrogate Decision Maker: Full Code Review of Systems Constitutional: No fevers, chills, sweats Eye: No recent visual problems ENMT: No ear pain, nasal congestion, sore throat Respiratory: No shortness of breath, cough Cardiovascular: No Chest pain, palpitations, syncope Gastrointestinal: + nausea, + vomiting, no diarrhea Genitourinary: No hematuria Olvin/Lymph: Negative for bruising tendency, swollen lymph glands Endocrine: Negative for excessive thirst, excessive hunger Musculoskeletal: No back pain, neck pain, joint pain, muscle pain, decreased range of motion Integumentary: No rash, pruritus, abrasions Neurologic: Alert and oriented X 4 Psychiatric: No anxiety, depression Objective Vitals and Measurements T: 36.5 ?C (Oral) HR: 74 RR: 16 BP: 178/88 SpO2: 100% Oxygen Amount: Room air Physical Exam GENERAL: Nontoxic, no acute distress, alert, oriented x 3 HEENT: Normocephalic, atraumatic, no scleral icterus or conjunctival injection, MMM OP clear NECK: supple, no rigidity. No lymphadenopathy, bruits, or thyromegaly LUNGS: Clear to auscultation bilaterally. No crackles or wheezes. CV: RRR, normal S1/S2, no murmurs. No jugular venous distention. GI: soft, nontender, normoactive bowel sounds, no rebound, guarding : no suprapubic or flank tenderness. BACK: no spinal or paraspinal tenderness. EXT: No cyanosis or distal pitting edema, well perfused. SKIN: warm and dry, no ulcerations. NEURO: Cranial nerves 2-12 grossly intact, no gross motor deficits, strength 5/5 bilateral upper and lower extremity large muscle groups, moves all extremities independently Lab Results Last 24 Hours Basic Metabolic Panel: Hematology: Sodium: 139 (02/21/16) Hgb: 15.1 (02/21/16) Potassium: 4.1 (02/21/16) HgbA1c: ------ Phosphorus: ------ WBC: 9.9 (02/21/16) Mg: ------ Plt: 264.0 (02/21/16) BUN: 15 (02/21/16) INR: ------ Creatinine: 0.76 (02/21/16) Creatinine Clearance: ------ Additional - Last 24 Hours A/G Ratio: 1.5 (02/21/16) ABS Neut: 6.5 (02/21/16) Albumin: 4.1 (02/21/16) Alkphos: 82 (02/21/16) ALT: 48 (02/21/16) Appearance: Slightly Hazy (02/21/16) AST: 82 (02/21/16) Baso%: 1.2 (02/21/16) Bili Total: 0.7 (02/21/16) BUN/Cr Ratio: 19.7 (02/21/16) Calcium: 9.6 (02/21/16) Chloride: 102 (02/21/16) CO2: 29 (02/21/16) Color: Yellow (02/21/16) Comprehensive Metabolic Panel: Comprehensive Metabolic Panel (02/21/16) eGFR Afr/Am: >60 (02/21/16) eGFR NonAfr/Am: >60 (02/21/16) Eos%: 4.8 (02/21/16) Globulin: 2.8 (02/21/16) Glucose Level: 102 (02/21/16) Hct: 45.2 (02/21/16) Lipase: 1477 (02/21/16) Lipase Level: Lipase (02/21/16) Lymph%: 21.6 (02/21/16) MCH: 27.7 (02/21/16) MCHC: 33.4 (02/21/16) MCV: 83.0 (02/21/16) Vance%: 7.0 (02/21/16) Neut%: 65.4 (02/21/16) Protein, Total: 6.9 (02/21/16) RBC: 5.44 (02/21/16) RDW: 13.4 (02/21/16) Report: Report (02/21/16) Specific [place]: 1.012 (02/21/16) UA Squam Epithelial: Many (02/21/16) UA Urobilinogen: <2.0 (02/21/16) UBacteria: Rare (02/21/16) UBilirubin: Negative (02/21/16) UBlood: Negative (02/21/16) UGlucose: Negative (02/21/16) UKetones: Negative (02/21/16) ULeukocyte Esterase: Negative (02/21/16) UMucous: Moderate (02/21/16) UNitrite: Neg (02/21/16) UpH: 7 (02/21/16) UProtein: Negative (02/21/16) URBC: 0-2 (02/21/16) Urine WBCs: 0-2 (02/21/16) Assessment/Plan Acute gallstone pancreatitis -U/S imaging with cholelithiasis, choledocolithiasis, biliary dilation and gallbladder wall thickening -symptom management with npo, aggressive IV fluids, pain control and antiemetics -lipase elevated at >1000, will monitor -LFTs with mild elevation of AST, will monitor -GI, Dr. Fall, on consult, plans for ERCP with Dr. Allen tomorrow for stone extraction -Gen Surgery, Dr. Farah, on consult, will see patient tomorrow, will assess for possible cholecystectomy during this admission Elevated blood pressure -patient denies hx of hypertension, elevated likely due to pain but remained elevated when pain controlled -will start low dose amlodipine for now and adjust accordingly VTE ppx: SCDs, hold antiocagulation until after ERCP tomorrow GI ppx: ppi Anticipate patient will require more than 2 midnights Problem List/Past Medical History Ongoing Gallstones HTN (hypertension) Uterine cancer Historical No qualifying data Procedure/Surgical History Hysterectomy. Medications Inpatient amLODIPine, 5 mg, 1 Tab, PO, qDay docusate sodium, 100 mg, 1 Cap, PO, BID heparin, 5000 Unit, 1 mL, SUBCUT, q12hr hydrALAZINE, 10 mg, 0.5 mL, IV Push, q4hr, PRN influenza virus vaccine, inactivated, 0.5 mL, IM, x1 KCl 10 mEq/100 mL IVPB, 10 mEq, 100 mL, IV, Per Parameter, PRN magnesium sulfate, 1 gm, 100 mL, IV, Per Parameter, PRN magnesium sulfate 2 gm IVPB, 2 gm, 50 mL, IV, Per Parameter, PRN magnesium sulfate 3 gm IVPB, 3 gm, 50 mL, IV, Per Parameter, PRN magnesium sulfate 4 gm IVPB, 4 gm, 100 mL, IV, Per Parameter, PRN morphine INJ, 1 - 3 mg, IV Push, q4hr, PRN NaCl 0.9% 1,000 mL, 1000 mL, IV nalOXone, 0.2 mg, 0.5 mL, IV Push, q2min, PRN potassium chloride LIQUID, 20 - 40 mEq, PO, Per Parameter, PRN Senokot, 8.6 mg, 1 Tab, PO, qHS, PRN Tylenol oral TABLET, 650 mg, 2 Tab, PO, q4hr, PRN Zofran, 4 mg, 2 mL, IV Push, q4hr, PRN Zofran, 4 mg, 2 mL, IV Push, q4hr, PRN Home acetaminophen-HYDROcod 325/5, 2 Tab, PO, every 6 hours, PRN omeprazole 20 mg oral enteric coated capsule ondansetron 4 mg oral tablet, disintegrating, 4 mg, 1 Tab, PO, TID, PRN Allergies penicillins Reaction: None Documented Social History Alcohol Denies Home/Environment Christian restrictions/concerns: None. Substance Abuse Denies Tobacco Never used tobacco, Never used tobacco Family History Diabetes mellitus...: Sister. Heart attack...: Mother. Hypertension...: Mother. Diagnostic Results PROCEDURE: US ABDOMEN LIMITED INDICATIONS: RUQ abd pain CONCLUSION: 1. Cholelithiasis and choledocholithiasis with thickening of the gallbladder wall and biliary dilatation. 2. Borderline hepatomegaly with a small right hepatic cyst b Electronically Signed By: Akbar Almeida MD On 02/21/16 23:45 Co Signature By: Modified Signature By: Akbar Almeida MD On 02/21/16 14:09 02/21/2016 [facility] Vital Signs Vital Sign Value Date Comments Source Monitored Cardiac Rhythm Normal sinus rh ythm (02/24/16 12:50 PM) 02/24/2016 [facility] Oxygen Amount Room air (02/24/16 8:02 AM) 02/24/2016 [facility] SPO2 98 % 02/24/2016 [facility] Heart Rate 68 bpm 02/24/2016 [facility] Temperature PO 37.0 Robyn 02/24/2016 [facility] Respiratory Rate 16 Breaths/Min 02/24/2016 [facility] Systolic 136 mm[Hg] 02/24/2016 [facility] Diastolic 75 mm[Hg] 02/24/2016 [facility] Monitored Cardiac Rhythm Normal sinus rh ythm (02/24/16 7:30 AM) 02/24/2016 [facility] Glucose Level 121 mg/dL 02/24/2016 [facility] SPO2 100 % 02/24/2016 [facility] NIBP Mean 101 mm[Hg] 02/24/2016 [facility] Oxygen Amount Room air (02/24/16 4:00 AM) 02/24/2016 [facility] Systolic 131 mm[Hg] 02/24/2016 [facility] Diastolic 70 mm[Hg] 02/24/2016 [facility] Heart Rate 66 bpm 02/24/2016 [facility] Respiratory Rate 16 Breaths/Min 02/24/2016 [facility] Temperature PO 37 Robyn 02/24/2016 [facility] Monitored Cardiac Rhythm Normal sinus rh ythm (02/24/16 4:00 AM) 02/24/2016 [facility] Oxygen Amount Room air (02/24/16 12:25 AM) 02/24/2016 [facility] Respiratory Rate 16 Breaths/Min 02/24/2016 [facility] Systolic 130 mm[Hg] 02/24/2016 [facility] Diastolic 74 mm[Hg] 02/24/2016 [facility] SPO2 97 % 02/24/2016 [facility] Heart Rate 65 bpm 02/24/2016 [facility] Temperature PO 36.9 Robyn 02/24/2016 [facility] NIBP Mean 94 mm[Hg] 02/24/2016 [facility] NIBP Mean 91 mm[Hg] 02/24/2016 [facility] Oxygen Method Simple mask (02/23/16 10:25 AM) 02/23/2016 [facility] Oxygen Method Simple mask (02/23/16 10:20 AM) 02/23/2016 [facility] Oxygen Method Simple mask (02/23/16 10:15 AM) 02/23/2016 [facility] Temperature Temporal Artery 36.5 Robyn 02/23/2016 [facility] Glucose Level 71 mg/dL 02/23/2016 [facility] FIO2 - pt care 95% (02/22/16 7:02 PM) 02/23/2016 [facility] Temperature Temporal Artery 37.0 Robyn 02/22/2016 [facility] Glucose Level 85 mg/dL 02/22/2016 [facility] Balancing Self (02/21/16 1:21 PM) 02/21/2016 [facility] Sensory Deficits None (02/21/16 1:21 PM) 02/21/2016 [facility] Living Situation Lives with spouse (02/21/16 1:21 PM) 02/21/2016 [facility] Current Home Treatments None (02/21/16 1 :21 PM) 02/21/2016 [facility] Eating Self (02/21/16 1:21 PM) 02/21/2016 [facility] Bathing Self (02/21/16 1:21 PM) 02/21/2016 [facility] Walking Self (02/21/16 1:21 PM) 02/21/2016 [facility] Toileting Self (02/21/16 1:21 PM) 02/21/2016 [facility] Transferring Self (02/21/16 1:21 PM) 02/21/2016 [facility] Dressing Self (02/21/16 1:21 PM) 02/21/2016 [facility] Sensory Deficits None (02/21/16 8:40 AM) 02/21/2016 [facility] Heart Rate 69 bpm 02/13/2016 [facility] SPO2 98 % 02/13/2016 [facility] Respiratory Rate 18 Breaths/Min 02/13/2016 [facility] Systolic 197 mm[Hg] 02/13/2016 [facility] Diastolic 98 mm[Hg] 02/13/2016 [facility] Heart Rate 64 bpm 02/13/2016 [facility] Respiratory Rate 19 Breaths/Min 02/13/2016 [facility] SPO2 98 % 02/13/2016 [facility] Systolic 189 mm[Hg] 02/13/2016 [facility] Diastolic 97 mm[Hg] 02/13/2016 [facility] Glucose Level 173 mg/dL 02/13/2016 [facility] Systolic 201 mm[Hg] 02/13/2016 [facility] Diastolic 98 mm[Hg] 02/13/2016 [facility] Temperature PO 36.7 Robyn 02/13/2016 [facility] Sensory Deficits None (02/13/16 7:29 AM) 02/13/2016 [facility] SPO2 99 % 02/13/2016 [facility] Respiratory Rate 19 Breaths/Min 02/13/2016 [facility] Heart Rate 67 bpm 02/13/2016 [facility] Encounters Location Location Details Encounter Type Encounter Number Reason For Visit Attending Provider ADM Date DC Date Status Source [facility] Emergency [id number] Kenji Kaye 02/12 [facility] Inpatient [id number] Gina Lozano 02/20 [facility] Procedures Procedure Code Date Perfomer Comments Source RESECTION OF GALLBLADDER, PERCUTANEOUS ENDOSCOPIC APPROACH [id number] 02/23/2016 [facility] FLUOROSCOPY OF BILE DUCTS USING OTHER CONTRAST [id number] 02/23/2016 [facility] DILATION OF COMMON BILE DUCT, ENDO [id number] 02/22/2016 [facility] EXTIRPATION OF MATTER FROM COMMON BILE DUCT, ENDO [id number] 02/22/2016 [facility] Hysterectomy (procedure) [id number] [facility] Social History Social History Date Source Social History TypeResponse Tobacco Never used tobacco, Never used tobacco 02/13/2016 [facility] Assessment and Plan Result Assessment and Plan Date Source Assessment and Plan Extracted from:Title : Preop Note SW Author: Lester Allen MD Date: 02/22/16 Plan Plan for Sedation: Sedation Moderate. Informed Consent Patient was informed of the nature of the planned sedation and procedure, its risks, complications and expected benefits or effects, any alternatives to this treatment along with risks and benefits, and possible results of not receiving treatment. Evaluation Patient's airway, heart, lungs, vital organs, EKG (if required) and level of consciousness have been evaluated immediately prior to start of sedation with no change in plan. Extracted from:Title: Admission H and P Author: Akbar Almeida MD Date: 02/21/16 Assessment/Plan Acute gallstone pancreatitis -U/S imaging with cholelithiasis, choledocolithiasis, biliary dilation and gallbladder wall thickening -symptom management with npo, aggressive IV fluids, pain control and antiemetics -lipase elevated at >1000, will monitor -LFTs with mild elevation of AST, will monitor -GI, Dr. Fall, on consult, plans for ERCP with Dr. Allen tomorrow for stone extraction -Gen Surgery, Dr. Farah, on consult, will see patient tomorrow, will assess for possible cholecystectomy during this admission Elevated blood pressure -patient denies hx of hypertension, elevated likely due to pain but remained elevated when pain controlled -will start low dose amlodipine for now and adjust accordingly VTE ppx: SCDs, hold antiocagulation until after ERCP tomorrow GI ppx: ppi Anticipate patient will require more than 2 midnights Extracted from:Title: Consult Note Author: Benja Fall DO Date: 02/21/16 Assessment/Plan A. 1. Gallstone Pancreatitis secondary to biliary stone 2. Choledocholithiasis on U/S with dilated CBD 3. Cholelithiasis with GBW thickening as well P. 1. Discussed with patient plan for ERCP with sphincterotomy and stone extraction tomorrow with Dr. Allen - timing to be decided 2. NPO for now 3. Recommend 200 cc IVF /hr 4. supportive care, pain management 02/24/2016 [facility]
== END 2024-04-14 13:37 | disposition home or self-care (01) ==
LOC: HO.HMGCX 13:36
PROVIDERS: PCP Internal Medicine; Visit Provider Urology
DX: R35.0 Frequency of micturition (principal)
CPT/HCPCS: 76775

== ENCOUNTER 2024-09-23 14:22 | Outpatient (REF) | payer MEDICARE, SELFPAY | END 2024-09-23 14:23 | disposition home or self-care (01) | LOC: HO.MAMMO 14:22 | PROVIDERS: PCP Internal Medicine; Visit Provider Internal Medicine | DX: Z12.31 Encounter for screening mammogram for malignant neoplasm of breast (principal) | CPT/HCPCS: 77063; 77067 ==

== ENCOUNTER → 2024-09-23 14:30 | Outpatient (BNV) | payer MEDICARE, SELFPAY | PROVIDERS: PCP Internal Medicine; Visit Provider Internal Medicine | DX: Z12.31 Encounter for screening mammogram for malignant neoplasm of breast (principal) | CPT/HCPCS: 77063; 77067 ==

== ENCOUNTER 2025-04-20 09:03 | Outpatient (REF) | payer MEDICARE, SELFPAY ==
[2025-04-20 15:06] LABS: MANUAL DIFF FLAG NO
[2025-04-20 15:11] LABS: Hematocrit 40.2 % (37.0-47.0); Hemoglobin 12.7 g/dl (12.0-16.0); Imm Gran Abs Auto 0.02 X10*3/uL (0.00-0.03); Imm Gran Pct Auto 0.3 % (0.0-0.4); Lymphocytes Absolute Auto 1.5 X10*3/uL (1.2-4.9); Mean Corpuscular HGB Conc 31.6 g/dl (31.0-35.0); Mean Corpuscular Hemoglobin 27.4 pg (27.0-33.0); Mean Corpuscular Volume 86.6 fL (80.0-98.0); NRBC Abs Auto 0.000 X10*3/uL (0.0-0.012); NRBC Pct Auto 0.0 /100WBC (0.0-0.2); Platelet Count 326 X10*3/uL (160-400); Red Blood Count 4.64 X10*6/uL (4.20-5.50); White Blood Count 7.0 X10*3/uL (4.8-10.8)
[2025-04-20 15:47] LABS: Alanine Aminotransferase 11 U/L (0-31); Albumin Level 4.0 g/dL (3.5-5.0); Alkaline Phosphatase 84 U/L (39-117); Anion Gap 11 (12-20); Aspartate Amino Transferase 31 U/L (5-31); Blood Urea Nitrogen 23 mg/dL (9-16); Calcium 9.2 mg/dL (8.4-10.2); Carbon Dioxide 29 mmol/L (22-29); Chloride 106 mmol/L (96-108); Cholesterol 204 mg/dL (<200); Estimated Glomerular Filt Rate > 60; HDL Cholesterol 64 mg/dL (>40); Potassium 3.8 mmol/L (3.3-5.1); Sodium 142 mmol/L (135-145); Total Protein 6.3 g/dL (6.5-8.0); Triglycerides 64 mg/dL (<150)
[2025-04-21 08:29] LABS: HBS Num1 36.98 mIU/mL (0-7.99); HBc Num1 0.12 S/CO (0.00-0.79); HBsAGNum1 0.40 S/CO (0.00-0.99); Hepatitis B Surface Antigen Negative (Negative); ~HepC Num1 0.09 S/CO (0.00-0.79); ~Hepatitis B Surface Antibody REACTIVE (Nonreactive); ~Hepatitis C Antibody Nonreactive (Nonreactive)
[2025-04-23 05:04] LABS: TS Negative Control Passed; TS Panel A 1; TS Panel B 0; TS Positive Control Passed; TSpotTB Negative (Negative)
== END 2025-04-20 09:04 | disposition home or self-care (01) ==
LOC: HO.CHCLDS 09:03
DX: Z11.1 Encounter for screening for respiratory tuberculosis (principal); Z79.899 Other long term (current) drug therapy
CPT/HCPCS: 36415; 80053; 80061; 84443; 85025; 86481; 86704; 86706; 86803; 87340